=== PATIENT | female | born 1955 | race Caucasian/White ===

== ENCOUNTER 2017-01-04 19:19 | Emergency (ER) | payer OTHER ==
[~2017-01-04] VITALS: Ht 152.4 cm; Wt 67.1 kg
[2017-01-04 19:24] VITALS: TEMP 36.8; Ht 152.4 cm; Wt 67.1 kg
[2017-01-04] MEDS ORDERED: DIAZEPAM 5MG TAB PO ONE (20:00)
[2017-01-04] MEDS ORDERED: IBUP-103 PO (20:31)
--- NOTE | 2017-01-04 21:10 | DIAGNOSTIC IMAGING REPORT ---
CERVICAL SPINE 2 OR 3 VIEWS HISTORY: Pain neck pain COMPARISON: None. FINDINGS: The cervical spine is visualized from C1 through the superior endplate of T1. There is no fracture. Degenerative disc change C5-C7. Anterior and posterior osteophytic change throughout. No evidence for a compression deformity. Prevertebral soft tissues and the atlantodens interval are intact. IMPRESSION: Considerable degenerative change of the mid to lower cervical spine. No acute process. The above report was generated using voice recognition software. It may contain grammatical, syntax or spelling errors. Electronically signed by: Mendoza Jones M.D. 01/04/2017 9:08 PM Dictated Date/Time: 01/04/2017 9:08 PM
--- NOTE | 2017-01-04 21:11 | DIAGNOSTIC IMAGING REPORT ---
THORACIC SPINE 3 VIEWS ROUTINE HISTORY: Pain back pain COMPARISON: None. FINDINGS: There is no fracture. Mild S shaped scoliosis. Moderate degenerative disc change throughout the entire thoracic region. IMPRESSION: Degenerative change. No acute process. The above report was generated using voice recognition software. It may contain grammatical, syntax or spelling errors. Electronically signed by: Mendoza Jones M.D. 01/04/2017 9:09 PM Dictated Date/Time: 01/04/2017 9:09 PM
[2017-01-04] MEDS ORDERED: CYCL5TAB PO (21:25)
--- NOTE | 2017-01-04 21:25 | EMERGENCY ROOM VISIT NOTE ---
ED Visit Note First contact with patient: 19:48 CHIEF COMPLAINT: Low back pain HISTORY OF PRESENT ILLNESS: This 61-year-old female patient presents to the emergency department ambulatory, with her , complaining of pain in the mid back which began in the middle of the night. The patient states yesterday, she had been moving gadgets around in her room, and doing more physical labor than she normally does. She states nothing was overly heavy, however states this was more active than normal. The patient was awoken at approximately 0130 hrs. with significant back stiffness. She states she attempted to take a warm bath, which did not help to settle down her pain. The patient has intermittently been applying cold and heat to the back throughout the day, none of which has been helping. The pain is now constant and worse with movement. The patient is now experiencing back spasms intermittently, but frequently. The patient notes the pain as a constant soreness at rest and a 4/10, but pain worsens with movement and spasms to an 8/10. The patient has taken ibuprofen every 4 hours without relief of the pain. The patient denies any loss of control of their bowel or bladder functions. There has been no leg numbness or weakness, and no change in sensation. No nausea or vomiting or abdominal pain. No chest pain or shortness of breath. The patient has not had prior back injuries. No dysuria or increased urinary frequency. REVIEW OF SYSTEMS: A 10-system review of systems was performed with positives and pertinent negatives listed in the history of present illness. All other systems were reviewed and are negative. ALLERGIES: Gentamicin, aminoglycosides MEDICATIONS: None PMH: Kidney stones SOCIAL HISTORY: The patient lives locally alone. She denies drug, alcohol, tobacco use. PHYSICAL EXAM: VITALS: Vitals are noted on the nurse's note and reviewed by myself. Vital signs stable. GENERAL: 61-year-old female, in no acute distress, nondiaphoretic, well- developed well-nourished. SKIN: The skin was without rashes, erythema, edema, or bruising. Capillary refill less than 2 seconds. NECK: Supple without nuchal rigidity. No cervical spine tenderness. No paraspinous muscle tenderness. HEART: Regular rate and rhythm without murmurs gallops or rubs. LUNGS: Clear to auscultation bilaterally without wheezes, rales or rhonchi. ABDOMEN: Positive bowel sounds x 4. Normal tympanic percussion. Soft, nontender, without masses or organomegaly. Zhang sign negative. MUSCULOSKELETAL: No muscle atrophy, erythema, or edema noted of the back. There is moderate tenderness over the thoracic and cervical spinous processes. There is no tenderness over the lumbar spinous processes. There is moderate tenderness over the paraspinous muscles in the thoracic and cervical region. There are muscle spasms present. The patient is slow to move around with maximum tenderness with position changes. Negative straight leg raise test. NEURO: Patient was alert and oriented to person place and time. Normal sensation to light and sharp touch. Deep tendon reflexes 2+ in the lower extremities. Dorsalis pedis pulse 2+ bilaterally. Strength 5/5 and equal in the bilateral lower extremities. RADIOLOGY: X-Ray Cervical Spine: FINDINGS: The cervical spine is visualized from C1 through the superior endplate of T1. There is no fracture. Degenerative disc change C5-C7. Anterior and posterior osteophytic change throughout. No evidence for a compression deformity. Prevertebral soft tissues and the atlantodens interval are intact. IMPRESSION: Considerable degenerative change of the mid to lower cervical spine. No acute process. X-Ray Thoracic Spine: FINDINGS: There is no fracture. Mild S shaped scoliosis. Moderate degenerative disc change throughout the entire thoracic region. IMPRESSION: Degenerative change. No acute process. EMERGENCY DEPARTMENT COURSE: The patient was seen and evaluated as above. X- rays of the cervical and thoracic spine were obtained and reviewed by myself and radiologist as negative for acute injury. The patient was given Toradol and Valium, which she states did help with her discomfort. I discussed discharge instructions with the patient, and she was discharged home in good condition with a home pack for Flexeril. DIFFERENTIAL DIAGNOSIS: Thoracic strain, cervical strain, cervical fracture, thoracic fracture, degenerative disc disease, malignancy, and others. DIAGNOSIS: Thoracic strain with spasms DISCHARGE INSTRUCTIONS AND TREATMENT: You have been treated in the Emergency Department for Back Pain. You have received pain medicine in the emergency department which impairs your ability to operate a vehicle. It is illegal for you to drive after receiving these medicines. You have been prescribed Flexeril (cyclobenzaprine) 1-2 tabs orally, three times per day. Do NOT exceed 30 mg (6 tabs) per day. Take your first dose at bedtime as it can make you drowsy. Always take all medications as prescribed. For pain control, you can use the following smwo-wpu-kwjgevw medicines (if >12 yo): - Extra strength (500mg/tab) Tylenol (acetaminophen) 2 tabs every 6-8 hours as needed. Do not exceed 6 tablets in a 24 hour period. Avoid taking more than 3 grams (3000 mg) of Tylenol per day. This includes any other sources of acetaminophen you may take on a regular basis. - Regular strength (200 mg/tab) Advil (ibuprofen) 2-3 tabs every 6-8 hours as needed. Do not exceed a dose of 3200 mg per day. A heating pad can be used over the area for continued soothing relief. You should schedule a follow-up appointment in 2-3 days with your Primary Care Provider for further evaluation and treatment of your back pain. You may consider contacting orthopedics for further evaluation and management if no improvement. Consider taking the following for your arthritis: - Fish Oil 2000mg twice daily - Glucosamine as directed - Tumeric 500mg daily Return to the Emergency Department if your current symptoms worsen despite treatment course outlined above, or if you develop any of the following symptoms : intractable pain despite aforementioned treatment course, loss of control of your bowel or bladder, numbness or tingling in your groin, or development of a fever. Current/Historical Medications Scheduled Cyclobenzaprine Hcl (Flexeril), 5 MG PO TID Ibuprofen Tab (Advil), 200-600 MG PO Q4H Allergies Coded Allergies: Aminoglycosides (Verified Allergy, Mild, EYE BECAME RED,SWOLLEN WITH OPTH IDA, 01/04/17) Gentamicin (Verified Allergy, Mild, EYE BECAME RED,SWOLLEN WITH OPTH IDA, 01/04/17) Vital Signs Date Time Temp Pulse Resp B/P (MAP) Pulse Ox O2 Delivery O2 Flow Rate FiO2 01/04/17 21:27 74 16 131/77 99 01/04/17 19:24 36.8 90 18 155/72 98 Room Air Medications Administered Medications (Trade) Dose Ordered Sig/Paulino Route Start Time Stop Time Status Last Admin Dose Admin Diazepam (Valium Tab) 5 mg NOW ONCE PO 01/04/17 20:00 01/04/17 20:02 DC 01/04/17 20:09 5 MG Cyclobenzaprine HCl (FLEXERIL 10MG Home Pack) 1 homepack UD ONCE PO 01/04/17 21:30 01/04/17 21:31 DC 01/04/17 21:30 1 HOMEPACK Departure Information Impression Primary Impression: Back pain Additional Impression: Neck pain Dispostion Home / Self-Care Condition GOOD Prescriptions Cyclobenzaprine Hcl (FLEXERIL) 5 Mg Tab 5 MG PO TID, #15 TAB PRN Prov: Dolores Montoya DAJUAN Mendoza 01/04/17 Referrals No Doctor, Assigned (PCP) Patient Instructions ED Spasm Muscle, [facility] Additional Instructions You have been treated in the Emergency Department for Back Pain. You have received pain medicine in the emergency department which impairs your ability to operate a vehicle. It is illegal for you to drive after receiving these medicines. You have been prescribed Flexeril (cyclobenzaprine) 1-2 tabs orally, three times per day. Do NOT exceed 30 mg (6 tabs) per day. Take your first dose at bedtime as it can make you drowsy. Always take all medications as prescribed. For pain control, you can use the following lyxd-met-towcbiw medicines (if >12 yo): - Extra strength (500mg/tab) Tylenol (acetaminophen) 2 tabs every 6-8 hours as needed. Do not exceed 6 tablets in a 24 hour period. Avoid taking more than 3 grams (3000 mg) of Tylenol per day. This includes any other sources of acetaminophen you may take on a regular basis. - Regular strength (200 mg/tab) Advil (ibuprofen) 2-3 tabs every 6-8 hours as needed. Do not exceed a dose of 3200 mg per day. A heating pad can be used over the area for continued soothing relief. You should schedule a follow-up appointment in 2-3 days with your Primary Care Provider for further evaluation and treatment of your back pain. You may consider contacting orthopedics for further evaluation and management if no improvement. Consider taking the following for your arthritis: - Fish Oil 2000mg twice daily - Glucosamine as directed - Tumeric 500mg daily Return to the Emergency Department if your current symptoms worsen despite treatment course outlined above, or if you develop any of the following symptoms : intractable pain despite aforementioned treatment course, loss of control of your bowel or bladder, numbness or tingling in your groin, or development of a fever. Problem Qualifiers Primary Impression: Back pain Back pain location: thoracic back pain Chronicity: acute Back pain laterality: bilateral Qualified Codes: M54.6 - Pain in thoracic spine
[2017-01-04 21:27] VITALS: BP 131/77; PULSE 74; O2SAT 99
[2017-01-04] MEDS ORDERED: FLEXERIL HOME PACK 10 MG VIAL PO ONE (21:30)
== END 2017-01-04 21:34 | disposition home or self-care (01) ==
LOC: C.EDB 19:20
DX: S39.012A Strain of muscle, fascia and tendon of lower back, initial encounter (principal); M62.830 Muscle spasm of back; M54.2 Cervicalgia; X58.XXXA Exposure to other specified factors, initial encounter; Z87.442 Personal history of urinary calculi

== ENCOUNTER 2018-01-19 20:51 | Emergency (ER) | payer OTHER ==
[~2018-01-19] VITALS: Ht 152.4 cm; Wt 65.9 kg
[~2018-01-19 20:51] MED LIST: IBUP-103 PO
[2018-01-19 20:57] VITALS: TEMP 36.6; Ht 152.4 cm; Wt 65.9 kg
--- NOTE | 2018-01-19 21:27 | DIAGNOSTIC IMAGING REPORT ---
R FOOT MIN 3 VIEWS ROUTINE CLINICAL HISTORY: right foot injury trauma. Pain. COMPARISON: None. DISCUSSION: The bones and joint spaces appear intact. There is no evidence of fracture, dislocation or bony disease. There is no evidence for soft tissue swelling. IMPRESSION: Negative study. The above report was generated using voice recognition software. It may contain grammatical, syntax or spelling errors. Electronically signed by: Mendoza Jones M.D. 01/19/2018 9:26 PM Dictated Date/Time: 01/19/2018 9:25 PM
--- NOTE | 2018-01-19 21:50 | DIAGNOSTIC IMAGING REPORT ---
R ANKLE MIN 3 VIEWS ROUTINE CLINICAL HISTORY: ankle pain, eval fx trauma. Pain. COMPARISON: None. DISCUSSION: Small old avulsion tip medial malleolus. Calcific fragment is well-corticated. No acute bony abnormality. Small heel spur. Mild ossification Achilles tendon insertion. There is no evidence for soft tissue swelling. IMPRESSION: No acute process. Small heel spur. Small old avulsion medial malleolus. The above report was generated using voice recognition software. It may contain grammatical, syntax or spelling errors. Electronically signed by: Mendoza Jones M.D. 01/19/2018 9:49 PM Dictated Date/Time: 01/19/2018 9:48 PM
--- NOTE | 2018-01-19 21:51 | EMERGENCY ROOM VISIT NOTE ---
ED Visit Note First contact with patient: 21:16 CHIEF COMPLAINT: Ankle pain HISTORY OF PRESENT ILLNESS: This 62-year-old female patient presents to the emergency department by private vehicle after sustaining an injury to the right ankle and foot 3 days ago. 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 The patient rates the pain as aching, throbbing and 6/10. The patient is not able to bear weight on the foot. Constant pain, worse with movement, weight bearing, and the dependent position. No knee pain, the patient is able to move their toes. No numbness or weakness of the foot, no laceration. The patient has not had a previous fracture to this ankle. The patient has taken ibuprofen for the pain with improvement in her pain. The patient denies any other injury. REVIEW OF SYSTEMS: A 6 system review of systems was completed with positives and pertinent negatives listed in the HPI. ALLERGIES: Reviewed in chart, see below MEDICATIONS: No current medications. PMH: No significant past medical or surgical history. SOCIAL HISTORY: Lives at home. Denies tobacco use. PHYSICAL EXAM: Vital Signs: Reviewed Nurse's notes, vital signs stable. GENERAL : Pleasant and cooperative, no acute distress, well-developed, well-nourished. MENTAL STATUS: Alert, oriented to person place and time, and cooperative. MUSCULOSKELETAL: The right ankle is mildly swollen and tender over the medial malleolus and midfoot, but the skin is intact and there is no ligamentous instability. There is no fifth metatarsal tenderness. There is no tenderness over the rest of the foot. There is no calf or tibia/fibular tenderness. There is no visual deformity. The foot and toes are warm and well-perfused. Dorsalis pedis pulse 2+. Sensation to pain and light touch is intact. Capillary refill less than 2 seconds. EMERGENCY DEPARTMENT COURSE: I examined the patient. Differential diagnosis includes contusion, sprain/strain, fracture, dislocation, among others. X-rays of the right foot and ankle were reviewed by myself and read by radiology and reveal no fracture. Gel ankle splint was applied to the ankle under my direction and the position was satisfactory. Neurovascular status was rechecked and intact. The patient was instructed on the use of crutches. Patient was educated regarding continued pain management at home, she was encouraged to follow-up with the orthopedic surgeon, was given strict return precautions should her symptoms worsen, she verbalized understanding. The patient was discharged home in good condition. Current/Historical Medications Scheduled Ibuprofen Tab (Advil), 200-600 MG PO Q4H Allergies Coded Allergies: Aminoglycosides (Verified Allergy, Mild, EYE BECAME RED,SWOLLEN WITH OPTH IDA, 01/04/17) Gentamicin (Verified Allergy, Mild, EYE BECAME RED,SWOLLEN WITH OPTH IDA, 01/04/17) Vital Signs Date Time Temp Pulse Resp B/P (MAP) Pulse Ox O2 Delivery O2 Flow Rate FiO2 01/19/18 22:39 81 18 124/79 96 01/19/18 20:57 36.6 90 18 131/83 96 Room Air Departure Information Impression Primary Impression: Contusion of right foot Additional Impression: Sprain of right medial ankle joint Dispostion Home / Self-Care Condition GOOD Referrals No Doctor, Assigned (PCP) Candido Segura D.O. Patient Instructions ED Contusion Foot, ED Crutch Walking, ED Sprain Ankle, [facility] Additional Instructions DISCHARGE INSTRUCTIONS: You have been evaluated and treated in the emergency department today for your right foot and ankle injury. X-rays today[] Ice and elevation for 2 days, use crutches to avoid weight bearing on the right foot, wear the splint on the right ankle for support. Ibuprofen 600 mg and Tylenol 650 mg every 6 hours if needed for pain. For best results, alternate between Tylenol and ibuprofen every 3-4 hours. Follow up with the orthopedic surgeon next week--call for an appointment. Please return to the emergency department for any worsening symptoms, including severe worsening pain, severe worsening swelling, loss of feeling in the foot, discoloration of the foot, or any other concerns. Problem Qualifiers
[2018-01-19 22:39] VITALS: BP 124/79; PULSE 81; O2SAT 96
== END 2018-01-19 22:30 | disposition home or self-care (01) ==
LOC: C.EDB 20:52 → C.EDD 22:30
DX: S90.31XA Contusion of right foot, initial encounter (principal); S93.401A Sprain of unspecified ligament of right ankle, initial encounter; X50.1XXA Overexertion from prolonged static or awkward postures, initial encounter; Y92.010 Kitchen of single-family (private) house as the place of occurrence of the external cause; Z88.1 Allergy status to other antibiotic agents

== ENCOUNTER 2021-04-18 13:42 | Inpatient (IN) ==
[2021-04-18] MEDS ORDERED: NITROGLYCERIN 2% OINTMENT 30GM TUBE EXT STA (14:30)
--- NOTE | 2021-04-18 14:38 | Emergency Department Note ---
History of Present Illness General Chief complaint: Chest Pain Stated complaint: CHEST HEAVINESS,SOB,LIGHTHEADED Time Seen by Provider: 04/18/21 13:55 Source: patient Mode of arrival: ambulatory Limitations: no limitations History of Present Illness Provider complaint: chest pain into back Onset (ago): day(s) 2 Location: chest Radiation: back Pain Consistency: + intermittent Maximum Pain Intensity: 8 Relieved By: + rest Exacerbated By: + movement Associated symptoms: + chest pain and + shortness of breath; no fever/chills, no loss of appetite, no malaise, no nausea/vomiting or no syncope Treatments prior to arrival: none This is a 65-year-old female presents emergency department with concern for chest pain. Patient states a few days ago she began having intermittent chest heaviness/pressure. She states this was mostly with exertion and would go away with rest. She denies accompanying symptoms. She thought initially it might be an exacerbation of her COPD which she has due to a prior smoking history. She states today while seated at [employer] the pain ball returned only this time was more persistent and continued to worsen. She and her went to the grocery store to shop following [employer] and pain continued to worsen with exertion. No other recent illness, fevers, no change in activity. No recent dietary changes or history of significant GERD. Patient denies any worsening cough, nasal congestion, rhinorrhea. Patient denies any black or bloody stools. She denies any lower extremity edema. No prior cardiac evaluation, no history of heart problems. Patient does state her mother had a heart attack at about this age. Pt seen during a time of high acuity and national emergency pandemic while wearing PPE. Home Medications Medication Instructions Recorded Confirmed Type fluticasone 113mcg-salmeterol 1 inh INHALATION BID 07/16/20 04/18/21 History 14mcg/actuation breath act,powder sensor ([employer] Dig[employer]) omeprazole 20 mg capsule,delayed 20 mg PO DAILY 07/16/20 04/18/21 History release mupirocin 2 % topical ointment See Rx Instructions TOPICAL BID 04/19/21 Rx PRN #15 g aspirin 81 mg tablet,delayed 81 mg PO QAM #30 tab 04/20/21 Rx release atorvastatin 40 mg tablet 40 mg PO QAM #30 tab 04/20/21 Rx clopidogrel 75 mg tablet 75 mg PO QAM #30 tab 04/20/21 Rx Allergies Allergy/AdvReac Type Severity Reaction Status Date / Time Aminoglycosides Allergy Mild EYE BECAME Verified 04/18/21 14:25 RED,SWOLLEN WITH OPTH IDA gentamicin Allergy Mild EYE BECAME Verified 04/18/21 14:25 RED,SWOLLEN WITH OPTH IDA Past Med/Surg History Medical History (Updated 04/18/21 @ 20:32 by Jd Tamayo MD) Conductive hearing loss of both ears COPD (chronic obstructive pulmonary disease) H/O gastroesophageal reflux (GERD) Sensorineural hearing loss of both ears Surgical History History of cholecystectomy History of hysterectomy History of lithotripsy History of repair of rotator cuff Family History Father Cancer Hearing loss Hypertension Heart disease Mother Hypertension Heart disease Sister Asthma Other No family history of allergies No family history of bleeding disorder Denies family history of Stroke Social History Smoking Status: Former smoker Tobacco Type: Cigarettes packs per day: 1; Cigarettes Per Day: x 25-30 years, quit in 1981; Hx Alcohol Use: No Hx Substance Use: No Preferred Language: Belarusian Communication Ability: Effective Dental Technician Apprentice Required: No Beliefs That Will Affect Care: None marital status: / Current Living Situation: Family Current Living Situation Comment: Lives in a home with her son and daughter in law current occupational status: retired How many Children do You have: 2 Feels Safe at Home: Yes Assistive Devices: Glasses Review of Systems A total of 10 systems reviewed and were otherwise negative All systems reviewed & are unremarkable except as noted in HPI & below Physical Exam Vital Signs Vital Signs - 24 hr 04/18/21 13:46 04/18/21 14:15 04/18/21 14:30 Temperature 36.4 C L Temperature Source Temporal Artery Scan Pulse Rate 83 67 63 Pulse Rate [Right Finger] Pulse Rate from SpO2 Sensor 65 65 Pulse Rhythm [Right Finger] Pulse Strength [Right Finger] Respiratory Rate 18 16 12 Respiratory Effort / Characteristics Non-Labored Respiratory Depth Normal Respiratory Pattern Regular Blood Pressure 195/94 H 142/81 H Blood Pressure [Left Arm] Blood Pressure Mean 127 101 Blood Pressure Mean [Left Arm] Blood Pressure Position Sitting Blood Pressure Position [Left Arm] Pulse Oximetry 96 97 97 Oxygen Delivery Method Room Air Sepsis Recent Fever Within 48 Hours No Sepsis New/Unexplained Change in Mental Status No Sepsis Action Taken by Nursing No Action Required 04/18/21 15:00 04/18/21 15:30 04/18/21 15:43 Temperature Temperature Source Pulse Rate 63 66 Pulse Rate [Right Finger] 71 Pulse Rate from SpO2 Sensor 62 65 Pulse Rhythm [Right Finger] Regular Pulse Strength [Right Finger] Normal Respiratory Rate 14 18 16 Respiratory Effort / Characteristics Non-Labored Respiratory Depth Normal Respiratory Pattern Regular Blood Pressure 146/79 H Blood Pressure [Left Arm] 154/85 H Blood Pressure Mean 101 Blood Pressure Mean [Left Arm] 108 Blood Pressure Position Blood Pressure Position [Left Arm] Lying Pulse Oximetry 97 96 97 Oxygen Delivery Method Room Air Sepsis Recent Fever Within 48 Hours Sepsis New/Unexplained Change in Mental Status Sepsis Action Taken by Nursing 04/18/21 16:00 04/18/21 16:31 04/18/21 17:00 Temperature Temperature Source Pulse Rate 69 Pulse Rate [Right Finger] 65 Pulse Rate from SpO2 Sensor 71 Pulse Rhythm [Right Finger] Regular Pulse Strength [Right Finger] Normal Respiratory Rate 17 16 Respiratory Effort / Characteristics Non-Labored Respiratory Depth Normal Respiratory Pattern Regular Blood Pressure Blood Pressure [Left Arm] 133/64 Blood Pressure Mean Blood Pressure Mean [Left Arm] 87 Blood Pressure Position Blood Pressure Position [Left Arm] Lying Pulse Oximetry 96 97 Oxygen Delivery Method Room Air Sepsis Recent Fever Within 48 Hours Sepsis New/Unexplained Change in Mental Status Sepsis Action Taken by Nursing GENERAL: alert, well appearing, well nourished, no distress, non-toxic EYE EXAM: normal conjunctiva, PERRL and EOM's grossly intact OROPHARYNX: no exudate, no erythema, lips, buccal mucosa, and tongue normal and mucous membranes are moist NECK: supple, no nuchal rigidity, no adenopathy, non-tender LUNGS: Clear to auscultation. Normal chest wall mechanics, no w/r/r HEART: no murmurs, S1 normal and S2 normal, no reproducible chest wall tenderness with palpation ABDOMEN: abdomen soft, non-tender, normo-active bowel sounds, no masses, no rebound or guarding. BACK: Back is symmetrical on inspection and there is no deformity, no midline tenderness, no CVA tenderness. SKIN: no rashes and no bruising UPPER EXTREMITIES: upper extremities are grossly normal. FROM, nml pulses b/l. LOWER EXTREMITIES: No pitting edema. FROM, nml pulses b/l. NEURO EXAM: Normal sensorium, cranial nerves II-XII grossly intact, normal speech, no gross weakness of arms, no gross weakness of legs. Gross sensation intact. Course Course 1654: Pt states symptoms still worse with exertion, improved with rest. VS stable and BP improved. 1800: Discussed with hospitalist. Administered Medications Discontinued Medications Acetaminophen (Acetaminophen 325 Mg Tab) 650 mg PO Q4H PRN PRN Reason: Pain or Fever Stop: 05/18/21 23:05 Last Admin: 04/20/21 05:51 Dose: 650 mg Documented by: [id number] Aspirin (Aspirin Chew 324 Mg) 324 mg PO NOW STA Stop: 04/18/21 17:43 Last Admin: 04/18/21 18:45 Dose: 324 mg Documented by: [id number] Aspirin (Aspirin 81 Mg Ectab) 81 mg PO [facility] Stop: 05/20/21 08:59 Last Admin: 04/20/21 08:51 Dose: 81 mg Documented by: [id number] Atorvastatin Calcium (Atorvastatin 40 Mg Tab) 40 mg PO [facility] Stop: 05/20/21 08:59 Last Admin: 04/20/21 08:51 Dose: 40 mg Documented by: [id number] Clopidogrel Bisulfate (Clopidogrel Bisulfate 300 Mg Tab) Confirm Administered Dose 600 mg .ROUTE .STK-MED ONE Stop: 04/19/21 16:37 Last Admin: 04/19/21 16:37 Dose: 600 mg Documented by: [id number] Clopidogrel Bisulfate (Clopidogrel Bisulfate 75 Mg Tab) 75 mg PO [facility] Stop: 05/20/21 08:59 Last Admin: 04/20/21 08:51 Dose: 75 mg Documented by: [id number] Clopidogrel Bisulfate (Clopidogrel Bisulfate 300 Mg Tab) 300 mg PO NOW STA Stop: 04/19/21 17:59 Last Admin: 04/19/21 21:01 Dose: 300 mg Documented by: [id number] Clopidogrel Bisulfate (Clopidogrel Bisulfate 300 Mg Tab) Confirm Administered Dose 300 mg .ROUTE .STK-MED ONE Stop: 04/19/21 20:30 Last Admin: 04/19/21 21:01 Dose: Not Given Documented by: [id number] Famotidine (Famotidine 20mg/5ml Iv Push) 20 mg IV ONE STA Stop: 04/18/21 17:43 Last Admin: 04/18/21 18:45 Dose: 20 mg Documented by: [id number] Fentanyl Citrate (Fentanyl Citrate 100 Mcg/2 Ml Vial) 50 mcg IV Q15M PRN PRN Reason: Pain Stop: 05/02/21 16:33 Last Admin: 04/18/21 16:46 Dose: 50 mcg Documented by: [id number] Fentanyl Citrate (Fentanyl Citrate 100 Mcg/2 Ml Vial) Confirm Administered Dose 100 mcg .ROUTE .STK-MED ONE Stop: 04/19/21 14:44 Last Admin: 04/19/21 16:11 Dose: 100 mcg Documented by: [id number] Fentanyl Citrate (Fentanyl Citrate 100 Mcg/2 Ml Vial) Confirm Administered Dose 100 mcg .ROUTE .STK-MED ONE Stop: 04/19/21 16:40 Last Increment: 04/19/21 16:40 Dose: 25 mcg Documented by: [id number] Heparin Sodium (Porcine) (Heparin Sod 5,000 Unit/0.5 Ml Vial) 5,000 units SQ Q12 [facility] Stop: 05/18/21 23:05 Last Admin: 04/20/21 08:52 Dose: 5,000 units Documented by: [id number] Admin: 04/19/21 21:02 Dose: Not Given Documented by: [id number] Admin: 04/19/21 10:03 Dose: 5,000 units Documented by: [id number] Admin: 04/19/21 00:51 Dose: Not Given Documented by: [id number] Heparin Sodium (Porcine) (Heparin (Porcine) 1000 Unit/Ml 10 Ml (Pick Up Driver Use Only)) Confirm Administered Dose 10,000 units .ROUTE .STK-MED ONE Stop: 04/19/21 14:43 Last Admin: 04/19/21 16:24 Dose: 10,000 units Documented by: [id number] Heparin Sodium/Sodium Chloride (Heparin In Nss Infusion 1000 Unit/500 Ml (2 U/Ml) Bag) Confirm Administered Dose 3,000 units IV .STK-MED ONE Stop: 04/19/21 14:44 Last Admin: 04/19/21 17:32 Dose: Not Given Documented by: [id number] Sodium Chloride (Nss 1000ml) 1,000 mls @ 125 mls/hr IV .Q8H [facility] Stop: 05/18/21 14:44 Last Admin: 04/19/21 06:59 Dose: Not Given Documented by: [id number] Infusion: 04/18/21 22:29 Dose: 0 mls/hr Documented by: [id number] Admin: 04/18/21 14:56 Dose: 125 mls/hr Documented by: [id number] Sodium Chloride (Nss 1000ml) 1,000 mls @ 100 mls/hr IV .Q10H [facility] Stop: 04/19/21 22:14 Last Infusion: 04/19/21 22:52 Dose: 0 mls/hr Documented by: [id number] Admin: 04/19/21 18:00 Dose: 100 mls/hr Documented by: [id number] Ioversol (Optiray 320 125ml) 120 ml IV ONCE ONE Stop: 04/18/21 17:16 Last Admin: 04/18/21 17:16 Dose: 1 ml Documented by: [id number] Metoprolol Tartrate (Metoprolol Tartrate 1 Mg/Ml Vial) 5 mg IV NOW [facility] Stop: 04/18/21 16:35 Last Admin: 04/19/21 07:08 Dose: Not Given Documented by: [id number] Midazolam HCl (Midazolam Hcl 1 Mg/Ml 2ml Vial) Confirm Administered Dose 2 mg .ROUTE .STK-MED ONE Stop: 04/19/21 14:44 Last Admin: 04/19/21 16:11 Dose: 2 mg Documented by: [id number] Midazolam HCl (Midazolam Hcl 1 Mg/Ml 2ml Vial) Confirm Administered Dose 2 mg .ROUTE .STK-MED ONE Stop: 04/19/21 15:44 Last Increment: 04/19/21 16:37 Dose: 1 mg Documented by: [id number] Miscellaneous ([employer]: Order Awaiting Action) 1 ea N/A QS [facility] Stop: 05/19/21 07:59 Last Admin: 04/19/21 17:38 Dose: Not Given Documented by: [id number] Admin: 04/19/21 06:58 Dose: Not Given Documented by: [id number] Nicardipine HCl (Nicardipine Hcl Inj 2.5 Mg/Ml 10 Ml Amp) Confirm Administered Dose 25 mg .ROUTE .STK-MED ONE Stop: 04/19/21 14:43 Last Admin: 04/19/21 17:32 Dose: Not Given Documented by: [id number] Nitroglycerin (Nitroglycerin 2% Ointment 30gm Tube) 1 inch EXT NOW STA Stop: 04/18/21 14:31 Last Admin: 04/18/21 14:56 Dose: 1 inch Documented by: [id number] Nitroglycerin (Nitroglycerin 2% Ointment 30gm Tube) 1 inch EXT Q6H PRN PRN Reason: chest pain Stop: 05/19/21 05:44 Last Admin: 04/19/21 05:58 Dose: 1 inch Documented by: [id number] Nitroglycerin/Dextrose (Nitroglycerin/D5w 100mcg/Ml 20ml Syr) Confirm Administered Dose 2,000 mcg .ROUTE .STK-MED ONE Stop: 04/19/21 14:44 Last Admin: 04/19/21 17:32 Dose: Not Given Documented by: [id number] Fluticasone/Salmeterol: Non- Formulary Patient's Own Med 1 ea PO BID [facility] Stop: 05/19/21 20:59 Last Admin: 04/20/21 08:53 Dose: 1 puffs Documented by: [id number] Admin: 04/19/21 21:02 Dose: 1 puffs Documented by: [id number] Ondansetron HCl (Ondansetron Inj 2 Mg/Ml 2 Ml Vial) Confirm Administered Dose 4 mg .ROUTE .STK-MED ONE Stop: 04/19/21 16:49 Last Admin: 04/19/21 16:52 Dose: 4 mg Documented by: [id number] Pantoprazole Sodium (Pantoprazole 40 Mg Tab) 40 mg PO DAILY [facility] Stop: 05/19/21 08:59 Last Admin: 04/20/21 08:51 Dose: 40 mg Documented by: [id number] Admin: 04/19/21 12:34 Dose: Not Given Documented by: [id number] Medical Decision Making Differential Diagnosis Differential diagnoses includes but is not limited to acute coronary syndrome, myocardial infarction, pericarditis, pulmonary embolus, aortic dissection, pneumonia, pneumothorax, musculoskeletal, shingles, esophageal. Medical Records Attestation: I reviewed the patient's medical records. Home Medications Current Medication List: was personally reviewed by me Laboratory Data Attestation: I reviewed the patient's lab results. Result diagrams: 04/19/21 03:09 04/19/21 03:09 Lab Results 04/18/21 04/18/21 04/18/21 Range/Units 14:45 14:45 20:20 WBC 9.23 (4.8-10.8) K/uL RBC 4.13 L (4.2-5.4) M/uL Hgb 13.0 (12.0-16.0) g/dL Hct 38.4 (37-47) % MCV 93.0 (80-100) fL MCH 31.5 (25-34) pg MCHC 33.9 (32-36) g/dL RDW Std Deviation 46.3 (36.4-46.3) fL RDW Coeff of Ashok 13.5 (11.5-14.5) % Plt Count 243 (130-400) K/uL MPV 10.8 H (7.4-10.4) fL Immature Gran % (Auto) 0.3 % Neut % (Auto) 61.7 % Lymph % (Auto) 26.3 % [place] % (Auto) 7.6 % Eos % (Auto) 3.8 % Baso % (Auto) 0.3 % Neut # (Auto) 5.69 (1.4-6.5) K/uL Lymph # (Auto) 2.43 (1.2-3.4) K/uL [place] # (Auto) 0.70 H (0.11-0.59) K/uL Eos # (Auto) 0.35 (0-0.5) K/uL Baso # (Auto) 0.03 (0-0.2) K/uL Immature Gran # (Auto) 0.03 H (0.00-0.02) K/uL Activ Coag Time Kaolin (94-140) SECONDS Sodium 142 (136-145) mmol/L Potassium 3.8 (3.5-5.1) mmol/L Chloride 108 H (98-107) mmol/L Carbon Dioxide 24 (21-32) mmol/L Anion Gap 10.0 (3-11) BUN 15 (7-18) mg/dl Creatinine 0.71 (0.6-1.2) mg/dl Est Cr Clr Drug Dosing 67.6 ml/min Est GFR ( Amer) 102.2 ml/min Est GFR (Non-Af Amer) 88.1 ml/min BUN/Creatinine Ratio 21.1 H (10-20) Glucose 86 (70-99) mg/dl Calcium 8.9 (8.5-10.1) mg/dl Magnesium 1.9 (1.8-2.4) mg/dl Total Bilirubin 0.3 (0.2-1) mg/dl AST 15 (15-37) U/L ALT 35 (12-78) U/L Alkaline Phosphatase 96 (45-117) U/L Troponin I < 0.015 (0-0.045) ng/ml NT-Pro-B Natriuret Pep 36 (0-900) pg/ml Total Protein 6.9 (6.4-8.2) gm/dl Albumin 3.6 (3.4-5.0) gm/dl Globulin 3.3 (2.5-4.0) gm/dl Albumin/Globulin Ratio 1.1 (0.9-2) Lipase 98 (73-393) U/L COVID-19 Eval Order Covid19 at [facility] SARS-CoV-2 (PCR) (Negative) Hepatitis C Ab Screen (Neg) 04/18/21 04/18/21 04/19/21 Range/Units 20:20 23:25 03:09 WBC (4.8-10.8) K/uL RBC (4.2-5.4) M/uL Hgb (12.0-16.0) g/dL Hct (37-47) % MCV (80-100) fL MCH (25-34) pg MCHC (32-36) g/dL RDW Std Deviation (36.4-46.3) fL RDW Coeff of Ashok (11.5-14.5) % Plt Count (130-400) K/uL MPV (7.4-10.4) fL Immature Gran % (Auto) % Neut % (Auto) % Lymph % (Auto) % [place] % (Auto) % Eos % (Auto) % Baso % (Auto) % Neut # (Auto) (1.4-6.5) K/uL Lymph # (Auto) (1.2-3.4) K/uL [place] # (Auto) (0.11-0.59) K/uL Eos # (Auto) (0-0.5) K/uL Baso # (Auto) (0-0.2) K/uL Immature Gran # (Auto) (0.00-0.02) K/uL Activ Coag Time Kaolin (94-140) SECONDS Sodium (136-145) mmol/L Potassium (3.5-5.1) mmol/L Chloride (98-107) mmol/L Carbon Dioxide (21-32) mmol/L Anion Gap (3-11) BUN (7-18) mg/dl Creatinine (0.6-1.2) mg/dl Est Cr Clr Drug Dosing ml/min Est GFR ( Amer) ml/min Est GFR (Non-Af Amer) ml/min BUN/Creatinine Ratio (10-20) Glucose (70-99) mg/dl Calcium (8.5-10.1) mg/dl Magnesium (1.8-2.4) mg/dl Total Bilirubin (0.2-1) mg/dl AST (15-37) U/L ALT (12-78) U/L Alkaline Phosphatase (45-117) U/L Troponin I < 0.015 Cancelled (0-0.045) ng/ml NT-Pro-B Natriuret Pep (0-900) pg/ml Total Protein (6.4-8.2) gm/dl Albumin (3.4-5.0) gm/dl Globulin (2.5-4.0) gm/dl Albumin/Globulin Ratio (0.9-2) Lipase (73-393) U/L COVID-19 Eval Order SARS-CoV-2 (PCR) NEGATIVE (Negative) Hepatitis C Ab Screen (Neg) 04/19/21 04/19/21 04/19/21 Range/Units 03:09 03:09 03:09 WBC 8.55 (4.8-10.8) K/uL RBC 3.75 L (4.2-5.4) M/uL Hgb 11.5 L (12.0-16.0) g/dL Hct 35.0 L (37-47) % MCV 93.3 (80-100) fL MCH 30.7 (25-34) pg MCHC 32.9 (32-36) g/dL RDW Std Deviation 46.9 H (36.4-46.3) fL RDW Coeff of Ashok 13.7 (11.5-14.5) % Plt Count 215 (130-400) K/uL MPV 10.6 H (7.4-10.4) fL Immature Gran % (Auto) 0.1 % Neut % (Auto) 63.3 % Lymph % (Auto) 22.8 % [place] % (Auto) 10.2 % Eos % (Auto) 3.2 % Baso % (Auto) 0.4 % Neut # (Auto) 5.42 (1.4-6.5) K/uL Lymph # (Auto) 1.95 (1.2-3.4) K/uL [place] # (Auto) 0.87 H (0.11-0.59) K/uL Eos # (Auto) 0.27 (0-0.5) K/uL Baso # (Auto) 0.03 (0-0.2) K/uL Immature Gran # (Auto) 0.01 (0.00-0.02) K/uL Activ Coag Time Kaolin (94-140) SECONDS Sodium 142 (136-145) mmol/L Potassium 3.7 (3.5-5.1) mmol/L Chloride 112 H (98-107) mmol/L Carbon Dioxide 26 (21-32) mmol/L Anion Gap 4.0 (3-11) BUN 15 (7-18) mg/dl Creatinine 0.69 (0.6-1.2) mg/dl Est Cr Clr Drug Dosing 69.4 ml/min Est GFR ( Amer) 104.4 ml/min Est GFR (Non-Af Amer) 90.1 ml/min BUN/Creatinine Ratio 21.5 H (10-20) Glucose 99 (70-99) mg/dl Calcium 8.0 L (8.5-10.1) mg/dl Magnesium (1.8-2.4) mg/dl Total Bilirubin (0.2-1) mg/dl AST (15-37) U/L ALT (12-78) U/L Alkaline Phosphatase (45-117) U/L Troponin I < 0.015 (0-0.045) ng/ml NT-Pro-B Natriuret Pep (0-900) pg/ml Total Protein (6.4-8.2) gm/dl Albumin (3.4-5.0) gm/dl Globulin (2.5-4.0) gm/dl Albumin/Globulin Ratio (0.9-2) Lipase (73-393) U/L COVID-19 Eval Order SARS-CoV-2 (PCR) (Negative) Hepatitis C Ab Screen Neg (Neg) 04/19/21 Range/Units 16:37 WBC (4.8-10.8) K/uL RBC (4.2-5.4) M/uL Hgb (12.0-16.0) g/dL Hct (37-47) % MCV (80-100) fL MCH (25-34) pg MCHC (32-36) g/dL RDW Std Deviation (36.4-46.3) fL RDW Coeff of Ashok (11.5-14.5) % Plt Count (130-400) K/uL MPV (7.4-10.4) fL Immature Gran % (Auto) % Neut % (Auto) % Lymph % (Auto) % [place] % (Auto) % Eos % (Auto) % Baso % (Auto) % Neut # (Auto) (1.4-6.5) K/uL Lymph # (Auto) (1.2-3.4) K/uL [place] # (Auto) (0.11-0.59) K/uL Eos # (Auto) (0-0.5) K/uL Baso # (Auto) (0-0.2) K/uL Immature Gran # (Auto) (0.00-0.02) K/uL Activ Coag Time Kaolin 257 H (94-140) SECONDS Sodium (136-145) mmol/L Potassium (3.5-5.1) mmol/L Chloride (98-107) mmol/L Carbon Dioxide (21-32) mmol/L Anion Gap (3-11) BUN (7-18) mg/dl Creatinine (0.6-1.2) mg/dl Est Cr Clr Drug Dosing ml/min Est GFR ( Amer) ml/min Est GFR (Non-Af Amer) ml/min BUN/Creatinine Ratio (10-20) Glucose (70-99) mg/dl Calcium (8.5-10.1) mg/dl Magnesium (1.8-2.4) mg/dl Total Bilirubin (0.2-1) mg/dl AST (15-37) U/L ALT (12-78) U/L Alkaline Phosphatase (45-117) U/L Troponin I (0-0.045) ng/ml NT-Pro-B Natriuret Pep (0-900) pg/ml Total Protein (6.4-8.2) gm/dl Albumin (3.4-5.0) gm/dl Globulin (2.5-4.0) gm/dl Albumin/Globulin Ratio (0.9-2) Lipase (73-393) U/L COVID-19 Eval Order SARS-CoV-2 (PCR) (Negative) Hepatitis C Ab Screen (Neg) Imaging Data Radiologist's Impression: Abdomen/Pelvis CTA 04/18/21 14:30 CT angio abdomen pelvis w con CLINICAL HISTORY: chest pain into back TECHNIQUE: Multidetector row helical CT of the abdomen, pelvis and bilateral lower extremities down through the feet was performed, following intravenous administration of 140 cc of Omnipaque-350. No oral contrast was administered. Coronal and sagittal reformations were obtained. MIP and 3D volume rendered reconstructions were obtained. Comparison: None available at the time of this dictation. FINDINGS: Lower chest: For findings above the diaphragm, please see CT chest performed same day. Liver: Hepatic steatosis is noted. Gallbladder and biliary tree: Patient is status post cholecystectomy. Physiologic prominence of the biliary ducts is noted. Pancreas: Unremarkable, no focal lesions. Spleen: Unremarkable. Adrenals: Unremarkable. Kidneys and ureters: Unremarkable. Bladder: Limited evaluation due to underdistention. Reproductive organs: Unremarkable. Bowel: A hiatal hernia is seen. The appendix is unremarkable. Lymph nodes Retroperitoneal: Unremarkable. Mesenteric: Unremarkable. Pelvic: Unremarkable. Peritoneum: Normal Abdominal wall: Unremarkable. Bones: Degenerative changes in the visualized spine. CT angiogram: The abdominal aortic contours appear intact without evidence of aneurysmal dilatation and/or dissection. There is evidence of scattered atherosclerotic calcifications of the abdominal aorta and its major branches noted. The origins of the celiac axis, superior mesenteric, inferior mesenteric and bilateral renal arteries are patent. IMPRESSION: 1. No evidence of hemodynamically significant stenosis, extravasation or dissection. 2. No acute intra-abdominal abnormality. 3. Hepatic steatosis. ACT 112: Negative or not required by law. Electronically signed by: Russel Antunez M.D. 04/18/2021 5:34 PM Chest CTA 04/18/21 14:30 CT angio chest dissec wo/w con CLINICAL HISTORY: chest pain into back TECHNIQUE: Multidetector row helical CT of the chest was performed before and after injection of IV contrast. Coronal and sagittal reformations were obtained. Automated dose lowering techniques and/or adjustment according to patient size were utilized for this exam. Comparison: None available at the time of this dictation. FINDINGS: Lungs and pleura: Bilateral peripheral scarring is seen. Heart and pericardium: Heart size is normal. No pericardial effusion. Vessels: No aortic dissection is seen. Mediastinum and armando: Unremarkable. Chest wall and lower neck: Unremarkable. Abdomen: For findings below the diaphragm, please refer to CT of the abdomen dated the same. Bones: Degenerative changes in the thoracic spine. IMPRESSION: 1. No evidence of acute aortic injury. No pulmonary embolism or other acute abnormality. 2. Scattered scarring changes in the bilateral lungs. ACT 112: Negative or not required by law. Electronically signed by: Russel Antunez M.D. 04/18/2021 5:29 PM ECG Data Attestation: I personally reviewed and interpreted this ECG as follows: Indication: + chest pain Rate (beats per minute): 69 Rhythm: + normal sinus ECG Intervals/blocks: + Normal QRS and + Normal QT ECG [place]: + Normal ECG ST segments: + Nonspecific ST abnormalities MDM Narrative This is a 65-year-old female presents due to concern for persistent and worsening exertional chest pain. Due to patient's initial description of pain radiating into the back, she was sent for CT angiography to rule out other vascular etiology. Patient is EKG reassuring and first troponin negative. No evidence of other acute GI etiology contributing to discomfort. Patient with recurrent symptoms while ambulatory to the bathroom here. Symptoms did improve with rest and with additional medication. Patient was hemodynamically stable in the emergency department. Discussed all results with the patient and concern for possible occult coronary artery disease contributing to symptoms that are likely anginal. Case discussed with hospitalist for additional evaluation and management. Patient verbalized understanding of all this and was in agreement with plan. An order was placed for continuous cardiac monitoring. The monitor shows a rate of __72_ with _normal sinus__ rhythm. Impression & Plan Chest pain Discharge Plan Visit Data Chief Complaint: Chest Pain Stated Complaint: CHEST HEAVINESS,SOB,LIGHTHEADED ED Provider: Kelsey Kim Discharge Problem: Chest pain Patient Disposition: Admitted As Inpatient Discharge Instructions Interventions: ED Discharge Assessment Last Done: 04/18/21 22:47 Discharge Problem: Chest pain Qualifiers: Chest pain type: unspecified Qualified Code(s): R07.9 - Chest pain, unspecified
[2021-04-18 14:54] LABS: Basophils # (auto) 0.03 K/uL (0-0.2); Basophils % (auto) 0.3 %; Eosinophils # (auto) 0.35 K/uL (0-0.5); Eosinophils % (auto) 3.8 %; Hematocrit (blood only) 38.4 % (37-47); Immature Granulocytes # (auto) 0.03 K/uL (0.00-0.02); Immature Granulocytes % (auto) 0.3 %; Lymphocytes # (auto) 2.43 K/uL (1.2-3.4); Lymphocytes % (auto) 26.3 %; Mean Corpuscular Hemoglobin 31.5 pg (25-34); Mean Corpuscular Hgb Conc 33.9 g/dL (32-36); Mean Platelet Volume 10.8 fL (7.4-10.4); Monocytes % (auto) 7.6 %; Neutrophils # (auto) 5.69 K/uL (1.4-6.5); Neutrophils % (auto) 61.7 %; Platelet Count 243 K/uL (130-400); RDW Coefficient of Variation 13.5 % (11.5-14.5); RDW Standard Deviation 46.3 fL (36.4-46.3); Red Blood Count 4.13 M/uL (4.2-5.4); White Blood Count 9.23 K/uL (4.8-10.8)
[2021-04-18] MEDS: SODIUM CHLORIDE 0.9% 1000ML 1,000 ML IV SCH (14:56)
[2021-04-18 15:13] LABS: Alanine Aminotransferase 35 U/L (12-78); Albumin Level 3.6 gm/dl (3.4-5.0); Aspartate Aminotransferase 15 U/L (15-37); BUN Creatinine Ratio 21.1 (10-20); Blood Urea Nitrogen 15 mg/dl (7-18); Calcium 8.9 mg/dl (8.5-10.1); Carbon Dioxide 24 mmol/L (21-32); Chloride 108 mmol/L (98-107); Creatinine Clr Calc Pharmacy 67.6 ml/min; Est GFR (African American) 102.2 ml/min; Est GFR (Non-African American) 88.1 ml/min; Glucose 86 mg/dl (70-99); Lipase 98 U/L (73-393); Magnesium 1.9 mg/dl (1.8-2.4); Potassium 3.8 mmol/L (3.5-5.1); Sodium 142 mmol/L (136-145)
[2021-04-18 15:18] LABS: Albumin Globulin Ratio 1.1 (0.9-2); Alkaline Phosphatase 96 U/L (45-117); Bilirubin,Total 0.3 mg/dl (0.2-1); Globulin 3.3 gm/dl (2.5-4.0); NT Pro B Type Natriuretic Pept 36 pg/ml (0-900); Total Protein 6.9 gm/dl (6.4-8.2); Troponin I < 0.015 ng/ml (0-0.045)
[2021-04-18] MEDS ORDERED: METOPROLOL TARTRATE 1 MG/ML VIAL IV STA (16:34)
[2021-04-18] MEDS ORDERED: fentaNYL citrate 100 MCG/2 ML VIAL IV PRN (16:34)
[2021-04-18] MEDS ORDERED: OPTIRAY 320 125ml IV ONE (17:15)
--- NOTE | 2021-04-18 17:30 | CT Scan Report ---
CT angio chest dissec wo/w con CLINICAL HISTORY: chest pain into back TECHNIQUE: Multidetector row helical CT of the chest was performed before and after injection of IV c ontrast. Coronal and sagittal reformations were obtained. Automated dose lowering techniques and/or a djustment according to patient size were utilized for this exam. Comparison: None available at the time of this dictation. FINDINGS: Lungs and pleura: Bilateral peripheral scarring is seen. Heart and pericardium: Heart size is normal. No pericardial effusion. Vessels: No aortic dissection is seen. Mediastinum and armando: Unremarkable. Chest wall and lower neck: Unremarkable. Abdomen: For findings below the diaphragm, please refer to CT of the abdomen dated the same. Bones: Degenerative changes in the thoracic spine. IMPRESSION: 1. No evidence of acute aortic injury. No pulmonary embolism or other acute abnormality. 2. Scattered scarring changes in the bilateral lungs. ACT 112: Negative or not required by law. Electronically signed by: Russel Antunez M.D. 04/18/2021 5:29 PM
--- NOTE | 2021-04-18 17:35 | CT Scan Report ---
CT angio abdomen pelvis w con CLINICAL HISTORY: chest pain into back TECHNIQUE: Multidetector row helical CT of the abdomen, pelvis and bilateral lower extremities down t hrough the feet was performed, following intravenous administration of 140 cc of Omnipaque-350. No or al contrast was administered. Coronal and sagittal reformations were obtained. MIP and 3D volume rend ered reconstructions were obtained. Comparison: None available at the time of this dictation. FINDINGS: Lower chest: For findings above the diaphragm, please see CT chest performed same day. Liver: Hepatic steatosis is noted. Gallbladder and biliary tree: Patient is status post cholecystectomy. Physiologic prominence of the b iliary ducts is noted. Pancreas: Unremarkable, no focal lesions. Spleen: Unremarkable. Adrenals: Unremarkable. Kidneys and ureters: Unremarkable. Bladder: Limited evaluation due to underdistention. Reproductive organs: Unremarkable. Bowel: A hiatal hernia is seen. The appendix is unremarkable. Lymph nodes Retroperitoneal: Unremarkable. Mesenteric: Unremarkable. Pelvic: Unremarkable. Peritoneum: Normal Abdominal wall: Unremarkable. Bones: Degenerative changes in the visualized spine. CT angiogram: The abdominal aortic contours appear intact without evidence of aneurysmal dilatation a nd/or dissection. There is evidence of scattered atherosclerotic calcifications of the abdominal aor ta and its major branches noted. The origins of the celiac axis, superior mesenteric, inferior mesenteric and bilateral renal arteries are patent. IMPRESSION: 1. No evidence of hemodynamically significant stenosis, extravasation or dissection. 2. No acute intra-abdominal abnormality. 3. Hepatic steatosis. ACT 112: Negative or not required by law. Electronically signed by: Russel Antunez M.D. 04/18/2021 5:34 PM
[2021-04-18] MEDS ORDERED: ASPIRIN CHEW 324 MG PO STA (17:42)
[2021-04-18] MEDS ORDERED: FAMOTIDINE 20MG/5ML IV PUSH IV STA (17:42)
--- NOTE | 2021-04-18 18:50 | History & Physical Report ---
Date of Service April 18, 2021 Assessment & Plan (1) Chest pain: Plan: Chest pain Patient with chest pain on exertion highly suspicious for exertional angina. -CTA C: No evidence of acute aortic injury. No pulmonary embolism or other acute abnormality. Scattered scarring changes in the bilateral lungs. -CT-Ab: No evidence of hemodynamically significant stenosis, extravasation or dissection. No acute intra-abdominal abnormality. Hepatic steatosis. Covid pending at time of admission Pain improving with nitro paste 1 inch, continue Troponin negative in ER Creatinine less than 1, at baseline Hemoglobin 13 EKG: Normal sinus rhythm, no acute ST segment deviations. QTc 435, MI 192 Trend troponin Admit to medical telemetry for observation (2) H/O gastroesophageal reflux (GERD): Plan: GERD Convert omeprazole to Protonix 20 mg p.o. daily (3) COPD (chronic obstructive pulmonary disease): Plan: Continue fluticasone/centimeter all 1 inhalation twice daily, or formulary equivalent DuoNeb as needed Plan: DVT prophylaxis: Heparin Diet: Heart healthy Disposition: Medical telemetry CODE STATUS: DNR/DNI, discussed with patient History of Present Illness Chief Complaint: Chest pain Primary Care Provider: Juan Trotter MD Dominik is a 65yo F who presents iwth a heaviness in her chest intermittently for the past few days. Hx of COPD and thought it might have been a small flare. Pain goes straight through to her back and is associated with shortness of breath. At buddhism today feeling got very heavy in the chest and by the time she got out and went to [facility] she 'just didn't feel right, and kind of lightheaded and dizzy with really heavy pressure in my ches. Not sharp, just heavy.' Had a cardiac cath many years ago which she believes was normal 'a long time ago, I dont remember how long.' Heaviness starting to return, no shortness of breath troponin negative on arrival FHx: Silent heart attack in her mother who required stents ~65yo. father had stents. Uncle at age 59yo cardiac arrest. Medical History: Reviewed Medications: Reviewed Surgical History: Reviewed Allergies: Reviewed Social History: Former smoker, 1-2ppd x30 years and quit in 15-20 years. No recreational drugs, no med marijuana, no ETOH. Code Status: Sister Surekha. DNR/DNI. Allergies Allergy/AdvReac Type Severity Reaction Status Date / Time Aminoglycosides Allergy Mild EYE BECAME Verified 04/18/21 14:25 RED,SWOLLEN WITH OPTH IDA gentamicin Allergy Mild EYE BECAME Verified 04/18/21 14:25 RED,SWOLLEN WITH OPTH IDA Home Medications Medication Instructions Recorded Confirmed Type fluticasone 113mcg-salmeterol 1 inh INHALATION BID 07/16/20 04/18/21 History 14mcg/actuation breath act,powder sensor (AirDuo Digihaler) omeprazole 20 mg capsule,delayed 20 mg PO DAILY 07/16/20 04/18/21 History release Past Med/Surg History Medical History (Updated 04/18/21 @ 20:32 by Jd Tamayo MD) Conductive hearing loss of both ears COPD (chronic obstructive pulmonary disease) H/O gastroesophageal reflux (GERD) Sensorineural hearing loss of both ears Surgical History History of cholecystectomy History of hysterectomy History of lithotripsy History of repair of rotator cuff Family History Father Cancer Hearing loss Hypertension Heart disease Mother Hypertension Heart disease Sister Asthma Other No family history of allergies No family history of bleeding disorder Denies family history of Stroke Social History Smoking Status: Never smoker Tobacco Type: Cigarettes packs per day: 1; Cigarettes Per Day: x 25-30 years, quit in 1981; Hx Alcohol Use: No Hx Substance Use: No Preferred Language: Albanian Communication Ability: Effective marital status: / Current Living Situation: Spouse current occupational status: retired How many Children do You have: 2 Feels Safe at Home: Yes Review of Systems Review of Systems: All systems reviewed & are unremarkable except as noted in HPI & below Physical Exam Physical Exam: General: A&Ox3. NAD. Cooperative. HEENT: Atraumatic, normocephalic. Visual acuity grossly intact. Hearing grossl y intact. Pupils equal and reactive to light. Pulm: CTAB A&P. -wheezes, -rales, -rhonchi. Symmetrical chest rise. No increase work of breathing. No respiratory distress. Cardiac: RRR, -mrg. Radial pulses intact and symmetrical. Abdominal: Nontender, nondistended, soft. BS present. Extremities: Warm, dry. Moving all extremities equally. PT pulse intact. Sensation to soft touch and temperature intact in hands and feet bilaterally without asymmetry. Physician Practice Consultant strength, ankle dorsiflexion/plantar flexion 5/5 without asymmetry. Results & Data Results [facility] ([facility] Vital Signs (Past 12 Hours) Vital Signs Temp Pulse Pulse Resp BP BP Pulse Ox 04/18/21 17:00 65 16 133/64 97 04/18/21 16:31 96 04/18/21 16:00 69 17 04/18/21 15:43 71 16 154/85 H 97 04/18/21 15:30 66 18 146/79 H 96 04/18/21 15:00 63 14 97 04/18/21 14:30 63 12 142/81 H 97 04/18/21 14:15 67 16 97 04/18/21 13:46 36.4 C L 83 18 195/94 H 96 PG Care Time/CCT Total # of Minutes Spent Total Time Spent with Patient: Total time spent is greater than 50% in coordination of care (as documented) at patient's floor/unit and/or counseling patient: Coding Level of Care Code INT OBSERVATION CARE 50M LVL 2 Diagnoses Chest pain R07.9 Chest pain type: unspecified H/O gastroesophageal reflux (GERD) Z87.19 COPD (chronic obstructive pulmonary disease) J44.9 (1) Chest pain Chest pain type: unspecified Qualified Code(s): R07.9 - Chest pain, unspecified
[2021-04-18] MEDS ORDERED: ACETAMINOPHEN 325 MG TAB PO PRN (23:06)
[2021-04-19] MEDS: HEPARIN SOD 5,000 UNIT/0.5 ML VIAL SQ SCH ×3 (00:51→21:02)
[2021-04-19 03:16] LABS: Basophils # (auto) 0.03 K/uL (0-0.2); Basophils % (auto) 0.4 %; Eosinophils # (auto) 0.27 K/uL (0-0.5); Eosinophils % (auto) 3.2 %; Hemoglobin 11.5 g/dL (12.0-16.0); Immature Granulocytes # (auto) 0.01 K/uL (0.00-0.02); Immature Granulocytes % (auto) 0.1 %; Lymphocytes # (auto) 1.95 K/uL (1.2-3.4); Lymphocytes % (auto) 22.8 %; Mean Corpuscular Hemoglobin 30.7 pg (25-34); Mean Corpuscular Hgb Conc 32.9 g/dL (32-36); Mean Corpuscular Volume 93.3 fL (80-100); Mean Platelet Volume 10.6 fL (7.4-10.4); Monocytes # (auto) 0.87 K/uL (0.11-0.59); Monocytes % (auto) 10.2 %; Neutrophils # (auto) 5.42 K/uL (1.4-6.5); Neutrophils % (auto) 63.3 %; Platelet Count 215 K/uL (130-400); RDW Coefficient of Variation 13.7 % (11.5-14.5); RDW Standard Deviation 46.9 fL (36.4-46.3); Red Blood Count 3.75 M/uL (4.2-5.4); White Blood Count 8.55 K/uL (4.8-10.8)
[2021-04-19 03:34] LABS: BUN Creatinine Ratio 21.5 (10-20); Blood Urea Nitrogen 15 mg/dl (7-18); Carbon Dioxide 26 mmol/L (21-32); Chloride 112 mmol/L (98-107); Creatinine Clr Calc Pharmacy 69.4 ml/min; Est GFR (African American) 104.4 ml/min; Est GFR (Non-African American) 90.1 ml/min; Glucose 99 mg/dl (70-99); Potassium 3.7 mmol/L (3.5-5.1); Sodium 142 mmol/L (136-145)
[2021-04-19 03:39] LABS: Troponin I < 0.015 ng/ml (0-0.045)
[2021-04-19] MEDS ORDERED: NITROGLYCERIN 2% OINTMENT 30GM TUBE EXT PRN (05:31)
[2021-04-19] MEDS: SODIUM CHLORIDE 0.9% 1000ML 1,000 ML IV SCH (06:59)
--- NOTE | 2021-04-19 10:00 | Cardiology Consultation ---
Date of Consultation April 19, 2021 Assessment & Plan (1) Chest pain: 1. Chest pain: I believe she meets criteria for angina. This seems to have been progressive over few weeks. She now symptoms with a very low workload. Her echocardiogram demonstrated normal LV function without notable wall motion abnormalities. She has not had elevation in her biomarkers suggestive of an acute coronary syndrome. However, I think her description of the symptoms is concerning enough that we should proceed with coronary angiography. She did have this procedure done many years ago by report. Perhaps for similar symptoms. I did describe the risks benefits and alternatives to the patient will plan on proceeding this afternoon. History of Present Illness Reason for Consultation: Chest pain Requesting Physician: Ky Attending Physician: Alex Rios MD History of Present Illness The patient is a 65-year-old woman without a known history of cardiac disease who has been experiencing symptoms of exertional chest discomfort for several weeks. The patient describes this as a pressure type sensation. She states that it feels like her heart is too big for her chest at times. There is some radiation to the back, left shoulder and neck. symptoms initially happen with fair amount of exertion, but have become progressively worse. Now even ambulating to the bathroom back will produce the symptoms. This symptom itself generally resolves with rest. She has not had symptoms spontaneously. Again, feels like she needs to take a deep breath during these episodes, but she does not appear to have significant dyspnea. Yesterday she began to have some s ymptoms while walking in the parking lot at a grocery store. Because of the persistent and significant symptom, she presented to the emergency room where she was administered nitroglycerin and narcotics. This produced relief. She states that several months ago she was an active individual. She was able to at ascend and descend a flight of stairs without difficulty. She claims to have COPD, but does not appear to be limited severely by breathing difficulty. She did not describe any sustained palpitations but has occasional flops. These are very fleeting irregularities in her heartbeat. No history of syncope. No orthopnea. Some swelling in the right lower extremity that is been evaluated with ultrasound. No DVT or venous abnormality was reported. Allergies Allergy/AdvReac Type Severity Reaction Status Date / Time Aminoglycosides Allergy Mild EYE BECAME Verified 04/18/21 14:25 RED,SWOLLEN WITH OPTH IDA gentamicin Allergy Mild EYE BECAME Verified 04/18/21 14:25 RED,SWOLLEN WITH OPTH DIA Home Medications Medication Instructions Recorded Confirmed Type fluticasone 113mcg-salmeterol 1 inh INHALATION BID 07/16/20 04/18/21 History 14mcg/actuation breath act,powder sensor (AirDuo Digihaler) omeprazole 20 mg capsule,delayed 20 mg PO DAILY 07/16/20 04/18/21 History release mupirocin 2 % topical ointment See Rx Instructions TOPICAL BID 04/19/21 Rx PRN #15 g Patient History Medical History (Updated 04/18/21 @ 20:32 by Jd Tamayo MD) Conductive hearing loss of both ears COPD (chronic obstructive pulmonary disease) H/O gastroesophageal reflux (GERD) Sensorineural hearing loss of both ears Surgical History History of cholecystectomy History of hysterectomy History of lithotripsy History of repair of rotator cuff Family History Father Cancer Hearing loss Hypertension Heart disease Mother Hypertension Heart disease Sister Asthma Other No family history of allergies No family history of bleeding disorder Denies family history of Stroke Social History Smoking Status: Former smoker Tobacco Type: Cigarettes packs per day: 1; Cigarettes Per Day: x 25-30 years, quit in 1981; Smoking End Date: 1999; Hx Alcohol Use: No Hx Substance Use: No Preferred Language: Danish Communication Ability: Effective Court Security Officer Required: No Beliefs That Will Affect Care: None marital status: / Current Living Situation: Family Current Living Situation Comment: Lives in a home with her son and daughter in law current occupational status: retired How many Children do You have: 2 Other Information That Helps Us Care for You: No Feels Safe at Home: Yes Safety Concerns: Feels Safe At This Time Assistive Devices: None Review of Systems Review of Systems: Per HPI. Physical Exam Physical Exam: She is alert and oriented x3. Mood affect appear normal. She answered all questions appropriately. HEENT: Sclerae are anicteric. Pupils are equal and reactive to light and accommodation. Extraocular movements were intact. Neuro: Cranial nerves intact Neck: Examination of the submandibular region did not reveal any significant lymphadenopathy. Carotids are palpable bilaterally and free of bruits on auscultation. There was no evidence of jugular venous distention. The thyroid was not enlarged. Lungs: Lungs are clear to auscultation bilaterally. There are no rales wheezes or rhonchi. She has normal respiratory effort without use of accessory muscles. There is normal pulmonary excursion. Cardiac: The rhythm was regular. S1 and S2 were normal. There are no murmurs on examination. The PMI was not markedly displaced on palpation. Abdomen: Soft, nontender. Extremities: Patient has bilateral radial pulses that are equal in intensity. There is no evidence cyanosis or clubbing. Mild right lower extremity edema. Skin: There are no rashes noted on examination today. Results & Data ([facility]) Vital Signs (Past 12 Hours) Vital Signs Temp Pulse Pulse Resp BP Pulse Ox 04/19/21 07:44 36.5 C 65 18 146/75 H 97 04/19/21 07:30 62 04/19/21 04:00 36.7 C 62 18 125/68 95 04/18/21 23:23 36.5 C 63 20 135/83 97 04/18/21 22:50 67 Laboratory Results Abnormal Lab Results 04/18/21 04/18/21 04/18/21 14:45 14:45 20:20 WBC 9.23 RBC 4.13 L Hgb 13.0 Hct 38.4 MCV 93.0 MCH 31.5 MCHC 33.9 RDW Std Deviation 46.3 RDW Coeff of Ashok 13.5 Plt Count 243 MPV 10.8 H Immature Gran % (Auto) 0.3 Neut % (Auto) 61.7 Lymph % (Auto) 26.3 Wells % (Auto) 7.6 Eos % (Auto) 3.8 Baso % (Auto) 0.3 Neut # (Auto) 5.69 Lymph # (Auto) 2.43 Wells # (Auto) 0.70 H Eos # (Auto) 0.35 Baso # (Auto) 0.03 Immature Gran # (Auto) 0.03 H Sodium 142 Potassium 3.8 Chloride 108 H Carbon Dioxide 24 Anion Gap 10.0 BUN 15 Creatinine 0.71 Est Cr Clr Drug Dosing 67.6 Est GFR ( Amer) 102.2 Est GFR (Non-Af Amer) 88.1 BUN/Creatinine Ratio 21.1 H Glucose 86 Calcium 8.9 Magnesium 1.9 Total Bilirubin 0.3 AST 15 ALT 35 Alkaline Phosphatase 96 Troponin I < 0.015 NT-Pro-B Natriuret Pep 36 Total Protein 6.9 Albumin 3.6 Globulin 3.3 Albumin/Globulin Ratio 1.1 Lipase 98 COVID-19 Eval Order Covid19 at [facility] SARS-CoV-2 (PCR) 04/18/21 04/18/21 04/19/21 20:20 23:25 03:09 WBC RBC Hgb Hct MCV MCH MCHC RDW Std Deviation RDW Coeff of Ashok Plt Count MPV Immature Gran % (Auto) Neut % (Auto) Lymph % (Auto) Wells % (Auto) Eos % (Auto) Baso % (Auto) Neut # (Auto) Lymph # (Auto) Wells # (Auto) Eos # (Auto) Baso # (Auto) Immature Gran # (Auto) Sodium Potassium Chloride Carbon Dioxide Anion Gap BUN Creatinine Est Cr Clr Drug Dosing Est GFR ( Amer) Est GFR (Non-Af Amer) BUN/Creatinine Ratio Glucose Calcium Magnesium Total Bilirubin AST ALT Alkaline Phosphatase Troponin I < 0.015 Cancelled NT-Pro-B Natriuret Pep Total Protein Albumin Globulin Albumin/Globulin Ratio Lipase COVID-19 Eval Order SARS-CoV-2 (PCR) NEGATIVE 04/19/21 04/19/21 03:09 03:09 WBC 8.55 RBC 3.75 L Hgb 11.5 L Hct 35.0 L MCV 93.3 MCH 30.7 MCHC 32.9 RDW Std Deviation 46.9 H RDW Coeff of Ashok 13.7 Plt Count 215 MPV 10.6 H Immature Gran % (Auto) 0.1 Neut % (Auto) 63.3 Lymph % (Auto) 22.8 Wells % (Auto) 10.2 Eos % (Auto) 3.2 Baso % (Auto) 0.4 Neut # (Auto) 5.42 Lymph # (Auto) 1.95 Wells # (Auto) 0.87 H Eos # (Auto) 0.27 Baso # (Auto) 0.03 Immature Gran # (Auto) 0.01 Sodium 142 Potassium 3.7 Chloride 112 H Carbon Dioxide 26 Anion Gap 4.0 BUN 15 Creatinine 0.69 Est Cr Clr Drug Dosing 69.4 Est GFR ( Amer) 104.4 Est GFR (Non-Af Amer) 90.1 BUN/Creatinine Ratio 21.5 H Glucose 99 Calcium 8.0 L Magnesium Total Bilirubin AST ALT Alkaline Phosphatase Troponin I < 0.015 NT-Pro-B Natriuret Pep Total Protein Albumin Globulin Albumin/Globulin Ratio Lipase COVID-19 Eval Order SARS-CoV-2 (PCR) Diagnostic Findings Chest and abdomen CT demonstrated some hepatic steatosis, but no other acute findings. No pulmonary embolus or aortic pathology. ECG Additional Comments: EKG obtained the time admission was normal sinus rhythm. Essentially normal. PG Care Time/CCT Total # of Minutes Spent Total Time Spent with Patient: Total time spent is greater than 50% in coordination of care (as documented) at patient's floor/unit and/or counseling patient: Coding Level of Care Code 81222 Office/OBS Consult Lvl 4 Diagnoses Chest pain R07.9 Chest pain type: unspecified (1) Chest pain Chest pain type: unspecified Qualified Code(s): R07.9 - Chest pain, unspecified
--- NOTE | 2021-04-19 10:01 | Pre Anesthesia Assessment ---
Date of Service April 19, 2021 Pre Sedation Assessment Vital Signs Temp Pulse Pulse Resp BP BP Pulse Ox 04/19/21 07:44 36.5 C 65 18 146/75 H 97 04/19/21 07:30 62 04/19/21 04:00 36.7 C 62 18 125/68 95 04/18/21 23:23 36.5 C 63 20 135/83 97 04/18/21 22:50 67 04/18/21 20:19 64 16 144/81 H 96 04/18/21 17:00 65 16 133/64 97 04/18/21 16:31 96 04/18/21 16:00 69 17 04/18/21 15:43 71 16 154/85 H 97 04/18/21 15:30 66 18 146/79 H 96 04/18/21 15:00 63 14 97 04/18/21 14:30 63 12 142/81 H 97 04/18/21 14:15 67 16 97 04/18/21 13:46 36.4 C L 83 18 195/94 H 96 Cardiovascular + regular rate and + regular rhythm Respiratory + respiratory effort normal Pre-Sedation Airway Assessment Smoking Status: Former smoker Hx Sleep Apnea: No Hx Difficult Intubation: No Short, Thick Neck: No Thyromental Distance: > or= 3.5 Finger Breadths Oral Cavity: + WNL Mallampati Class: III ASA: ASA3 Procedure Planning Contraindications for Sedation: none Current Medications Reviewed: Yes Notes The planned sedation has been discussed with the patient. Informed Consent was obtained. I have identified the patient, determined the appropriateness of shaw tion and have assessed the patient immediately prior to the procedure. All medicine(s) and interventions are by my order.
--- NOTE | 2021-04-19 10:55 | XCELERA ---
[id number]
--- NOTE | 2021-04-19 11:03 | Electrocardiogram Report ---
Test Reason : Blood Pressure : / mmHG Vent. Rate : 069 BPM Atrial Rate : 069 BPM P-R Int : 192 ms QRS Dur : 072 ms QT Int : 406 ms P-R-T Axes : 037 -23 -04 degrees QTc Int : 435 ms Poor data quality, interpretation may be adversely affected Normal sinus rhythm Possible Left atrial enlargement Left ventricular hypertrophy Abnormal ECG Confirmed by Mich Rodriguez ([id number]) on 04/19/2021 11:02:51 AM Referred By: REFERRED SELF Confirmed By:Brad Rodriguez
--- NOTE | 2021-04-19 11:46 | Electrocardiogram Report ---
Test Reason : Blood Pressure : / mmHG Vent. Rate : 072 BPM Atrial Rate : 072 BPM P-R Int : 196 ms QRS Dur : 082 ms QT Int : 436 ms P-R-T Axes : 054 -10 032 degrees QTc Int : 477 ms Normal sinus rhythm Nonspecific ST abnormality Abnormal ECG When compared with ECG of 18-APR-2021 13:57, (unconfirmed) Nonspecific T wave abnormality has replaced inverted T waves in Inferior leads Confirmed by Mich Rodriguez ([id number]) on 04/19/2021 11:46:12 AM Referred By: REFERRED SELF Confirmed By:Brad Rodriguez
[2021-04-19] MEDS: PANTOprazole 40 MG TAB PO SCH (12:34)
--- NOTE | 2021-04-19 14:25 | Pre Anesthesia Assessment ---
Date of Service April 19, 2021 Pre Sedation Assessment Vital Signs Temp Pulse Pulse Resp BP BP Pulse Ox 04/19/21 11:15 36.6 C 65 16 135/72 96 04/19/21 07:44 36.5 C 65 18 146/75 H 97 04/19/21 07:30 62 04/19/21 04:00 36.7 C 62 18 125/68 95 04/18/21 23:23 36.5 C 63 20 135/83 97 04/18/21 22:50 67 04/18/21 20:19 64 16 144/81 H 96 04/18/21 17:00 65 16 133/64 97 04/18/21 16:31 96 04/18/21 16:00 69 17 04/18/21 15:43 71 16 154/85 H 97 04/18/21 15:30 66 18 146/79 H 96 04/18/21 15:00 63 14 97 04/18/21 14:30 63 12 142/81 H 97 Cardiovascular + regular rate and + regular rhythm Respiratory + respiratory effort normal Pre-Sedation Airway Assessment Smoking Status: Former smoker Hx Sleep Apnea: No Hx Difficult Intubation: No Short, Thick Neck: No Thyromental Distance: > or= 3.5 Finger Breadths Oral Cavity: + WNL Mallampati Class: III ASA: ASA2 NPO Status Date of Last Intake of Fluids: 04/18/21 Time of Last Intake of Fluids: 20:00 Date of Last Intake of Solid Food: 04/18/21 Time of Last Intake of Solid Foods: 20:00 Procedure Planning Contraindications for Sedation: none Current Medications Reviewed: Yes Notes The planned sedation has been discussed with the patient. Informed Consent was obtained. I have identified the patient, determined the appropriateness of sedation and have assessed the patient immediately prior to the procedure. All medicine(s) and interventions are by my order.
[2021-04-19] MEDS ORDERED: niCARdipine HCL INJ 2.5 MG/ML 10 ML AMP ONE (14:42)
[2021-04-19] MEDS ORDERED: HEPARIN (PORCINE) 1000 UNIT/ML 10 ML (CATH LAB USE ONLY) ONE (14:42)
[2021-04-19] MEDS ORDERED: fentaNYL citrate 100 MCG/2 ML VIAL ONE ×2 (14:43→16:39)
[2021-04-19] MEDS ORDERED: MIDAZOLAM HCL 1 MG/ML 2ML VIAL ONE ×2 (14:43→15:43)
[2021-04-19] MEDS ORDERED: NITROGLYCERIN/D5W 100MCG/ML 20ML SYR ONE (14:43)
[2021-04-19] MEDS ORDERED: CLOPIDOGREL BISULFATE 300 MG TAB ONE ×2 (16:36→20:29)
[2021-04-19] MEDS ORDERED: ONDANSETRON INJ 2 MG/ML 2 ML VIAL ONE (16:48)
--- NOTE | 2021-04-19 16:54 | Post Anesthesia Assessment ---
Date of Service April 19, 2021 Post Sedation Assessment Vital Signs Temp Pulse Pulse Resp BP Pulse Ox 04/19/21 11:15 97.9 F 65 16 135/72 96 04/19/21 07:44 97.7 F 65 18 146/75 H 97 04/19/21 07:30 62 04/19/21 04:00 98.1 F 62 18 125/68 95 04/18/21 23:23 97.7 F 63 20 135/83 97 04/18/21 22:50 67 04/18/21 20:19 64 16 144/81 H 96 04/18/21 17:00 65 16 133/64 97 Recovery Score Activity: Moves 4 extremities Respiration: Deep Breath/Cough Circulation: +/-20% PreAnes Value Consciousness: Fully Awake Oxygen Saturation: O2 needed for >90% Discharge Sedation Level of Care: Fast Track Phase II Post Sedation Plan On clinical assessment, the patient appears to have tolerated the sedation without complications. Patient is recovering as anticipated. Patient will continue to be monitored by nursing and may be discharged when sedation discharge criteria are met per below protocol. Upon Completions of procedure up to 15 minutes continue every 5 minute vital signs and the P.A.R. score; then discharge to a Phase I or Fast Track to Phase II per the following guidelines: * Discharge Patient to appropriate Phase II area if PAR is 8 or greater or return to pre- procedure baseline. The post - procedure orders will be as directed. * If PAR score is less than 8 or not return to pre-procedure baseline then patient will follow Phase I monitoring till PAR is reached for Phase II. The Phase I may be done in procedure room or may call to secure a Phase I area. * If naloxone or flumazenil are used for reversal, hold in Phase I for continued monitoring from when last reversal dose was given for a minimum of 60 minutes or longer pending the nurse and/or physician discretion of patient condition before discharge to Phase II. Please call the Sedation Physician to re-evaluate and complete post-note for discharge to Phase II area. Do NOT discharge from procedure sedation or Phase 1 until post- sedation evaluation note is complete by procedure /sedation MD Sedation Discharge Instructions to be given to the patient at discharge to home.
--- NOTE | 2021-04-19 17:03 | Cardiac Catheterization ---
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: Storeroom Clerk Cardiac Status Clinical evaluation leading to the procedure CAD Presenation: Unstable angina Anginal Classification: CCS III Heart Failure: No Cardiogenic Shock within 24 Hours: No Cardiac Arrest within 24 Hours: No Imaging Studies Past 6 Months: Yes Stress Studies Past 6 Months: No Diagnostic Physicians Name: Mich Lopez MD Status: Elective Closure Device Percutaneous Entry Location: Radial Closure Device: Radial Band Recommendations: PCI without planned CABG PCI Indication: Unstable Angina Intraprocedure Events Significant Disection: No Perforation: No Cardiac Cath Procedure Full Procedure Date April 19, 2021 Pre-Procedure Diagnosis Pre-Procedure Diagnosis: Acute Coronary Syndrome AUC Score AUC Score: 7 Post-Procedure Diagnosis Post-Procedure Diagnosis: Severe CAD and Successful PCI Procedure(s) Performed Procedure(s) Performed: Coronary Angiography and Drug Eluting Stent Online Merchandiser Mich Lopez MD Fermentation Engineer(s) Abdoulayeibler Estimated Blood Loss Estimated Blood Loss: 5 Medication(s) Medication(s): Clopidogrel, Fentanyl, Heparin, Lidocaine 1%, Nicardipine, Nitroglycerin and Versed Summary of Findings Indication: Suspected unstable angina Access: 6 Fr left radial artery Catheters: JR4 guide Findings: For full details of patient's coronary angiography please see cath report dictated by Dr. Rodriguez. Briefly, patient found to have severe mid RCA disease. Decision to proceed with PCI. -- PCI -- Antithrombotic therapy: Heparin, clopidogrel Procedure: RCA cannulated with JR4 guide BMW wire passed across lesion into distal vessel Mid RCA lesion predilated with 3.0 compliant balloon Dilated lesion stented with 3.5 x 18 mm Andres drug-eluting stent Stent post-dilated with 3.75 NC balloon IC vasodilators administered for spasm Post procedure FERNANDO 3 flow, stent well expanded with minimal residual stenosis and no apparent cardiac complications. Arterial Closure: TR band Summary: 1. Successful PCI of mid RCA with single drug-eluting stent (3.5 x 18 mm [place]; postdilated with 3.75 NC). Recommendations: To PCU for continued monitoring Loaded with clopidogrel 600 mg in Storeroom Clerk Continue dual-antiplatelet therapy for at least 6 months Continue statin, and ASCVD risk factor modification Consult cardiac Rehab Hemodynamics Rest Ao:: 157/64/103 Final Ao: 180/78/118 LV: -- Recommendations Recommendations: PCI without planned CABG Specimens Specimens: None Radiation Exposure (mGy) 967 Contrast (mls) 60 Fluids (cc crystalloids) Fluids (cc crystalloids): 150 Drains Drains: none Anesthesia moderate 5388-3533 Procedural Complication(s) None Disposition PCU I attest to the content of the Intraoperative Record and any orders documented therein. Any exceptions are noted below. [facility] Card Cath Procedure Codes Moderate Sedation Procedure 1: Sedation/Anesthesia: 28291 Mod Sedation by the same physician; Ea [id number] Minutes Stenting Procedure 1: Cardiovascular Stent Procedures: 77172 Perc transcatheter placement of intracoronary stent(s), with ang PG Care Time/CCT Total # of Minutes Spent Total Time Spent with Patient: Total time spent is greater than 50% in coordination of care (as documented) at patient's floor/unit and/or counseling patient:
[2021-04-19] MEDS ORDERED: CLOPIDOGREL BISULFATE 300 MG TAB PO STA ×2 (17:07→17:58)
--- NOTE | 2021-04-19 17:13 | Cardiac Catheterization ---
[facility] Data: Health Care Marketing Specialist Cardiac Status Clinical evaluation leading to the procedure CAD Presenation: Unstable angina Diagnostic Physicians Name: Mich Rodriguez MD Closure Device Recommendations: PCI without planned CABG Cardiac Cath Procedure Full Procedure Date April 19, 2021 Pre-Procedure Diagnosis Pre-Procedure Diagnosis: Acute Coronary Syndrome AUC Score AUC Score: 7 Post-Procedure Diagnosis Post-Procedure Diagnosis: Severe CAD and Successful PCI Procedure(s) Performed Procedure(s) Performed: Coronary Angiography and Drug Eluting Stent Skeins Yarn Examiner Mich Rodriguez MD Housekeeper Head(s) Deibler Estimated Blood Loss Estimated Blood Loss: 5 Medication(s) Medication(s): Clopidogrel, Fentanyl, Heparin, Lidocaine 1%, Nicardipine, Nitroglycerin and Versed Summary of Findings Procedure performed: Cardiac catheterization, left heart catheterization, selective coronary angiography Staff sales hunter: Mich Rodriguez MD Indication: The patient is a 65-year-old woman with a history of progressive exertional chest discomfort. Procedure in detail: The patient was informed of the risks benefits and alternatives to the intended procedure, he understood such and wished to proceed. He was taken to the cardiac catheterization suite in a fasting state. Conscious sedation was administered per protocol and the patient was monitored electrocardiographically throughout today's procedure. The right wrist area was prepped and draped in usual sterile fashion. This area was anesthetized using subcutaneous administration of a lidocaine solution. The leftradial artery was then accessed using Seldinger technique, and a arterial sheath was placed at this site over a guidewire. The sheath was used to facilitate passage of the cardiac catheter for coronary angiography and left heart catheterization. Coronary angiogram was then obtained in multiple orthogonal views prior to removal of the catheter. At the conclusion of the procedure the sheath was removed and hemostasis was achieved at the access site using manual pressure. The patient tolerated procedure well, there were no immediate complications. Equipment used: 5 Spanish tiger 4, 5 Spanish [facility] Findings: Coronary angiography Left main: Left main coronary artery was relatively short and affectively trifurcate into the left anterior descending a very large ramus intermedius branch in the left circumflex artery. There is no significant disease in the left main Left anterior descending: Left anterior descending was a large transapical vessel. It produced a medium size 1st diagonal branch with approximately 50% ostial stenosis. There was a diminutive 2nd diagonal branch. There is no other significant disease. Ramus intermedius: This was a large branching system without obstructive coronary disease Left circumflex: Left circumflex was a non dominant vessel. It produced a medium size 1st OM branch and a small 2nd OM branch. There were no obstructive lesions in this vessel. Right coronary artery: The right coronary artery was a large dominant vessel. There was an irregular 70% stenosis in the midportion of the right coronary artery. Impression: Right dominant coronary system Obstructive coronary disease involving the right coronary artery Normal left ventricular filling pressures No significant aortic stenosis Hemodynamics Rest Ao:: 122/63 mm of mercury Final Ao: 131/67 mm of mercury LV: 143/1 mm of mercury Left ventricular end-diastolic filling pressure of 10 mm of mercury Recommendations Recommendations: PCI without planned CABG Specimens Specimens: None Radiation Exposure (mGy) Six hundred sixty-three Contrast (mls) Thirty Fluids (cc crystalloids) Fluids (cc crystalloids): 150 Drains Drains: none Anesthesia moderate 9123-3731 Procedural Complication(s) None Disposition PCU I attest to the content of the Intraoperative Record and any orders documented therein. Any exceptions are noted below. [facility] Card Cath Procedure Codes Cardiac Catheterization Procedure 1: Cardiovascular Cath Procedures: 73378 Coronaries and LHC (+/-LV) Moderate Sedation Procedure 1: Sedation/Anesthesia: 26220 Mod Sedation by the same physician;Init15 Min Child Age 5 & Up Procedure 2: Sedation/Anesthesia: 02897 Mod Sedation by the same physician; Ea [id number] Minutes PG Care Time/CCT Total # of Minutes Spent Total Time Spent with Patient: Total time spent is greater than 50% in coordination of care (as documented) at patient's floor/unit and/or counseling patient:
[2021-04-19] MEDS ORDERED: SODIUM CHLORIDE 0.9% 1000ML 1,000 ML IV SCH (17:15)
--- NOTE | 2021-04-19 17:57 | Hospitalist Progress Note ---
Date of Service April 19, 2021 Assessment & Plan (1) Chest pain: Plan: Chest pain Patient with chest pain on exertion highly suspicious for exertional angina. CT angiography of the chest abdomen pelvis shows no evidence of aortic dissection pulmonary embolism or other issues within her abdomen. Serial troponins were unremarkable. Pain she is seen by cardiology underwent left heart catheterization with drug- eluting stent deployed to the right coronary artery. Patient returned to the hospital turner without incident pt did have both wrist accesses and has T band on left wrist (2) H/O gastroesophageal reflux (GERD): Plan: GERD Convert omeprazole to Protonix 20 mg p.o. daily (3) COPD (chronic obstructive pulmonary disease): Plan: Continue fluticasone/centimeter all 1 inhalation twice daily, or formulary equivalent DuoNeb as needed Plan: DVT prophylaxis: Heparin Diet: Heart healthy Disposition: Medical telemetry CODE STATUS: DNR/DNI, discussed with patient Admission and Anticipated Discharge Date Admission Date: April 18, 2021 Subjective pt was seen by [facility] this am and decision to take to cardiac systems testing laboratory technician, eventual RCA JASVIR applied, returned to floor Review of Systems Review of Systems: Mild distress and fatigue no headache, no visual changes no speech or swallowing issues chest pain on exertion no shortness of breath, cough or wheezes no abdominal pain, nausea or vomiting, diarrhea or constipation no dysuria, hematuria or frequency no focal joint pain or swelling no back pain, CVA tenderness or radicular pain no bruising, bleeding or rashes no focal signs of weakness or numbness or altered sensation no complaints of anxiety or depression.. Physical Exam Physical Exam: The patient appeared well nourished and normally developed. Vital signs as documented. Head exam is normocephalic atraumatic Neck is without JVD, thyromegaly, or carotid bruits. Lungs are clear to auscultation, no focal loss of breath sounds Cardiac exam, Rhythm is regular.. No murmurs, rubs or gallops. Abdominal exam reveals normal bowel sounds, soft non tender, no masses Extremities are nonedematous and both pedal pulses are present Neurologic exam is alert and oriented, no focal loss of strength or sensation Skin is without bruises or rashes Psychologically is without concerns for anxiety or depression Results & Data Results & Data ([facility]) Vital Signs (Past 12 Hours) Vital Signs Temp Pulse Pulse Resp BP Pulse Ox 04/19/21 11:15 97.9 F 65 16 135/72 96 04/19/21 07:44 97.7 F 65 18 146/75 H 97 04/19/21 07:30 62 PG Care Time/CCT Total # of Minutes Spent Total Time Spent with Patient: Total time spent is greater than 50% in coordination of care (as documented) at patient's floor/unit and/or counseling patient: Coding Level of Care Code 09825 Subseq Hosp Care Lvl 2 Diagnoses Chest pain R07.9 Chest pain type: unspecified H/O gastroesophageal reflux (GERD) Z87.19 COPD (chronic obstructive pulmonary disease) J44.9 (1) Chest pain Chest pain type: unspecified Qualified Code(s): R07.9 - Chest pain, unspecified
[2021-04-19] MEDS: FLUTICASONE PO SCH (21:02)
[2021-04-19] MEDS: SALMETEROL PO SCH (21:02)
[2021-04-20] MEDS: PANTOprazole 40 MG TAB PO SCH (08:51)
[2021-04-20] MEDS: HEPARIN SOD 5,000 UNIT/0.5 ML VIAL SQ SCH (08:52)
[2021-04-20] MEDS: SALMETEROL PO SCH (08:53)
[2021-04-20] MEDS: FLUTICASONE PO SCH (08:53)
[2021-04-20] MEDS ORDERED: ASPIRIN 81 MG ECTAB PO SCH (09:00)
[2021-04-20] MEDS ORDERED: ATORVASTATIN 40 MG TAB PO SCH (09:00)
[2021-04-20] MEDS ORDERED: CLOPIDOGREL BISULFATE 75 MG TAB PO SCH (09:00)
--- NOTE | 2021-04-20 10:59 | Cardiology Progress Note ---
Date of Service April 20, 2021 Assessment & Plan (1) Chest pain: Plan: 1. Chest pain: He was discovered yesterday to have obstructive disease involving the right coronary artery. She underwent successful percutaneous intervention. The procedure was only complicated by a likely sedation reaction resulting in nausea and vomiting. Otherwise she is doing quite well. He will be interesting to see if her symptoms have resolved entirely she has been more active. At this point she will continue dual anti-platelet therapy and high- dose atorvastatin. No current indication for Joni inhibition or beta blockade. Admission and Anticipated Discharge Date Admission Date: April 19, 2021 Subjective This morning the patient claims to be feeling better. The nausea and vomiting that she suffered after her procedure yesterday. I have resolved. She was able eat breakfast this morning without incident. Minor discomfort at the access sites in the wrists. She has been ambulatory to the bathroom and did not experience her typical chest discomfort or lower extremity weakness. Review of Systems Review of Systems: Per HPI Physical Exam Physical Exam: She is alert and oriented x3. Mood affect appear normal. She answered all questions appropriately. HEENT: Sclerae are anicteric. Pupils are equal and reactive to light and accommodation. Extraocular movements were intact. Neuro: Cranial nerves intact Lungs: Lungs are clear to auscultation bilaterally. There are no rales wheezes or rhonchi. She has normal respiratory effort without use of accessory muscles. There is normal pulmonary excursion. Cardiac: The rhythm was regular. S1 and S2 were normal. There are no murmurs on examination. The PMI was not markedly displaced on palpation. Extremities: Right radial access site with only minor ecchymosis. Good perfusion of the right hand. Left radial access site also with good perfusion. Skin: There are no rashes noted on examination today. Results & Data ([facility]) Vital Signs (Past 12 Hours) Vital Signs Temp Pulse Pulse Resp BP Pulse Ox 04/20/21 07:53 37.0 C 81 18 119/76 95 04/20/21 07:43 71 04/20/21 04:00 37.3 C 83 16 130/75 95 04/20/21 00:00 36.8 C 70 69 16 131/74 95 Laboratory Results Abnormal Lab Results 04/19/21 04/19/21 03:09 16:37 Activ Coag Time Kaolin 257 H Hepatitis C Ab Screen Neg PG Care Time/CCT Total # of Minutes Spent Total Time Spent with Patient: Total time spent is greater than 50% in coordination of care (as documented) at patient's floor/unit and/or counseling patient: Coding Level of Care Code 44991 Subseq Hosp Care Lvl 2 Diagnoses Chest pain R07.9 Chest pain type: unspecified (1) Chest pain Chest pain type: unspecified Qualified Code(s): R07.9 - Chest pain, unspecified
--- NOTE | 2021-04-20 19:30 | Discharge Summary ---
Date of Service April 20, 2021 Admission HPI Per Admitting Provider Dominik is a 65yo F who presents iwth a heaviness in her chest intermittently for the past few days. Hx of COPD and thought it might have been a small flare. Pain goes straight through to her back and is associated with shortness of breath. At [place] today feeling got very heavy in the chest and by the time she got out and went to [facility] she 'just didn't feel right, and kind of lightheaded and dizzy with really heavy pressure in my ches. Not sharp, just heavy.' Had a cardiac cath many years ago which she believes was normal 'a long time ago, I dont remember how long.' Heaviness starting to return, no shortness of breath troponin negative on arrival FHx: Silent heart attack in her mother who required stents ~65yo. father had stents. Uncle at age 59yo cardiac arrest. Medical History: Reviewed Medications: Reviewed Surgical History: Reviewed Allergies: Reviewed Social History: Former smoker, 1-2ppd x30 years and quit in 15-20 years. No recreational drugs, no med marijuana, no ETOH. Code Status: Sister Surekha. DNR/DNI. Principal Diagnosis unstable angina drug eluting stent in RCA Discharge Exam The patient appeared well Vital signs as documented. Lungs are clear to auscultation and appear unlabored Cardiac exam, Rhythm is regular.. No murmurs, rubs or gallops. Abdominal exam reveals normal bowel sounds, soft non tender, no masses Extremities are nonedematous and both pedal pulses are normal. Neurologic exam is alert and oriented, no focal loss of strength or sensation Skin is without bruises or rashes Psychologically is without concerns for anxiety or depression. Discharge Data Allergies Allergy/AdvReac Type Severity Reaction Status Date / Time Aminoglycosides Allergy Mild EYE BECAME Verified 04/18/21 14:25 RED,SWOLLEN WITH OPTH IDA gentamicin Allergy Mild EYE BECAME Verified 04/18/21 14:25 RED,SWOLLEN WITH OPTH IDA Consultations 04/18/21 18:09 ED Decision to Admit Stat 04/19/21 08:57 Consult Cardiology Routine 04/19/21 17:04 Consult Cardiac Rehabilitation Routine Procedures Performed Operation Date: 04/19/21 12:30 Actual Procedures p Cath, Left with Cors and Vent - rAslan Rodriguez MD s Drug Eluting Stent SGl Vessel - Arslan Lopez MD s Ultrasound Vascular Access - Arslan Lopez MD s Cineradiography w/Routine Exam - Arslan Lopez MD Ordered Studies 04/18/21 14:30 CT angio abdomen pelvis w con Stat CT angio chest dissec wo/w con Stat 04/19/21 09:23 CL Cath Imgs for PACS use only Stat Hospital Course (1) Chest pain: Chest pain Patient with chest pain on exertion highly suspicious for exertional angina. CT angiography of the chest abdomen pelvis shows no evidence of aortic dissection pulmonary embolism or other issues within her abdomen. Serial troponins were unremarkable. Pain she is seen by cardiology underwent left heart catheterization with drug- eluting stent deployed to the right coronary artery. Patient monitored overnight without any arrhythmia ambulated in unit without symptoms Patient was seen by cardiology prior to discharge and was deemed okay to go home (2) H/O gastroesophageal reflux (GERD): GERD Convert omeprazole to Protonix 20 mg p.o. daily (3) COPD (chronic obstructive pulmonary disease): Continue fluticasone/centimeter all 1 inhalation twice daily, or formulary equivalent DuoNeb as needed CODE STATUS: DNR/DNI, discussed with patient Total Time Total Time Spent Total Time Spent (In Minutes): It required less than 30 minutes to prepare this patient for discharge Discharge Plan Discharge Items Patient Disposition: Home - Self-Care Reason For Visit: chest pain, cardiac eval Discharge Diagnosis: unstable angina coronary artery stent Activity: Per Instructions section Non-emergency contact: Primary Care Provider and Heel Sprayer First Call non-emergency contact if: you have any medication questions and your symptoms worsen Follow-up/Referrals: Juan Trotter MD [Primary Care Provider] - Mami Monson PA-C [Outside Practitioners] - 04/23/21 1:00 pm (Please follow up with Mami Monson PA-C (Dr. Juan Trotter) on Monday04/23/21 at 1:00 pm. Please arrive to the office at 12:45 pm for your appointment. If you are unable to keep this appointment, please call the office to reschedule at [phone].) Diet: Heart Healthy Addtl Attending Provider Instructions: you did receive a coronary stent to your right coronary artery. It is very important to continue your aspirin and plavix treatment until instucted otherwise by your full decator operator. Continue to take atorvastatin as although you do not have significantly high cholesterol this medication will also help to stabilize any cholesterol issues in your coronary arteries, and continue to discuss this medication with your primary care and full decator operator. ACTIVITY RECOMMENDATIONS: Excess manipulation of the wrist should be avoided for the next 24-48 hours. * No lifting over 2 pounds (approximately a 1/2 gallon of milk) with the utilized arm for 24 hours. * No strenuous activity such as bowling or tennis for 3 days. * Keep the site of the procedure covered with a bandage for 24 hours. *You may shower the day after the procedure. Do not take a tub bath or submerge the puncture site in water for the next 3 days. *Do not operate any motorized equipment for 3 days. SPECIAL CARE INSTRUCTIONS: The site may be slightly bruised and sore following your procedure. Should any of the following occur, contact the Dr. who performed your procedure. 1. Redness/inflammation, swelling, chills, or fever, or colored drainage at procedure site within 3-7 days after your procedure. 2. Coldness, discoloration, ongoing numbness, severe pain, or swelling. Expect mild tingling of hand and tenderness at the puncture site for up to three days. If this persists beyond three days, or other symptoms develop, notify the Dr. who performed your procedure. BLEEDING: If the procedure site on your wrist begins to bleed, do not panic 1. Place 1 or 2 fingers firmly just slightly above the insertion site to stop the bleeding. You may be able to feel your pulse as you hold pressure. 2. Lift your finger after 5 minutes to see if the bleeding has stopped. 3. Once the bleeding has stopped, gently wipe the wrist area clean with a bandage. * If the bleeding from your wrist does not stop after 10 minutes, or if there is a large amount of bleeding or spurting, call 911 (do not drive yourself to the hospital). SKIN IRRITATION: * You may experience some redness and/or swelling in the area where radiation was administered. If any skin irritation occurs, please contact your family physician. FOLLOW UP VISIT: Keep any scheduled doctor appointments. Pending Studies at Discharge: No Stand-Alone Forms: My [employer], Smoking Cessation Medications and DC Order Prescriptions: New clopidogrel 75 mg Tablet 75 mg PO QAM Qty: 30 RF: 5 atorvastatin 40 mg Tablet 40 mg PO QAM Qty: 30 RF: 5 aspirin 81 mg Tablet,Delayed Release (Dr/Ec) 81 mg PO QAM Qty: 30 RF: 5 Continued mupirocin 2 % ointment See Rx Instructions topical BID PRN (Reason: crusting nasal irritation) Qty: 15 RF: 1 omeprazole 20 mg capsule,delayed release(DR/EC) 20 mg PO DAILY RF: 0 AirDuo Digihaler 113 mcg-14 mcg/actuation aero powdr breath act w/sensor 1 inh inhalation BID RF: 0 Discharge Orders: Discharge Order (Routine); Ordered 04/20/21 Ordered By: Alex Tate/Other Patient Handouts: Cholesterol Medicines, Coronary Angiography, Coronary Stents, DASH Plan Eat Heart Healthy Food, PCI Blood Thinners, Eating Heart-Healthy Foods Admission Data Admit Date/Time: 04/19/21 17:57 Attending Provider: Alex Rios Admit Provider: Jd Tamayo Primary Care Provider: Juan Trotter Other Providers: Jd Tamayo ; Arslan Rodriguez Other Interventions: Discharge Summary Assessment (RN) Last Done: 04/20/21 11:18 Coding Level of Care Code D/C DAY MANAGEMENT <30 MINS Diagnoses Chest pain R07.9 Chest pain type: unspecified H/O gastroesophageal reflux (GERD) Z87.19 COPD (chronic obstructive pulmonary disease) J44.9
== END 2021-04-20 12:22 | disposition home or self-care (01) | DRG 247 ==
LOC: ED 13:42 → 2N 13:42 → SUATTDRO 18:56 → 2N 22:47 → 2S 04-19 17:22

== ENCOUNTER 2023-01-10 14:51 | Observation (INO) ==
[2023-01-10] MEDS ORDERED: SODIUM CHLORIDE 0.9% 1000ML 1,000 ML IV ONE (15:12)
--- NOTE | 2023-01-10 15:13 | Emergency Department Note ---
Impression & Plan Exertional chest pain, COPD (chronic obstructive pulmonary disease), CAD (coronary artery disease), Dyspnea on minimal exertion ED Provider Note NAME: SALVADOR VARGAS AGE: 67 SEX: F ARRIVES VIA: Walk-In INFORMANT: Patient ED PROVIDER(S): Tom Rader MD CHIEF COMPLAINT: chest pain, Shortness of breath. PLAN: Disposition: Admit MEDICAL DECISION MAKING: The patient is a pleasant 67-year-old woman with a past medical history of CAD with history of RCA PCI in 2020, COPD, GERD, who presents to the emergency department for evaluation of ongoing chest pains/pressure in her anterior chest with associated shortness of breath which worsens with exertion that is re miniscent of her chest pain that led to her stent placement. She reports the symptoms been ongoing for the past 4 days or so and occurred when she was on vacation in [place] and eventually prompted their return yesterday. She denies any fevers, chills, cough or congestion. She reports she has been taking her inhalers but does not feel this has any improvement. On arrival the patient is in no acute distress, afebrile with blood pressure 170/90 and vital signs otherwise stable. She appears clinically dry. Lungs with scant intermittent wheeze and are otherwise clear. EKG without overt acute ischemia. Chest x-ray negative for acute cardiopulmonary WBC, H/H and platelets within normal limits. Chemistry without metabolic acidosis. Electrolytes and LFTs unremarkable. Lipase is normal. Initial high-sensitivity troponin undetectable with delta 3-hour high- sensitivity troponin 3.1, within normal limits. CT of the chest was performed was negative for PE. Note is made of emphysema with bronchitis and fibrotic changes. However, upon re-evaluation following IV hydration, Solu-Medrol, guaifenesin and DuoNeb the patient denied any significant change in even felt her pain had briefly worsened before calming again. Given the persistence of her symptoms which are reminiscent of her prior RCA stenosis leading to stent placement we did agree to proceed with admission for further evaluation. Full dose aspirin and nitroglycerin was administered. Case was discussed with Dr. Santana, [facility], who will evaluate the patient for admission. Triage Nursing notes reviewed and agree them. Prior/outside medical records reviewed Vital Signs: reviewed Differential diagnosis: Cardiac ischemia, aortic dissection, pulmonary embolism, pneumothorax, pneumonia, pericarditis, myocarditis, esophageal rupture, GERD, cholecystitis, pancreatitis, musculoskeletal, as well as other pathologies. ER treatment provided: See below. Diagnostics interpreted by me: ECG: Normal sinus rhythm, 69 bpm, no ectopy, LVH, no overt ST elevation or depression, QTc 441, QRS 74. Cardiac Monitoring: An order for continuous cardiac monitoring was placed and demonstrated normal sinus rhythm, 69 bpm, no ectopy. Laboratory studies: See below Imaging studies: See below Consultation(s): Case was discussed with Dr. Santana, [facility] hospitalist, who will evaluate the patient for admission. HPI: The patient is a pleasant 67-year-old woman with a past medical history of CAD with history of RCA PCI in 2020, COPD, GERD, who presents to the emergency department for evaluation of ongoing chest pains/pressure in her anterior chest with associated shortness of breath which worsens with exertion that is reminiscent of her chest pain that led to her stent placement. She reports the symptoms been ongoing for the past 4 days or so and occurred when she was on vacation in [place] and eventually prompted their return yesterday. She denies any fevers, chills, cough or congestion. She reports she has been taking her inhalers but does not feel this has any improvement. ROS: See above HPI for pertinent positives & negatives. A total of 10 systems reviewed and were otherwise negative. VITALS:See Below PHYSICAL EXAMINATION: GENERAL: Awake, alert, fatigued but well-appearing, in no distress HENT: Normocephalic, atraumatic. Oropharynx with dry mucous membranes and otherwise unremarkable. EYES: Normal conjunctiva. Sclera non-icteric. NECK: Supple. No nuchal rigidity. FROM. No JVD. RESPIRATORY: Scant intermittent wheeze and otherwise clear to auscultation. CARDIAC: Regular rate, normal rhythm. Extremities warm and well perfused. Pulses equal. ABDOMEN: Soft, non-distended. No tenderness to palpation. No rebound or guarding. No masses. RECTAL: Deferred. MUSCULOSKELETAL: Chest examination reveals no tenderness. The back is symmetri camille on inspection without obvious abnormality. There is no CVA tenderness to palpation. No joint edema. LOWER EXTREMITIES: Calves are equal size bilaterally and non-tender. No edema. No discoloration. NEURO: Normal sensorium. No sensory or motor deficits noted. SKIN: No rash or jaundice noted. Tom Rader MD Past Med/Surg History Medical History CAD (coronary artery disease) Conductive hearing loss of both ears COPD (chronic obstructive pulmonary disease) H/O gastroesophageal reflux (GERD) Sensorineural hearing loss of both ears Surgical History History of cholecystectomy History of hysterectomy History of lithotripsy History of repair of rotator cuff Stented coronary artery Family History Father Cancer Hearing loss Hypertension Heart disease Mother Hypertension Heart disease Sister Asthma Other No family history of allergies No family history of bleeding disorder Denies family history of Stroke Social History Smoking Status: Former smoker Tobacco Type: Cigarettes packs per day: 1; Cigarettes Per Day: x 25-30 years, quit in 1981; Do You Dip or Chew Tobacco: No; Hx Alcohol Use: No Hx Substance Use: No Preferred Language: Swiss Communication Ability: Effective Brick Washer Required: No Beliefs That Will Affect Care: None marital status: / Current Living Situation: Family Current Living Situation Comment: Lives in a home with her son and daughter in law current occupational status: retired How many Children do You have: 2 Feels Safe at Home: Yes Assistive Devices: Glasses Allergies Allergies Allergy/AdvReac Type Severity Reaction Status Date / Time Aminoglycosides Allergy Mild EYE BECAME Verified 03/29/22 13:34 RED,SWOLLEN WITH OPTH IDA gentamicin Allergy Mild EYE BECAME Verified 03/29/22 13:34 RED,SWOLLEN WITH OPTH IDA Home Meds Home Medications Medication Instructions Recorded Confirmed fluticasone 113mcg-salmeterol 1 inh inhalation BID 07/16/20 01/10/23 14mcg/actuation breath act,powder sensor (AirMinefoldo Digihaler) coenzyme Q10 100 mg capsule (Co 100 mg PO DAILY 09/17/21 01/10/23 Q-10) losartan 25 mg tablet 25 mg PO DAILY 09/17/21 01/10/23 pyridoxine (vitamin B6) 500 mg 500 mg PO DAILY 09/17/21 01/10/23 tablet cholecalciferol (vitamin D3) 25 25 mcg PO DAILY 03/29/22 01/10/23 mcg (1,000 unit) capsule (Vitamin D3) omeprazole 20 mg capsule,delayed 20 mg PO DAILY 03/29/22 01/10/23 release aspirin 81 mg tablet,delayed 81 mg PO QPM 01/10/23 01/10/23 release Results & Data (ED) Vital Signs Vital Signs - 24 hr 01/10/23 15:00 01/10/23 15:12 01/10/23 15:24 Temperature 36.8 C Temperature Source Temporal Artery Scan Pulse Rate 82 74 Pulse Rate [Right Brachial] Pulse Rhythm [Right Brachial] Pulse Strength [Right Brachial] Respiratory Rate 20 Respiratory Effort / Characteristics Non-Labored Spontaneous Non-Labored Spontaneous SOB on Exertion Respiratory Depth Normal Respiratory Pattern Blood Pressure 173/94 H Blood Pressure [Right Arm] Blood Pressure Mean 120 Blood Pressure Mean [Right Arm] Pulse Oximetry 96 Oxygen Delivery Method Room Air Room Air Sepsis Recent Fever Within 48 Hours No Sepsis New/Unexplained Change in Mental Status N/A Sepsis Action Taken by Nursing No Action Required 01/10/23 16:43 01/10/23 16:44 01/10/23 18:00 Temperature Temperature Source Pulse Rate Pulse Rate [Right Brachial] 71 68 Pulse Rhythm [Right Brachial] Regular Pulse Strength [Right Brachial] Normal Respiratory Rate 19 18 Respiratory Effort / Characteristics Non-Labored Spontaneous Respiratory Depth Normal Respiratory Pattern Regular Blood Pressure Blood Pressure [Right Arm] 148/106 H 124/79 Blood Pressure Mean Blood Pressure Mean [Right Arm] 120 94 Pulse Oximetry 100 100 98 Oxygen Delivery Method Room Air Room Air Room Air Sepsis Recent Fever Within 48 Hours Sepsis New/Unexplained Change in Mental Status Sepsis Action Taken by Nursing 01/10/23 19:00 01/10/23 20:01 01/10/23 20:55 Temperature Temperature Source Pulse Rate 72 72 Pulse Rate [Right Brachial] Pulse Rhythm [Right Brachial] Pulse Strength [Right Brachial] Respiratory Rate 16 16 Respiratory Effort / Characteristics Respiratory Depth Respiratory Pattern Blood Pressure 143/84 H 150/100 H Blood Pressure [Right Arm] 148/75 H Blood Pressure Mean 103 116 Blood Pressure Mean [Right Arm] 99 Pulse Oximetry 96 96 Oxygen Delivery Method Sepsis Recent Fever Within 48 Hours Sepsis New/Unexplained Change in Mental Status Sepsis Action Taken by Nursing Laboratory Data Attestation: I reviewed the patient's lab results. 01/10/23 15:22 01/10/23 15:22 Lab Results 01/10/23 01/10/23 01/10/23 Range/Units 15:22 15:22 15:22 WBC 8.88 (4.8-10.8) K/ul RBC 4.22 (4.20-5.40) M/uL Hgb 13.1 (12.0-16.0) g/dl Hct 38.8 (37.0-47.0) % MCV 91.9 (80.0-100.0) fL MCH 31.0 (25.0-34.0) pg MCHC 33.8 (32.0-36.0) g/dL RDW Std Deviation 44.6 (36.4-46.3) fL RDW Coeff of Ashok 13.3 (11.5-14.5) % Plt Count 262 (130-400) K/uL MPV 11.3 (9.4-12.4) fL Immature Gran % (Auto) 0.5 % Neut % (Auto) 61.1 % Lymph % (Auto) 26.2 % Grimes % (Auto) 7.9 % Eos % (Auto) 3.6 % Baso % (Auto) 0.7 % Neut # (Auto) 5.43 (1.40-6.50) K/uL Lymph # (Auto) 2.33 (1.2-3.4) K/uL Grimes # (Auto) 0.70 H (0.11-0.59) K/uL Eos # (Auto) 0.32 (0-0.50) K/uL Baso # (Auto) 0.06 (0-0.2) K/uL Immature Gran # (Auto) 0.04 (0.01-0.20) K/uL Sodium 139 (136-145) mmol/L Potassium 4.0 (3.5-5.1) mmol/L Chloride 109 H (98-107) mmol/L Carbon Dioxide 25 (21-32) mmol/L Anion Gap 5 (3-11) BUN 20 (6-23) mg/dl Creatinine 0.84 (0.6-1.2) mg/dl Est Cr Clr Drug Dosing 54.6 ml/min Est GFR ( Amer) 82.2 ml/min Est GFR (Non-Af Amer) 70.9 ml/min BUN/Creatinine Ratio 23.8 H (10-20) Glucose 84 (70-99(Fasting)) mg/dl Calcium 9.0 (8.6-10.3) mg/dl Phosphorus 2.8 (2.5-4.9) mg/dl Magnesium 1.9 (1.7-2.4) mg/dl Total Bilirubin 0.3 (0.2-1.0) mg/dl AST 18 (13-39) U/L ALT 20 (7-52) U/L Alkaline Phosphatase 88 (34-104) U/L Troponin I High Sens < 2.3 (0-14) pg/ml B-Natriuretic Peptide 11 (0-100) pg/ml Total Protein 6.9 (6.0-8.3) gm/dl Albumin 4.3 (3.4-5.0) gm/dl Globulin 2.6 (2.5-4.0) gm/dl Albumin/Globulin Ratio 1.7 (0.9-2) Lipase 14 (11-82) U/L 01/10/23 Range/Units 18:20 WBC (4.8-10.8) K/ul RBC (4.20-5.40) M/uL Hgb (12.0-16.0) g/dl Hct (37.0-47.0) % MCV (80.0-100.0) fL MCH (25.0-34.0) pg MCHC (32.0-36.0) g/dL RDW Std Deviation (36.4-46.3) fL RDW Coeff of Ashok (11.5-14.5) % Plt Count (130-400) K/uL MPV (9.4-12.4) fL Immature Gran % (Auto) % Neut % (Auto) % Lymph % (Auto) % Grimes % (Auto) % Eos % (Auto) % Baso % (Auto) % Neut # (Auto) (1.40-6.50) K/uL Lymph # (Auto) (1.2-3.4) K/uL Grimes # (Auto) (0.11-0.59) K/uL Eos # (Auto) (0-0.50) K/uL Baso # (Auto) (0-0.2) K/uL Immature Gran # (Auto) (0.01-0.20) K/uL Sodium (136-145) mmol/L Potassium (3.5-5.1) mmol/L Chloride (98-107) mmol/L Carbon Dioxide (21-32) mmol/L Anion Gap (3-11) BUN (6-23) mg/dl Creatinine (0.6-1.2) mg/dl Est Cr Clr Drug Dosing ml/min Est GFR ( Amer) ml/min Est GFR (Non-Af Amer) ml/min BUN/Creatinine Ratio (10-20) Glucose (70-99(Fasting)) mg/dl Calcium (8.6-10.3) mg/dl Phosphorus (2.5-4.9) mg/dl Magnesium (1.7-2.4) mg/dl Total Bilirubin (0.2-1.0) mg/dl AST (13-39) U/L ALT (7-52) U/L Alkaline Phosphatase (34-104) U/L Troponin I High Sens 3.1 (0-14) pg/ml B-Natriuretic Peptide (0-100) pg/ml Total Protein (6.0-8.3) gm/dl Albumin (3.4-5.0) gm/dl Globulin (2.5-4.0) gm/dl Albumin/Globulin Ratio (0.9-2) Lipase (11-82) U/L Administered Medications Discontinued Medications Albuterol (Albut/Ipratrop 3mg/0.5mg Neb 3 Ml Vial) 3 ml NEB NOW STA; Protocol Stop: 01/10/23 17:37 Last Admin: 01/10/23 18:22 Dose: 3 ml Documented By: SUZETTE Aspirin (Aspirin Chew 324 Mg) 324 mg PO NOW STA Stop: 01/10/23 20:18 Last Admin: 01/10/23 20:54 Dose: 324 mg Documented By: NELLY Dexamethasone Sodium Phosphate (DexamethasonePf 10 Mg/Ml Vial) 10 mg IV NOW ONE Stop: 01/10/23 17:37 Last Admin: 01/10/23 18:22 Dose: 10 mg Documented By: SUZETTE Guaifenesin (Guaifenesin 600 Mg Tabcr) 1,200 mg PO NOW STA Stop: 01/10/23 17:42 Last Admin: 07/25/23 18:22 Dose: 1,200 mg Documented By: SUZETTE Sodium Chloride (Nss 1000ml) 1,000 mls @ 999 mls/hr IV .Q1H1M ONE Stop: 01/10/23 16:12 Last Infusion: 01/10/23 19:11 Dose: 0 mls/hr Documented By: Admin: 01/10/23 15:15 Dose: 999 mls/hr Documented By: SUZETTE Ioversol (Ioversol 350 Mg 125ml Prefilled Syringe) 116 ml IV ONCE ONE Stop: 01/10/23 16:36 Last Admin: 01/10/23 16:37 Dose: 116 ml Documented By: ERICK Nitroglycerin (Nitroglycerin Sl 0.4 Mg/Tab Tab) 0.4 mg SL NOW STA Stop: 01/10/23 20:18 Last Admin: 01/10/23 20:55 Dose: 0.4 mg Documented By: NELLY Imaging Data Radiologist's Impression: Chest X-Ray 01/10/23 15:12 XR chest 1V portable CLINICAL HISTORY: Chest pain, nonspecific COMPARISON STUDY: Chest CT April 18, 2021. FINDINGS: Lung volumes are normal. No consolidation is identified. Mild reticul onodular interstitial thickening is unchanged. This is chronic. There is no pneumothorax or pleural effusion. Cardiac size is normal. Mediastinal contours are normal. There is no evidence for pulmonary edema. IMPRESSION: No acute cardiopulmonary findings. Chronic interstitial thickening. ACT 112: Negative or not required by law. Electronically signed by: Kiran Beavers M.D. 01/10/2023 3:45 PM Chest CTA 01/10/23 15:36 CT angio chest PE protocol CT DOSE: 677.47 mGy.cm HISTORY: 67 years-old Female with sob, r/o PE. Acute shortness of breath TECHNIQUE: Multiple CTA images of the chest were obtained after the intravenous administration of 116 ml Optiray. Coronal and sagittal MIPS were obtained from the axial data set and were submitted for review. All measurements were obtained according to NASCET criteria. A dose lowering technique was utilized adhering to the principles of ALARA. COMPARISON: 04/18/2021 FINDINGS: CTA: There is adequate opacification of the pulmonary arteries to the level of the subsegmental branches without convincing evidence of acute pulmonary embolism. Heart is normal in size. Moderate coronary artery calcifications. Atherosclerosis of the aorta without aneurysm. CT CHEST: Unremarkable thyroid. No lymphadenopathy. No pneumothorax, pleural effusion or overt pulmonary edema mild emphysema with biapical and dependent bibasilar subpleural blebs and fibrosis, slightly progressed. No suspicious pulmonary nodules or masses. Mild bronchial wall thickening. There are a few scattered low suspicion solid pulmonary nodules measuring up to 3 mm and are stable. No acute process of the imaged upper abdomen. Cholecystectomy. Tiny hiatal randolph ia. Left infraspinatus muscle atrophy suggestive of chronic tendon tear. IMPRESSION: 1. No pulmonary emboli identified. 2. Emphysema with bronchitis and mild fibrotic changes. 3. No lymphadenopathy. ACT 112: Negative or not required by law. The above report was generated using voice recognition software. It may contain grammatical, syntax or spelling errors. Electronically signed by: Prashanth Quinn M.D. 01/10/2023 5:05 PM Discharge Plan Visit Data Chief Complaint: Cardiac Assessment Stated Complaint: HEAVINESS IN CHEST; EDEMA ED Provider: Tom Rader Discharge Problem: Exertional chest pain, COPD (chronic obstructive pulmonary disease), CAD (coronary artery disease), Dyspnea on minimal exertion Forms Stand Alone Forms: [facility] [employer] Prescriptions Prescriptions: No Action omeprazole 20 mg capsule,delayed release(DR/EC) 20 mg PO DAILY cholecalciferol (vitamin D3) [Vitamin D3] 25 mcg (1,000 unit) capsule 25 mcg PO DAILY coenzyme Q10 [Co Q-10] 100 mg capsule 100 mg PO DAILY losartan 25 mg tablet 25 mg PO DAILY pyridoxine (vitamin B6) 500 mg tablet 500 mg PO DAILY AirDuo Digihaler 113 mcg-14 mcg/actuation aero powdr breath act w/sensor 1 inh inhalation BID aspirin 81 mg tablet,delayed release (DR/EC) 81 mg PO QPM Referrals Referrals: Aldo Lam DO [Primary Care Provider] -
--- NOTE | 2023-01-10 15:47 | XRay Report ---
XR chest 1V portable CLINICAL HISTORY: Chest pain, nonspecific COMPARISON STUDY: Chest CT April 18, 2021. FINDINGS: Lung volumes are normal. No consolidation is identified. Mild reticulonodular interstitial thickening is unchanged. This is chronic. There is no pneumothorax or pleural effusion. Cardiac size is normal. Mediastinal contours are normal. There is no evidence for pulmonary edema. IMPRESSION: No acute cardiopulmonary findings. Chronic interstitial thickening. ACT 112: Negative or not required by law. Electronically signed by: Kiran Beavers M.D. 01/10/2023 3:45 PM
[2023-01-10 15:52] LABS: Basophils # (auto) 0.06 K/uL (0-0.2); Basophils % (auto) 0.7 %; Eosinophils # (auto) 0.32 K/uL (0-0.50); Eosinophils % (auto) 3.6 %; Hematocrit (blood only) 38.8 % (37.0-47.0); Hemoglobin 13.1 g/dl (12.0-16.0); Immature Granulocytes # (auto) 0.04 K/uL (0.01-0.20); Immature Granulocytes % (auto) 0.5 %; Lymphocytes # (auto) 2.33 K/uL (1.2-3.4); Lymphocytes % (auto) 26.2 %; Mean Corpuscular Hgb Conc 33.8 g/dL (32.0-36.0); Mean Corpuscular Volume 91.9 fL (80.0-100.0); Mean Platelet Volume 11.3 fL (9.4-12.4); Monocytes % (auto) 7.9 %; Neutrophils # (auto) 5.43 K/uL (1.40-6.50); Neutrophils % (auto) 61.1 %; Platelet Count 262 K/uL (130-400); RDW Coefficient of Variation 13.3 % (11.5-14.5); RDW Standard Deviation 44.6 fL (36.4-46.3); Red Blood Count 4.22 M/uL (4.20-5.40); White Blood Count 8.88 K/ul (4.8-10.8)
[2023-01-10 16:14] LABS: Anion Gap 5 (3-11); Aspartate Aminotransferase 18 U/L (13-39); BUN Creatinine Ratio 23.8 (10-20); Bilirubin,Total 0.3 mg/dl (0.2-1.0); Blood Urea Nitrogen 20 mg/dl (6-23); Carbon Dioxide 25 mmol/L (21-32); Chloride 109 mmol/L (98-107); Creatinine Clr Calc Pharmacy 54.6 ml/min; Est GFR (African American) 82.2 ml/min; Est GFR (Non-African American) 70.9 ml/min; Glucose 84 mg/dl (70-99(Fasting)); Magnesium 1.9 mg/dl (1.7-2.4); Phosphorus 2.8 mg/dl (2.5-4.9); Sodium 139 mmol/L (136-145)
[2023-01-10 16:15] LABS: Alanine Aminotransferase 20 U/L (7-52); Albumin Globulin Ratio 1.7 (0.9-2); Albumin Level 4.3 gm/dl (3.4-5.0); Alkaline Phosphatase 88 U/L (34-104); Globulin 2.6 gm/dl (2.5-4.0); Lipase 14 U/L (11-82); Total Protein 6.9 gm/dl (6.0-8.3)
[2023-01-10 16:20] LABS: Troponin I High Sensitivity < 2.3 pg/ml (0-14)
[2023-01-10] MEDS ORDERED: IOVERSOL 350 MG 125mL Prefilled Syringe IV ONE (16:35)
--- NOTE | 2023-01-10 16:38 | Electrocardiogram Report ---
Test Reason : Blood Pressure : / mmHG Vent. Rate : 069 BPM Atrial Rate : 069 BPM P-R Int : 196 ms QRS Dur : 074 ms QT Int : 412 ms P-R-T Axes : 043 -21 018 degrees QTc Int : 441 ms Normal sinus rhythm Voltage criteria for left ventricular hypertrophy Possible Old Anterior infarct Abnormal ECG When compared with ECG of 19-APR-2021 05:50, Borderline Criteria for Anterior infarct is now Present Confirmed by Edis Roman ([id number]) on 01/10/2023 4:37:54 PM Referred By: Aldo Lam Confirmed By:Edis Roman
--- NOTE | 2023-01-10 17:06 | CT Scan Report ---
CT angio chest PE protocol CT DOSE: 677.47 mGy.cm HISTORY: 67 years-old Female with sob, r/o PE. Acute shortness of breath TECHNIQUE: Multiple CTA images of the chest were obtained after the intravenous administration of 116 ml Optiray. Coronal and sagittal MIPS were obtained from the axial data set and were submitted for review. All measurements were obtained according to NASCET criteria. A dose lowering technique was u tilized adhering to the principles of ALARA. COMPARISON: 04/18/2021 FINDINGS: CTA: There is adequate opacification of the pulmonary arteries to the level of the subsegmental branches w ithout convincing evidence of acute pulmonary embolism. Heart is normal in size. Moderate coronary ar bacilio calcifications. Atherosclerosis of the aorta without aneurysm. CT CHEST: Unremarkable thyroid. No lymphadenopathy. No pneumothorax, pleural effusion or overt pulmonary edema mild emphysema with biapical and dependent bibasilar subpleural blebs and fibrosis, slightly progress ed. No suspicious pulmonary nodules or masses. Mild bronchial wall thickening. There are a few scatte red low suspicion solid pulmonary nodules measuring up to 3 mm and are stable. No acute process of the imaged upper abdomen. Cholecystectomy. Tiny hiatal hernia. Left infraspinatus muscle atrophy suggestive of chronic tendon tear. IMPRESSION: 1. No pulmonary emboli identified. 2. Emphysema with bronchitis and mild fibrotic changes. 3. No lymphadenopathy. ACT 112: Negative or not required by law. The above report was generated using voice recognition software. It may contain grammatical, syntax o r spelling errors. Electronically signed by: Prashanth Quinn M.D. 01/10/2023 5:05 PM
[2023-01-10] MEDS ORDERED: ALBUT/IPRATROP 3MG/0.5MG NEB 3 ML VIAL NEB STA (17:36)
[2023-01-10] MEDS ORDERED: dexAMETHasone**PF** 10 MG/ML VIAL IV ONE (17:36)
[2023-01-10] MEDS ORDERED: guaiFENesin 600 MG TABCR PO STA (17:41)
[2023-01-10] MEDS ORDERED: NITROGLYCERIN SL 0.4 MG/TAB TAB SL STA (20:17)
[2023-01-10] MEDS ORDERED: ASPIRIN CHEW 324 MG PO STA (20:17)
[2023-01-10] MEDS ORDERED: MoRPHine SULFATE 2 MG/ML CARP IV STA (21:50)
--- NOTE | 2023-01-10 23:53 | History & Physical Report ---
Date of Service January 10, 2023 Assessment & Plan (1) Exertional chest pain: Plan: 67-year-old female presents with chest pain more on exertion for last 4 to 5 days. Chest pain Pain more on exertion History of CAD s/p in 2 RCA Initial troponin and if he is okay Nitro and aspirin did not help much Chest heaviness improved with morphine We will observe in med/telemetry N.p.o. Serial cardiac enzymes and echocardiogram and repeat EKG in a.m. Consult cardiology in a.m. History of CAD s/p stent to RCA On aspirin . Satin was stopped end of November because of bad cramps. Says if needed she wants to go on Lipitor as she thinks it was better than crestor. Hypertension On losartan COPD Former smoker Continue home inhalers DVT prophylaxis SCDs Disposition med/telemetry Full code (2) Stented coronary artery: History of Present Illness Chief Complaint: Chest pain Primary Care Provider: Aldo Lam DO 67-year-old female with past medical significant for CAD status post RCA stent in 2020, hyperlipidemia, COPD, hypertension, GERD,, former smoker presents with chest pain. Patient states chest pain going on for last 4 to 5 days. Feeling of heaviness in the chest. The pain is more with exertion and radiating to the back. Pain improves with rest. Denies any shortness of breath or nausea or dizziness. Patient recently was vacationing in [place] but has not cut back vacation because of swelling in the lower extremity and chest tightness. Swelling in the lower extremity resolved. Denies any headache. No runny nose or sore throat or cough. No dysphagia. No abdominal pain. Normal bowel and bladder movements. Nitro and aspirin did not resolve her chest heaviness in the ER. Morphine took most of her heaviness away. Hemodynamics are stable Allergies Allergy/AdvReac Type Severity Reaction Status Date / Time Aminoglycosides Allergy Mild EYE BECAME Verified 03/29/22 13:34 RED,SWOLLEN WITH OPTH IDA gentamicin Allergy Mild EYE BECAME Verified 03/29/22 13:34 RED,SWOLLEN WITH OPTH IDA Home Medications Medication Instructions Recorded Confirmed Type fluticasone 113mcg-salmeterol 1 inh inhalation BID 07/16/20 01/10/23 History 14mcg/actuation breath act,powder sensor ([place] Digihaler) coenzyme Q10 100 mg capsule (Co 100 mg PO DAILY 09/17/21 01/10/23 History Q-10) losartan 25 mg tablet 25 mg PO DAILY 09/17/21 01/10/23 History pyridoxine (vitamin B6) 500 mg 500 mg PO DAILY 09/17/21 01/10/23 History tablet cholecalciferol (vitamin D3) 25 25 mcg PO DAILY 03/29/22 01/10/23 History mcg (1,000 unit) capsule (Vitamin D3) omeprazole 20 mg capsule,delayed 20 mg PO DAILY 03/29/22 01/10/23 History release aspirin 81 mg tablet,delayed 81 mg PO QPM 01/10/23 01/10/23 History release Past Med/Surg History Medical History (Updated 01/11/23 @ 08:21 by Edis Roman MD) CAD (coronary artery disease) No remaining occlusive disease after RCA stent 2020 Conductive hearing loss of both ears COPD (chronic obstructive pulmonary disease) H/O gastroesophageal reflux (GERD) Sensorineural hearing loss of both ears Surgical History (Updated 01/11/23 @ 08:21 by Edis Roman MD) History of cholecystectomy History of hysterectomy History of lithotripsy History of repair of rotator cuff Family History Father Cancer Hearing loss Hypertension Heart disease Mother Hypertension Heart disease Sister Asthma Other No family history of allergies No family history of bleeding disorder Denies family history of Stroke Social History Smoking Status: Former smoker Tobacco Type: Cigarettes packs per day: 1; Cigarettes Per Day: x 25-30 years, quit in 1981; Do You Dip or Chew Tobacco: No; Hx Alcohol Use: No Hx Substance Use: No Preferred Language: Tunisian Communication Ability: Effective Broom Handle Dipper Required: No Beliefs That Will Affect Care: None marital status: / Current Living Situation: Family Current Living Situation Comment: Son and daughter in law current occupational status: retired How many Children do You have: 2 Other Information That Helps Us Care for You: No Feels Safe at Home: Yes Assistive Devices: None Review of Systems Review of Systems: All systems reviewed & are unremarkable except as noted in Subjective Physical Exam Physical Exam: General- Not in distress. Head- atraumatic Eyes- PERRL. ENT- oropharynx clear Neck- supple, no JVD, Lungs- clear to auscultation and percussion Heart- regular rhythm; no murmur, no gallop, Abdomen- normal bowel sounds, soft, nontender, no distension Extremities- no pretibial edema, no erythema. Neuro- alert, oriented x 3; PERRL, EOMI; no facial palsy; no dysarthria; non focal. Skin- warm & dry Results & Data Results & Data Vital Signs (Past 12 Hours) Vital Signs Temp Pulse Pulse Resp BP BP Pulse Ox 01/10/23 23:30 66 14 123/56 L 93 01/10/23 23:00 89 20 146/85 H 97 01/10/23 22:30 73 14 129/63 95 01/10/23 22:00 72 20 113/80 97 01/10/23 21:30 71 12 121/62 95 01/10/23 21:01 81 16 134/69 94 01/10/23 20:55 70 12 148/75 H 96 01/10/23 20:30 71 16 135/74 96 01/10/23 23:26 66 01/10/23 20:55 148/75 H 01/10/23 20:01 72 16 150/100 H 96 01/10/23 19:00 72 16 143/84 H 96 01/10/23 18:00 68 18 124/79 98 01/10/23 16:44 100 01/10/23 16:43 71 19 148/106 H 100 01/10/23 15:24 74 01/10/23 15:12 01/10/23 15:00 36.8 C 82 20 173/94 H 96 O2 Del Method 01/10/23 23:30 01/10/23 23:00 01/10/23 22:30 01/10/23 22:00 01/10/23 21:30 01/10/23 21:01 01/10/23 20:55 01/10/23 20:30 01/10/23 23:26 01/10/23 20:55 01/10/23 20:01 01/10/23 19:00 01/10/23 18:00 Room Air 01/10/23 16:44 Room Air 01/10/23 16:43 Room Air 01/10/23 15:24 01/10/23 15:12 Room Air 01/10/23 15:00 Room Air Diagnostic Findings Laboratory Results WBC 8.88 K/ul (4.8-10.8) 01/10/23 15:22 RBC 4.22 M/uL (4.20-5.40) 01/10/23 15:22 Hgb 13.1 g/dl (12.0-16.0) 01/10/23 15:22 Hct 38.8 % (37.0-47.0) 01/10/23 15:22 MCV 91.9 fL (80.0-100.0) 01/10/23 15:22 MCH 31.0 pg (25.0-34.0) 01/10/23 15: MCHC 33.8 g/dL (32.0-36.0) 01/10/23 15:22 RDW Std Deviation 44.6 fL (36.4-46.3) 01/10/23 15:22 RDW Coeff of Ashok 13.3 % (11.5-14.5) 01/10/23 15:22 Plt Count 262 K/uL (130-400) 01/10/23 15:22 MPV 11.3 fL (9.4-12.4) 01/10/23 15:22 Immature Gran % (Auto) 0.5 % 01/10/23 15:22 Neut % (Auto) 61.1 % 01/10/23 15:22 Lymph % (Auto) 26.2 % 01/10/23 15:22 Twiggs % (Auto) 7.9 % 01/10/23 15:22 Eos % (Auto) 3.6 % 01/10/23 15:22 Baso % (Auto) 0.7 % 01/10/23 15:22 Neut # (Auto) 5.43 K/uL (1.40-6.50) 01/10/23 15:22 Lymph # (Auto) 2.33 K/uL (1.2-3.4) 01/10/23 15:22 Twiggs # (Auto) 0.70 K/uL (0.11-0.59) H 01/10/23 15:22 Eos # (Auto) 0.32 K/uL (0-0.50) 01/10/23 15:22 Baso # (Auto) 0.06 K/uL (0-0.2) 01/10/23 15:22 Immature Gran # (Auto) 0.04 K/uL (0.01-0.20) 01/10/23 15:22 Sodium 139 mmol/L (136-145) 01/10/23 15:22 Potassium 4.0 mmol/L (3.5-5.1) 01/10/23 15:22 Chloride 109 mmol/L (98-107) H 01/10/23 15:22 Carbon Dioxide 25 mmol/L (21-32) 01/10/23 15:22 Anion Gap 5 (3-11) 01/10/23 15:22 BUN 20 mg/dl (6-23) 01/10/23 15:22 Creatinine 0.84 mg/dl (0.6-1.2) 01/10/23 15:22 Est Cr Clr Drug Dosing 54.6 ml/min 01/10/23 15:22 Est GFR ( Amer) 82.2 ml/min 01/10/23 15:22 Est GFR (Non-Af Amer) 70.9 ml/min 01/10/23 15:22 BUN/Creatinine Ratio 23.8 (10-20) H 01/10/23 15:22 Glucose 84 mg/dl (70-99(Fasting)) 01/10/23 15:22 Calcium 9.0 mg/dl (8.6-10.3) 01/10/23 15:22 Phosphorus 2.8 mg/dl (2.5-4.9) 01/10/23 15:22 Magnesium 1.9 mg/dl (1.7-2.4) 01/10/23 15:22 Total Bilirubin 0.3 mg/dl (0.2-1.0) 01/10/23 15:22 AST 18 U/L (13-39) 01/10/23 15:22 ALT 20 U/L (7-52) 01/10/23 15:22 Alkaline Phosphatase 88 U/L (34-104) 01/10/23 15:22 Troponin I High Sens 3.1 pg/ml (0-14) 01/10/23 18:20 B-Natriuretic Peptide 11 pg/ml (0-100) 01/10/23 15:22 Total Protein 6.9 gm/dl (6.0-8.3) 01/10/23 15:22 Albumin 4.3 gm/dl (3.4-5.0) 01/10/23 15:22 Globulin 2.6 gm/dl (2.5-4.0) 01/10/23 15:22 Albumin/Globulin Ratio 1.7 (0.9-2) 01/10/23 15:22 Lipase 14 U/L (11-82) 01/10/23 15:22 Impressions Chest X-Ray 01/10/23 15:12 XR chest 1V portable CLINICAL HISTORY: Chest pain, nonspecific COMPARISON STUDY: Chest CT April 18, 2021. FINDINGS: Lung volumes are normal. No consolidation is identified. Mild reticulonodular interstitial thickening is unchanged. This is chronic. There is no pneumothorax or pleural effusion. Cardiac size is normal. Mediastinal contours are normal. There is no evidence for pulmonary edema. IMPRESSION: No acute cardiopulmonary findings. Chronic interstitial thickening. ACT 112: Negative or not required by law. Electronically signed by: Kiran Beavers M.D. 01/10/2023 3:45 PM Chest CTA 01/10/23 15:36 CT angio chest PE protocol CT DOSE: 677.47 mGy.cm HISTORY: 67 years-old Female with sob, r/o PE. Acute shortness of breath TECHNIQUE: Multiple CTA images of the chest were obtained after the intravenous administration of 116 ml Optiray. Coronal and sagittal MIPS were obtained from the axial data set and were submitted for review. All measurements were obtained according to NASCET criteria. A dose lowering technique was utilized adhering to the principles of ALARA. COMPARISON: 04/18/2021 FINDINGS: CTA: There is adequate opacification of the pulmonary arteries to the level of the subsegmental branches without convincing evidence of acute pulmonary embolism. Heart is normal in size. Moderate coronary artery calcifications. Atherosclerosis of the aorta without aneurysm. CT CHEST: Unremarkable thyroid. No lymphadenopathy. No pneumothorax, pleural effusion or overt pulmonary edema mild emphysema with biapical and dependent bibasilar subpleural blebs and fibrosis, slightly progressed. No suspicious pulmonary nodules or masses. Mild bronchial wall thickening. There are a few scattered low suspicion solid pulmonary nodules measuring up to 3 mm and are stable. No acute process of the imaged upper abdomen. Cholecystectomy. Tiny hiatal hernia. Left infraspinatus muscle atrophy suggestive of chronic tendon tear. IMPRESSION: 1. No pulmonary emboli identified. 2. Emphysema with bronchitis and mild fibrotic changes. 3. No lymphadenopathy. ACT 112: Negative or not required by law. The above report was generated using voice recognition software. It may contain grammatical, syntax or spelling errors. Electronically signed by: Prashanth Quinn M.D. 01/10/2023 5:05 PM ECG Additional Comments: ECG normal sinus rhythm rate of [address] changes seen Code Status & VTE Plan VTE Prophylaxis Plan VTE Prophylaxis will be ordered: Yes
[2023-01-11] MEDS ORDERED: NITROGLYCERIN SL 0.4 MG/TAB TAB SL PRN (01:33)
[2023-01-11] MEDS ORDERED: POLYETHYLENE (MIRALAX) 17 GM PACK PO PRN (01:33)
[2023-01-11] MEDS ORDERED: ALBUT/IPRATROP 3MG/0.5MG NEB 3 ML VIAL NEB PRN (01:33)
[2023-01-11] MEDS ORDERED: MoRPHine SULFATE 2 MG/ML CARP IV PRN (01:33)
[2023-01-11] MEDS ORDERED: ACETAMINOPHEN 325 MG TAB PO PRN (01:33)
[2023-01-11 06:10] LABS: Basophils # (auto) 0.03 K/uL (0-0.2); Basophils % (auto) 0.3 %; Hematocrit (blood only) 35.8 % (37.0-47.0); Hemoglobin 12.1 g/dl (12.0-16.0); Immature Granulocytes # (auto) 0.06 K/uL (0.01-0.20); Immature Granulocytes % (auto) 0.6 %; Lymphocytes # (auto) 1.13 K/uL (1.2-3.4); Lymphocytes % (auto) 12.2 %; Mean Corpuscular Hemoglobin 30.8 pg (25.0-34.0); Mean Corpuscular Hgb Conc 33.8 g/dL (32.0-36.0); Mean Corpuscular Volume 91.1 fL (80.0-100.0); Mean Platelet Volume 11.3 fL (9.4-12.4); Monocytes # (auto) 0.15 K/uL (0.11-0.59); Monocytes % (auto) 1.6 %; Neutrophils # (auto) 7.87 K/uL (1.40-6.50); Neutrophils % (auto) 85.3 %; Platelet Count 237 K/uL (130-400); RDW Coefficient of Variation 13.4 % (11.5-14.5); Red Blood Count 3.93 M/uL (4.20-5.40); White Blood Count 9.24 K/ul (4.8-10.8)
[2023-01-11 06:16] LABS: Anion Gap 6 (3-11); BUN Creatinine Ratio 28.3 (10-20); Blood Urea Nitrogen 17 mg/dl (6-23); Calcium 8.5 mg/dl (8.6-10.3); Carbon Dioxide 21 mmol/L (21-32); Chloride 110 mmol/L (98-107); Creatinine Clr Calc Pharmacy 76.8 ml/min; Est GFR (African American) 107.8 ml/min; Glucose 146 mg/dl (70-99(Fasting)); Magnesium 1.9 mg/dl (1.7-2.4); Potassium 4.1 mmol/L (3.5-5.1); Sodium 137 mmol/L (136-145)
[2023-01-11 06:23] LABS: Troponin I High Sensitivity < 2.3 pg/ml (0-14)
[2023-01-11] MEDS: PANTOprazole 40 MG TAB PO SCH (08:31)
[2023-01-11] MEDS: FLUTICASONE/VILANTEROL 100/25MCG 14 PUFFS/INHALER INH SCH (08:31)
[2023-01-11] MEDS: CHOLECALCIFEROL 1,000 UNITS 25 MCG TAB PO SCH (08:31)
--- NOTE | 2023-01-11 08:43 | XCELERA ---
[id number] \\[email or web address]_[email or web address]\[id number]
[2023-01-11] MEDS ORDERED: LOSARTAN POTASSIUM 25 MG TAB PO SCH (09:00)
[2023-01-11] MEDS ORDERED: PYRIDOXINE PO SCH (09:00)
--- NOTE | 2023-01-11 09:21 | Electrocardiogram Report ---
Test Reason : Blood Pressure : / mmHG Vent. Rate : 064 BPM Atrial Rate : 064 BPM P-R Int : 196 ms QRS Dur : 082 ms QT Int : 454 ms P-R-T Axes : 052 -15 014 degrees QTc Int : 468 ms Normal sinus rhythm Normal ECG When compared with ECG of 10-JAN-2023 21:45, No significant change was found Confirmed by Edis Roman ([id number]) on 01/11/2023 9:21:19 AM Referred By: Aldo Lam Confirmed By:Edis Roman
--- NOTE | 2023-01-11 09:22 | Electrocardiogram Report ---
Test Reason : Blood Pressure : / mmHG Vent. Rate : 071 BPM Atrial Rate : 071 BPM P-R Int : 190 ms QRS Dur : 076 ms QT Int : 420 ms P-R-T Axes : 042 -22 025 degrees QTc Int : 456 ms Normal sinus rhythm Normal ECG When compared with ECG of 10-JAN-2023 15:11, Criteria for Anterior infarct no longer present Confirmed by Edis Roman ([id number]) on 01/11/2023 9:21:51 AM Referred By: Aldo Lam Confirmed By:Edis Roman
[2023-01-11 10:46] LABS: Chol HDL Ratio 3.4 (0-5); Cholesterol 182 mg/dl (0-200); HDL Cholesterol 53 mg/dl; LDL Cholesterol Calculated 121 mg/dl; Triglycerides 41 mg/dl (0-150); VLDL Cholesterol 8 mg/dl (0-30)
--- NOTE | 2023-01-11 12:36 | Hospitalist Progress Note ---
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 Reported no improvement with aspirin and nitroglycerin in the ED but improvement with morphine. She is being managed for the following: Exertional chest pain Patient presents with chest pain [see above], history of CAD status post stent Patient denies any flulike illness or increased cough or febrile illness lately. Troponin x3 negative, EKG with NSR. Echo with EF of 65 to 70%, normal LV structure and function. Chest imaging with no acute findings; emphysema with bronchitis and mild fibrotic changes noted. Patient reports waking up with chest heaviness overnight, relieved with morphine. Continue with telemetry monitoring, cardiology consulted, await recommendation. History of CAD status post stent to RCA: On aspirin, statin stopped end of November because of back cramps. Says if needed she wants to go on Lipitor as she thinks it was better than crestor. Hypertension: Continue home losartan COPD: Former smoker, quit 1974, continue home inhalers, stableno wheezing. DVT prophylaxis: SCDs Dispo: Med telemetry, awaiting cardiac eval Full code Admission and Anticipated Discharge Date Admission Date: January 10, 2023 Subjective Patient seen and examined at bedside as a follow-up of exertional chest pain. Patient was lying in bed, on room air, NAD, reports waking up with chest heaviness overnight which was relieved with morphine, denies headache or dizziness or palpitation or fever or chills or flulike illness. Denies cough. Reports eating okay. Physical Exam Physical Exam: GENERAL: Alert and oriented x3. NAD, on RA. HEENT: No pallor, no icterus. Pupils equal, round and reactive to light. Oral mucosa moist. NECK: No JVD, no neck masses. HEART: S1 and S2 heard. Regular rate and rhythm. No murmur, no gallop. RESPIRATORY SYSTEM: Normal AP diameter. No accessory muscle use. No wheezing, no crackles. ABDOMEN: Soft, bowel sounds present, nontender, no distention. CENTRAL NERVOUS SYSTEM: No facial droop. Speech is clear. Obeys simple commands. Moves extremities. EXTREMITIES: No edema, no erythema seen. Results & Data Results & Data Vital Signs (Past 12 Hours) Vital Signs Temp Pulse Pulse Pulse Resp BP BP 01/11/23 10:55 36.5 C 65 18 129/84 01/11/23 07:58 66 01/11/23 07:43 36.4 C L 95 H 66 18 129/67 01/11/23 06:14 119/72 01/11/23 03:00 36.5 C 64 18 99/63 L 01/11/23 01:16 73 01/11/23 01:05 36.4 C L 69 14 130/74 01/11/23 00:30 75 16 121/58 L Pulse Ox O2 Del Method 01/11/23 10:55 96 Room Air 01/11/23 07:58 01/11/23 07:43 95 Room Air 01/11/23 06:14 01/11/23 03:00 97 Room Air 01/11/23 01:16 01/11/23 01:05 95 Room Air 01/11/23 00:30 93
--- NOTE | 2023-01-11 13:08 | Cardiology Consultation ---
Date of Consultation January 11, 2023 Assessment & Plan (1) Exertional chest pain: Initial concern was for occlusive coronary artery disease, however stress echocardiogram showed no evidence of focal myocardial ischemia which would likely benefit from revascularization. Do suspect that her symptoms may be ang inal, most likely due to supply/demand mismatch from hypertensive response to any activity. Recommend management of her chronic coronary artery disease and hypertension as noted below. (2) CAD (coronary artery disease): No evidence of acute coronary syndrome, continue aspirin 81 mg daily. Lipid profile suboptimal with LDL greater than 70, she did have an LDL of 49 on high-dose atorvastatin but apparently had side effects and stopped taking the medication. Would attempt reintroducing statin, perhaps an alternative agent at a lower dose. If truly intolerant of statin, would be a candidate for PCSK9 inhibitor (however must of tried several statins before this is usually approved). (3) Labile hypertension: Uncontrolled hypertension with modest physical activity which likely creates supply/demand mismatch with resultant anginal symptoms. May be difficult to manage given her labile BP, normotensive at times with marked hypertension at other times. Ideally, would be on a beta-devan to decrease heart rate response to activity as well as an agent to decrease blood pressure response. one option would be labetalol, given normotensive BP at times might start with lower than the usual dose, could use labetalol 50 mg twice daily. Would discontinue losartan, since this appears ineffective at controlling her exertional spikes in BP. Would recommend having clonidine 0.1 mg available for PRN usage up to twice a day for any acute elevations in blood pressure. Patient should be monitoring BP at home. If she does not tolerate labetalol due to orthostasis or relative hypotension on even low doses, could switch to clonidine 0.1 mg twice daily as her maintenance antihypertensive. (4) S/P right coronary artery (RCA) stent placement: As above, continue aspirin and attempt to reintroduce statin. (5) Dyslipidemia: As above (6) COPD (chronic obstructive pulmonary disease): No evidence of ongoing or major bronchospasm on exam, doubt that increased respiratory effort plays a role in her current chest pain syndrome. Recommended obtaining peak flow meter to better document relationship between any symptoms and status of her COPD on a day-to-day basis. History of Present Illness Reason for Consultation: chest pain. hx of cad Requesting Physician: Dylan Santana MD Attending Physician: Paul Billingsley MD History of Present Illness 65-year-old woman with CAD (JASVIR RCA 2020, 50% ostial D1 only remaining stenosis), COPD, hypertension, dyslipidemia who was admitted yesterday with primarily exertional chest discomfort which has been increasing over the past week. She notes that the symptoms are similar to those she had in 2020 prior to her RCA stenting, central chest heaviness radiating to her back and neck with some vague discomfort at rest but marked increase in chest discomfort when walking upstairs. She also notes becoming much more easily winded with any exertion. No orthopnea, PND or leg edema. No recent weight change. No palpitations, presyncope, or syncope. She did note a mild headache today. Initial evaluation was unrevealing with serial ECGs and enzymes normal. She did undergo a stress echocardiogram today and walked for 4 minutes on a Jean Marie protocol achieving 94% maximum predicted heart rate. She had mild chest discomfort at baseline which increased during activity and diminished post exercise. ECG showed sinus rhythm with isoelectric ST segments which did not substantially change during exercise. Resting echocardiogram showed EF 65% with no wall motion abnormalities and with normal RVSP, post exercise all zepeda augmented appropriately with no evidence of myocardial ischemia. Resting BP was 119/73, peak BP 236/88 mmHg. At the conclusion of the study, she noted return of her chest discomfort to minimal level and had no other somatic complaints. Allergies Allergy/AdvReac Type Severity Reaction Status Date / Time Aminoglycosides Allergy Mild EYE BECAME Verified 03/29/22 13:34 RED,SWOLLEN WITH OPTH IDA gentamicin Allergy Mild EYE BECAME Verified 03/29/22 13:34 RED,SWOLLEN WITH OPTH IDA Home Medications Medication Instructions Recorded Confirmed Type fluticasone 113mcg-salmeterol 1 inh inhalation BID 07/16/20 01/10/23 History 14mcg/actuation breath act,powder sensor ([employer] Digihaler) coenzyme Q10 100 mg capsule (Co 100 mg PO DAILY 09/17/21 01/10/23 History Q-10) losartan 25 mg tablet 25 mg PO DAILY 09/17/21 01/10/23 History pyridoxine (vitamin B6) 500 mg 500 mg PO DAILY 09/17/21 01/10/23 History tablet cholecalciferol (vitamin D3) 25 25 mcg PO DAILY 03/29/22 01/10/23 History mcg (1,000 unit) capsule (Vitamin D3) omeprazole 20 mg capsule,delayed 20 mg PO DAILY 03/29/22 01/10/23 History release aspirin 81 mg tablet,delayed 81 mg PO QPM 01/10/23 01/10/23 History release Patient History Medical History CAD (coronary artery disease) No remaining occlusive disease after RCA stent 2020 Conductive hearing loss of both ears COPD (chronic obstructive pulmonary disease) H/O gastroesophageal reflux (GERD) Sensorineural hearing loss of both ears Surgical History History of cholecystectomy History of hysterectomy History of lithotripsy History of repair of rotator cuff Family History Father Cancer Hearing loss Hypertension Heart disease Mother Hypertension Heart disease Sister Asthma Other No family history of allergies No family history of bleeding disorder Denies family history of Stroke Social History Smoking Status: Former smoker Tobacco Type: Cigarettes packs per day: 1; Cigarettes Per Day: x 25-30 years, quit in 1981; Do You Dip or Chew Tobacco: No; Hx Alcohol Use: No Hx Substance Use: No Preferred Language: Mongolian Communication Ability: Effective 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 BP currently normotensive (129/84 mmHg). Pulse 65 bpm and regular. No distress. Skin: no ecchymoses or generalized lesions. HEENT: unremarkable. Neck: JVP at the clavicle at 90 degrees, no carotid bruits. Lungs: clear. Cardiac: regular rhythm, normal S1-2, no murmur. Abdomen: benign. Extremities: no edema, pulses intact. Neurologic: normal affect and conversation, nonfocal. Results & Data Laboratory Results Troponin 3.1 pg/nl or less on 3 draws. Normal CBC. Normal electrolytes, BUN 17, creatinine 0.6. Cholesterol 182, HDL 53, LDL 121. Diagnostic Findings Initial ECG showed sinus rhythm at 71 bpm and was unremarkable. 2 subsequent ECGs were also unremarkable. Chest x-ray showed chronic interstitial thickening with no acute change. Chest CT showed emphysema with mild fibrotic changes, no pulmonary emboli. Resting echocardiogram today showed EF 65 to 70% with normal LV structure and function and no wall motion normalities, normal RV size and function, normal RVSP, no significant valvular disease. Compared to 2020 study, no significant change. Stress echocardiogram results as noted in HPI. PG Care Time/CCT Total # of Minutes Spent Total Time Spent with Patient: Total time spent is greater than 50% in coordination of care (as documented) at patient's floor/unit and/or counseling patient: Coding Level of Care Code 44838 IN/OBS CONSULT LVL 4,60M Diagnoses Exertional chest pain R07.9 CAD (coronary artery disease) I25.10 Labile hypertension R09.89 S/P right coronary artery (RCA) stent placement Z95.5 Dyslipidemia E78.5 COPD (chronic obstructive pulmonary disease) J44.9
--- NOTE | 2023-01-11 13:35 | XCELERA ---
[id number] \\[email or web address]_PDF_[id number]
[2023-01-11] MEDS ORDERED: cloNIDine HCL 0.1 MG TAB PO PRN (14:11)
[2023-01-11] MEDS: LABETALOL HCL 100 MG TAB PO SCH (20:08)
[2023-01-11] MEDS ORDERED: ASPIRIN 81 MG ECTAB PO SCH (21:00)
[2023-01-11] MEDS ORDERED: ATORVASTATIN 20 MG TAB PO SCH (21:00)
[2023-01-12] MEDS: FLUTICASONE/VILANTEROL 100/25MCG 14 PUFFS/INHALER INH SCH (08:53)
[2023-01-12] MEDS: LABETALOL HCL 100 MG TAB PO SCH (08:54)
[2023-01-12] MEDS: CHOLECALCIFEROL 1,000 UNITS 25 MCG TAB PO SCH (08:54)
[2023-01-12] MEDS: PANTOprazole 40 MG TAB PO SCH (08:54)
[2023-01-12 09:21] LABS: Hematocrit (blood only) 38.4 % (37.0-47.0); Mean Corpuscular Hgb Conc 33.9 g/dL (32.0-36.0); Mean Corpuscular Volume 91.4 fL (80.0-100.0); Mean Platelet Volume 11.6 fL (9.4-12.4); Platelet Count 274 K/uL (130-400); RDW Coefficient of Variation 13.9 % (11.5-14.5); RDW Standard Deviation 46.5 fL (36.4-46.3); White Blood Count 11.79 K/ul (4.8-10.8)
[2023-01-12 09:34] LABS: BUN Creatinine Ratio 24.4 (10-20); Calcium 9.2 mg/dl (8.6-10.3); Creatinine Clr Calc Pharmacy 56.2 ml/min; Est GFR (African American) 84.6 ml/min; Potassium 3.6 mmol/L (3.5-5.1)
--- NOTE | 2023-01-12 10:03 | Cardiology Progress Note ---
Date of Service January 12, 2023 Assessment & Plan (1) Exertional chest pain: Plan: [place] to be potentially secondary to hypertensive urgency with resultant demand ischemia. She has known coronary artery disease which was felt to be limited after stenting in 2020, stress echocardiogram yesterday did not show any evidence of focal myocardial ischemia which would benefit from revascularization. Symptoms resolved on low-dose labetalol, blood pressure well controlled. Would have her ambulate hallways, if she remains symptom-free she could be discharged home. (2) CAD (coronary artery disease): Plan: Given known CAD would continue aspirin 81 mg daily and attempt to reintroduce statin. If truly intolerant of statin, would be a candidate for PCSK9 inhibitor (however must of tried several statins before this is usually approved). (3) Labile hypertension: (4) S/P right coronary artery (RCA) stent placement: Plan: As above, continue aspirin and attempt to reintroduce statin. (5) Dyslipidemia: Plan: As above (6) COPD (chronic obstructive pulmonary disease): Plan: Obtain peak flow meter to better document relationship between any symptoms and status of her COPD on a day-to-day basis. Plan When I asked her about cardiology follow-up, the patient expressed a desire to follow-up with Dr. Rodriguez, who performed her 2020 cardiac catheterization and who had been following her since. Admission and Anticipated Discharge Date Admission Date: January 10, 2023 Subjective Feels much better today. Yesterday when she walked to the bathroom she noted some chest heaviness, today she was symptom-free. Normotensive overnight. No orthostasis or lightheadedness. Telemetry showed sinus rhythm in the 60-70 bpm range. Physical Exam Physical Exam: Appears comfortable. Normotensive. Pulse 65 bpm and regular. No distress. Skin: no ecchymoses or generalized lesions. HEENT: unremarkable. Neck: JVP at the clavicle at 90 degrees, no carotid bruits. Lungs: clear. Cardiac: regular rhythm, normal S1-2, no murmur. Abdomen: benign. Extremities: no edema, pulses intact. Neurologic: normal affect and conversation, nonfocal. Results & Data Vital Signs (Past 12 Hours) Vital Signs Temp Pulse Pulse Resp BP Pulse Ox O2 Del Method 01/12/23 08:11 98.2 F 67 18 120/74 96 Room Air 01/12/23 07:20 65 01/12/23 03:00 97.5 F L 66 20 123/72 96 Room Air 01/11/23 23:06 70 01/11/23 22:00 97.7 F 68 18 101/61 95 Room Air Laboratory Results Normal electrolytes, BUN 20, creatinine 0.82. PG Care Time/CCT Total # of Minutes Spent Total Time Spent with Patient: Total time spent is greater than 50% in coordination of care (as documented) at patient's floor/unit and/or counseling patient: Coding Level of Care Code 28910 SUB INP/OBS CARE 3/50MIN Diagnoses Exertional chest pain R07.9 CAD (coronary artery disease) I25.10 Labile hypertension R09.89 S/P right coronary artery (RCA) stent placement Z95.5 Dyslipidemia E78.5 COPD (chronic obstructive pulmonary disease) J44.9
--- NOTE | 2023-01-12 12:43 | Electrocardiogram Report ---
Test Reason : Blood Pressure : / mmHG Vent. Rate : 064 BPM Atrial Rate : 064 BPM P-R Int : 216 ms QRS Dur : 080 ms QT Int : 436 ms P-R-T Axes : 056 -14 022 degrees QTc Int : 449 ms Sinus rhythm with 1st degree A-V block Otherwise normal ECG When compared with ECG of 11-JAN-2023 05:33, No significant change Confirmed by Edis Roman ([id number]) on 01/12/2023 12:43:25 PM Referred By: Aldo Lam Confirmed By:Edis Roman
--- NOTE | 2023-01-12 12:50 | Discharge Summary ---
Date of Service January 12, 2023 Admission HPI Per Admitting Provider 67-year-old female with past medical significant for CAD status post RCA stent in 2020, hyperlipidemia, COPD, hypertension, GERD,, former smoker presents with chest pain. Patient states chest pain going on for last 4 to 5 days. Feeling of heaviness in the chest. The pain is more with exertion and radiating to the back. Pain improves with rest. Denies any shortness of breath or nausea or dizziness. Patient recently was vacationing in [place] but has not cut back vacation because of swelling in the lower extremity and chest tightness. Swelling in the lower extremity resolved. Denies any headache. No runny nose or sore throat or cough. No dysphagia. No abdominal pain. Normal bowel and bladder movements. Nitro and aspirin did not resolve her chest heaviness in the ER. Morphine took most of her heaviness away. Hemodynamics are stable Admission Exam Per Admitting Provider General- Not in distress. Head- atraumatic Eyes- PERRL. ENT- oropharynx clear Neck- supple, no JVD, Lungs- clear to auscultation and percussion Heart- regular rhythm; no murmur, no gallop, Abdomen- normal bowel sounds, soft, nontender, no distension Extremities- no pretibial edema, no erythema. Neuro- alert, oriented x 3; PERRL, EOMI; no facial palsy; no dysarthria; non focal. Skin- warm & dry Principal Diagnosis Exertional chest pain Hypertension Discharge Exam GENERAL: Alert and oriented x3. NAD, on RA. HEENT: No pallor, no icterus. Pupils equal, round and reactive to light. Oral mucosa moist. NECK: No JVD, no neck masses. HEART: S1 and S2 heard. Regular rate and rhythm. No murmur, no gallop. RESPIRATORY SYSTEM: Normal AP diameter. No accessory muscle use. No wheezing, no crackles. ABDOMEN: Soft, bowel sounds present, nontender, no distention. CENTRAL NERVOUS SYSTEM: No facial droop. Speech is clear. Obeys simple commands. Moves extremities. EXTREMITIES: No edema, no erythema seen. Discharge Data Allergies Allergy/AdvReac Type Severity Reaction Status Date / Time Aminoglycosides Allergy Mild EYE BECAME Verified 03/29/22 13:34 RED,SWOLLEN WITH OPTH IDA gentamicin Allergy Mild EYE BECAME Verified 10/11/22 13:34 RED,SWOLLEN WITH OPTH IDA Consultations 01/10/23 20:17 ED Decision to Admit Stat 01/11/23 08:00 Consult Cardiology Routine Ordered Studies 01/10/23 15:36 CT angio chest PE protocol Stat Hospital Course (1) Exertional chest pain: Plan 67-year-old lady with PMH of CAD status post RCA stent in 2020, HLD, COPD, HTN, GERD, former smoker [quit smoking 1974] presented with chest pain 01/10 to the ED, ongoing for last 4 to 5 days [employer] especially with activity and felt as heaviness associated with shortness of breath and warmth, radiating to back. Reported no improvement with aspirin and nitroglycerin in the ED but improvement with morphine. She is being managed for the following: Exertional chest pain Patient presents with chest pain [see above], history of CAD status post stent Patient denies any flulike illness or increased cough or febrile illness lately. Troponin x3 negative, EKG with NSR. Echo with EF of 65 to 70%, normal LV structure and function. Chest imaging with no acute findings; emphysema with bronchitis and mild fibrotic changes noted. Status post stress echo 01/13, no inducible ischemia, symptoms improving on low- dose labetalol 50 mg twice a day, blood pressure well controlled. Patient is also being ordered as needed clonidine 0.1 mg twice a day for SBP greater than 165 and or DBP greater than 95 mmHg. Patient to follow-up with PCP and get labs done in a week time. Patient to follow-up with cardiology in 2 to 4 weeks time. Patient agreeable to reinstitute Lipitor at a smaller dose, continue to uptitrate as tolerated in coordination with PCP or cardiology office. Patient had covered several laps of hallways today with no chest pain today, patient is hemodynamically stable and would like to go home. History of CAD status post stent to RCA: On aspirin, statin stopped end of November because of back cramps. Says if needed she wants to go on Lipitor as she thinks it was better than crestor. --> Hold Lipitor reinstituted at 20 mg daily, plan to uptitrate in coordination with outpatient office. Hypertension: Home losartan discontinued, put on labetalol and clonidine [see above]. COPD: Former smoker, quit 1974, continue home inhalers, stableno wheezing. DVT prophylaxis: SCDs Full code Patient being discharged to home with following instruction at the point of discharge Follow-up with your primary care physician within a week time and likely you will need labs CBC/CMP/magnesium/phosphorus. Follow-up with your cardiology in 2 to 4 weeks upon discharge. Your blood pressure medication losartan has been discontinued, labetalol has been started and also as needed clonidine has been ordered. Lipitor is analy nstituted at a lower dose, continue to uptitrate in coordination with your cardiology or PCP office. Given your COPD, you will benefit from outpatient pulmonary function test. Coordinate with your PCP office to set up the test. Take your medications as prescribed. Please make sure that you are able to get your medications today by calling your pharmacy before you leave the hospital so that your treatment continuity is not broken. Home Health Attestation I certify that this patient is under my care and that I, or a physicians after school program assistant working with me, had a face to-face encounter that meets the home health [id number] encounter requirements with this patient. The encounter with the patient was in whole, or in part, for the following medical condition, which is the primary reason for home health care (list medical condition): I certify that, based on my findings, the following services are medically necessary home health services: My clinical findings support the need for the above services because: Further, I certify that my clinical findings support that this patient is homebound (i.e. absences from home require considerable and taxing effort and are for medical reasons or [employer] services or infrequently or of short duration when for other reasons) because: Certification for Home Health Services: Based on the above findings, I certify that this patient is confined to the home and needs intermittent senior living care, physical therapy and/or speech therapy or continues to need occupational therapy. The patient is under my care, and I have initiated the establishment of the plan of care. This patient will be followed by a physician who will periodically review the plan of care. Total Time Total Time Spent Total Time Spent (In Minutes): 45 Discharge Plan Discharge Items Patient Disposition: Home - Self-Care Reason For Visit: CHEST PAIN Discharge Diagnosis: Exertional chest pain Hypertension Activity: Resume your previous activity Non-emergency contact: Primary Care Provider Call non-emergency contact if: you have any medication questions, your symptoms worsen and your temperature is above 101 Follow-up/Referrals: Aldo Lam, DO [Primary Care Provider] - (Dr Lam's office is aware of your discharge. The office will call you with an available follow up appointment. ) Diet: Heart Healthy and Low Sodium (2gm) Addtl Attending Provider Instructions: Follow-up with your primary care physician within a week time and likely you will need labs CBC/CMP/magnesium/phosphorus. Follow-up with your cardiology in 2 to 4 weeks upon discharge. Your blood pressure medication losartan has been discontinued, labetalol has been started and also as needed clonidine has been ordered. Lipitor is reinstituted at a lower dose, continue to uptitrate in coordination with your cardiology or PCP office. Given your COPD, you will benefit from outpatient pulmonary function test. Coordinate with your PCP office to set up the test. Take your medications as prescribed. Please make sure that you are able to get your medications today by calling your pharmacy before you leave the hospital so that your treatment continuity is not broken. Pending Studies at Discharge: No Stand-Alone Forms: My [facility] [employer], Smoking Cessation Medications and DC Order Prescriptions: New atorvastatin 20 mg Tablet 20 mg PO HS Qty: 30 0RF clonidine HCl 0.1 mg Tablet 0.1 mg PO BID PRN (Reason: for SBP > 165 mmHg or DBP > 95 mmHg) Qty: 60 0RF labetalol 100 mg Tablet 50 mg PO BID Qty: 30 0RF nitroglycerin [Nitrostat] 0.4 mg Tablet, Sublingual 0.4 mg sublingual UD PRN (Reason: chest pain) Qty: 30 0RF Continued omeprazole 20 mg capsule,delayed release(DR/EC) 20 mg PO DAILY cholecalciferol (vitamin D3) [Vitamin D3] 25 mcg (1,000 unit) capsule 25 mcg PO DAILY coenzyme Q10 [Co Q-10] 100 mg capsule 100 mg PO DAILY pyridoxine (vitamin B6) 500 mg tablet 500 mg PO DAILY AirDuo Digihaler 113 mcg-14 mcg/actuation aero powdr breath act w/sensor 1 inh inhalation BID aspirin 81 mg tablet,delayed release (DR/EC) 81 mg PO QPM Discontinued losartan 25 mg tablet 25 mg PO DAILY Discharge Orders: Discharge Order (Routine); Ordered 01/12/23 Ordered By: Paul Billingsley Admission Data Admit Date/Time: 07/25/23 23:42 Attending Provider: Paul Billingsley Admit Provider: Dylan Santana Primary Care Provider: Aldo Lam Other Providers: Dylan Santana ; Edis Roman
== END 2023-01-12 15:23 | disposition home or self-care (01) ==
LOC: ED 14:51 → 2N 14:51

== ENCOUNTER 2023-08-31 14:11 | Observation (INO) ==
--- NOTE | 2023-08-31 14:17 | ED Triage Note ---
Date of Service August 31, 2023 Provider in Triage Author: Olman Bee History of Present Illness This patient was briefly evaluated while in triage. An abbreviated physical exam was performed. This patient is a 67-year-old Female who presents to the ED for evaluation of chest heaviness and shortness of breath. Started last night, went away after laying down. Was feeling symptoms this morning, saw PCP for BP check, referred to ED. Had stent placed about 3 years ago. Feels similar. Physical Exam CONSTITUTIONAL: in no acute pain or distress, resting comfortably SKIN: pink, warm, dry CARDIAC: regular rate and rhythm RESPIRATORY: in no respiratory distress, lungs clear to auscultation ABDOMEN: soft Initial orders for labs and / or imaging were placed and patient was placed in the waiting area until a bed is available. Please see further documentation for the full ED course.
[2023-08-31] MEDS: ASPIRIN CHEW 324 MG PO STA (14:24)
[2023-08-31 15:02] LABS: Basophils # (auto) 0.08 K/uL (0.00-0.20); Basophils % (auto) 0.7 %; Eosinophils # (auto) 0.48 K/uL (0.00-0.50); Eosinophils % (auto) 4.5 %; Hematocrit (blood only) 39.8 % (37.0-47.0); Immature Granulocytes # (auto) 0.05 K/uL (0.01-0.20); Immature Granulocytes % (auto) 0.5 %; Lymphocytes # (auto) 1.95 K/uL (1.20-3.40); Lymphocytes % (auto) 18.2 %; Mean Corpuscular Hemoglobin 30.4 pg (25.0-34.0); Mean Corpuscular Hgb Conc 32.7 g/dL (32.0-36.0); Mean Platelet Volume 11.1 fL (9.4-12.4); Monocytes # (auto) 0.92 K/uL (0.11-0.59); Monocytes % (auto) 8.6 %; Neutrophils # (auto) 7.21 K/uL (1.40-6.50); Neutrophils % (auto) 67.5 %; Platelet Count 256 K/uL (130-400); RDW Coefficient of Variation 14.2 % (11.5-14.5); RDW Standard Deviation 47.7 fL (36.4-46.3); Red Blood Count 4.28 M/uL (4.20-5.40); White Blood Count 10.69 K/ul (4.8-10.8)
[2023-08-31 15:19] LABS: Partial Thromboplastin Time 28 Seconds (21-31); Prothrombin Time 10.5 Seconds (9.0-12.0)
--- NOTE | 2023-08-31 15:21 | XRay Report ---
XR chest 1V portable HISTORY: 67 years-old Female chest heaviness chest pain COMPARISON: CTA chest 01/10/2023 TECHNIQUE: AP view of the chest FINDINGS: Cholecystectomy. Cardiomediastinal and hilar silhouettes are within normal limits. No pneumothorax, p leural effusion or airspace consolidation. Bones appear grossly intact. IMPRESSION: No acute process. ACT 112: Negative or not required by law. The above report was generated using voice recognition software. It may contain grammatical, syntax o r spelling errors. Electronically signed by: Prashanth Quinn M.D. 08/31/2023 3:20 PM
--- NOTE | 2023-08-31 15:24 | Emergency Department Note ---
Impression & Plan Atypical chest pain, History of coronary artery disease ED Provider Note Provider: Olman Bee MD DATE OF SERVICE: 08/31/2023 CHIEF COMPLAINT: Chest pressure, hypertension HISTORY OF PRESENT ILLNESS: Patient is a 67-year-old female history of hypertension, CAD with RCA stent, GERD, and COPD presenting here today referred from outpatient primary doctor's office. Reports she was having a routine follow-up regarding hypertension and recently increasing her blood pressure medication. Patient states however last night began to experience a pressure and full sensation in her chest radiating to her back. Worse with certain movements or if she tries to exert herself. When the pain is somewhat severe with this movement she does become short of breath. Denies abdominal pain. Denies arm or jaw pain. Denies any falls or trauma. Denies recent illness or URI symptoms. States this does feel quite similar to when she needed a cardiac stent several years ago. Does take a baby aspirin. Talked with her doctor today and referred here for evaluation. Symptoms have waxed and waned a bit today but constant almost in some manner since last night. PAST MEDICAL HISTORY: As noted above MEDICATIONS: Reviewed home medications includes aspirin SOCIAL HISTORY: Former smoker PHYSICAL EXAM: GENERAL: alert and oriented in no acute distress on stretcher Head: normocephalic and atraumatic EYES: No injection, discharge or icterus. NECK: Trachea midline. Supple. ENT: Mucous membranes pink and moist. LUNGS: Airway patent. No retractions. Breath sounds clear HEART: Regular rate and rhythm. No chest wall tenderness ABDOMEN: Soft and non-tender, without guarding or rebound. SKIN: Acyanotic, warm, dry, without rashes EXTREMITIES: Without tenderness or deformity in extremities. Trace edema of the feet. Patient does experience some increase in the pressure with certain movements of the arms and her chest. NEUROLOGICAL: No focal deficits. No aphasia. No facial droop or slurred speech. Ambulatory. EK beats per minute. Normal sinus rhythm. No PVC or PAC. No acute ST segment elevation or depression with QTc 436 CONTINUOUS CARDIAC MONITORING: was ordered and showed a heart rate of 50s to 60s bpm in normal sinus rhythm to sinus bradycardia Patient's laboratory studies and imaging reviewed. Differential includes Cardiac ischemia, aortic dissection, pulmonary embolism, pneumothorax, pneumonia, pericarditis, myocarditis, esophageal rupture, GERD, cholecystitis, pancreatitis, musculoskeletal, as well as other pathologies. IMPRESSION/MEDICAL DECISION MAKING: Patient with history of cardiac disease and similar symptoms now representing. Do of some concern regarding her pain complaint with the similarity of prior. EKG here without evidence of acute STEMI. Troponin and blood work were sent. No significant swelling I doubt acute CHF. Doubt this is a primary pulmonary in nature given her lack of hypoxia and only when she is having significant chest pressure/discomfort is when she gets a bit short of breath. No recent travel and no significant swelling of the legs and I doubt PE/DVT. Lower suspicion for dissection given the more exertional component to her symptoms. Blood pressure is not badly controlled at all. Fairly benign abdomen. Did receive full dose aspirin here from triage. Blood work here without significant anemia. Normal platelets and white blood cell count. Chemistries completed here without significant electrolyte abnormality or signs of renal dysfunction. Noted to have additional pancreatitis. Troponin does return normal which is reassuring against acute heart injury but again concerning symptoms could represent anginal pattern. Again doubt this represents dissection at this time. Given her cardiac risk factors does give her an elevated heart score of 4-5. Discussed with patient and family at bedside. Recommended further observation and evaluation given ongoing nonexertional type symptoms. DIAGNOSIS: Atypical chest pain, history of CAD DISPOSITION: Hospitalist will evaluate Patient was agreeable with this plan. Past Med/Surg History Medical History CAD (coronary artery disease) No remaining occlusive disease after RCA stent 2020 Sensorineural hearing loss of both ears Conductive hearing loss of both ears COPD (chronic obstructive pulmonary disease) H/O gastroesophageal reflux (GERD) Surgical History History of cholecystectomy History of repair of rotator cuff History of hysterectomy History of lithotripsy Family History Father Cancer Hearing loss Hypertension Heart disease Mother Hypertension Heart disease Sister Asthma Other No family history of allergies No family history of bleeding disorder Denies family history of Stroke Social History Smoking Status: Former smoker Tobacco Type: Cigarettes packs per day: 1; Cigarettes Per Day: x 25-30 years, quit in 1981; Do You Dip or Chew Tobacco: No; Hx Alcohol Use: No Hx Substance Use: No Preferred Language: Mosotho Communication Ability: Effective Head Setter Required: No Beliefs That Will Affect Care: None marital status: / Current Living Situation: Family Current Living Situation Comment: Son and daughter in law current occupational status: retired How many Children do You have: 2 Feels Safe at Home: Yes Assistive Devices: None Allergies Allergies Allergy/AdvReac Type Severity Reaction Status Date / Time Aminoglycosides Allergy Mild EYE BECAME Verified 07/25/23 15:49 RED,SWOLLEN WITH OPTH IDA gentamicin Allergy Mild EYE BECAME Verified 07/25/23 15:49 RED,SWOLLEN WITH OPTH IDA Home Meds Home Medications Medication Instructions Recorded Confirmed coenzyme Q10 100 mg capsule (Co 100 mg PO DAILY 09/17/21 07/25/23 Q-10) omeprazole 20 mg capsule,delayed 20 mg PO DAILY 03/29/22 07/25/23 release aspirin 81 mg tablet,delayed 81 mg PO QPM 01/10/23 07/25/23 release ezetimibe [Zetia] PO 02/15/23 07/25/23 isosorbide mononitrate [Imdur] PO 02/15/23 07/25/23 mecobalamin (vitamin B12) 2,500 2,500 mcg PO DAILY 02/15/23 07/25/23 mcg chewable tablet fluticasone 232mcg-salmeterol 1 inh inhalation BID 04/07/23 07/25/23 14mcg/actuation breath act,powder sensor (AirDuo Digihaler) Previous Rx's Medication Instructions Recorded clonidine HCl 0.1 mg tablet 0.1 mg PO BID PRN for SBP > 165 01/12/23 mmHg or DBP > 95 mmHg #60 tabs labetalol 100 mg tablet 50 mg (1/2 x 100 mg) PO BID #30 01/12/23 tabs nitroglycerin 0.4 mg sublingual 0.4 mg sublingual UD PRN chest 01/12/23 tablet (Nitrostat) pain #30 tabs Results & Data (ED) Vital Signs Vital Signs - 24 hr 08/31/23 14:15 08/31/23 14:17 08/31/23 14:55 Temperature 36.5 C Temperature Source Temporal Artery Scan Pulse Rate 69 98 H Pulse Rhythm Regular Respiratory Rate 18 Respiratory Effort / Characteristics Non-Labored Spontaneous Respiratory Depth Normal Respiratory Pattern Regular Blood Pressure 160/93 H Blood Pressure Mean 115 Blood Pressure Position Sitting Pulse Oximetry 96 94 94 Oxygen Delivery Method Room Air Room Air Room Air Sepsis Recent Fever Within 48 Hours No Sepsis New/Unexplained Change in Mental Status No Sepsis Action Taken by Nursing No Action Required 08/31/23 16:23 Temperature Temperature Source Pulse Rate 59 L Pulse Rhythm Respiratory Rate Respiratory Effort / Characteristics Respiratory Depth Respiratory Pattern Blood Pressure Blood Pressure Mean Blood Pressure Position Pulse Oximetry Oxygen Delivery Method Sepsis Recent Fever Within 48 Hours Sepsis New/Unexplained Change in Mental Status Sepsis Action Taken by Nursing Laboratory Data 08/31/23 14:22 08/31/23 14:22 Lab Results 08/31/23 Range/Units 14:22 WBC 10.69 (4.8-10.8) K/ul RBC 4.28 (4.20-5.40) M/uL Hgb 13.0 (12.0-16.0) g/dl Hct 39.8 (37.0-47.0) % MCV 93.0 (80.0-100.0) fL MCH 30.4 (25.0-34.0) pg MCHC 32.7 (32.0-36.0) g/dL RDW Std Deviation 47.7 H (36.4-46.3) fL RDW Coeff of Ashok 14.2 (11.5-14.5) % Plt Count 256 (130-400) K/uL MPV 11.1 (9.4-12.4) fL Immature Gran % (Auto) 0.5 % Neut % (Auto) 67.5 % Lymph % (Auto) 18.2 % [place] % (Auto) 8.6 % Eos % (Auto) 4.5 % Baso % (Auto) 0.7 % Neut # (Auto) 7.21 H (1.40-6.50) K/uL Lymph # (Auto) 1.95 (1.20-3.40) K/uL [place] # (Auto) 0.92 H (0.11-0.59) K/uL Eos # (Auto) 0.48 (0.00-0.50) K/uL Baso # (Auto) 0.08 (0.00-0.20) K/uL Immature Gran # (Auto) 0.05 (0.01-0.20) K/uL PT 10.5 (9.0-12.0) Seconds INR 1.0 (0.9-1.1) APTT 28 (21-31) Seconds PTT Ratio 1.0 Sodium 140 (136-145) mmol/L Potassium 4.2 (3.5-5.1) mmol/L Chloride 108 H (98-107) mmol/L Carbon Dioxide 26 (21-32) mmol/L Anion Gap 6 (3-11) BUN 13 (6-23) mg/dl Creatinine 0.73 (0.6-1.2) mg/dl Est Cr Clr Drug Dosing 65.7 ml/min Est GFR ( Amer) 97.4 ml/min Est GFR (Non-Af Amer) 84.0 ml/min BUN/Creatinine Ratio 17.8 (10-20) Glucose 84 (70-99(Fasting)) mg/dl Calcium 9.3 (8.6-10.3) mg/dl Total Bilirubin 0.5 (0.2-1.0) mg/dl AST 15 (13-39) U/L ALT 20 (7-52) U/L Alkaline Phosphatase 76 (34-104) U/L Troponin I High Sens 3.2 (0-14) pg/ml Total Protein 7.1 (6.0-8.3) gm/dl Albumin 4.7 (3.4-5.0) gm/dl Globulin 2.4 L (2.5-4.0) gm/dl Albumin/Globulin Ratio 2.0 (0.9-2) Lipase 13 (11-82) U/L Administered Medications Discontinued Medications Aspirin (Aspirin Chew 324 Mg) 324 mg PO NOW STA Stop: 08/31/23 14:18 Last Admin: 08/31/23 14:24 Dose: 324 mg Documented By: ANGEL Imaging Data Radiologist's Impression: Chest X-Ray 08/31/23 14:17 XR chest 1V portable HISTORY: 67 years-old Female chest heaviness chest pain COMPARISON: CTA chest 01/10/2023 TECHNIQUE: AP view of the chest FINDINGS: Cholecystectomy. Cardiomediastinal and hilar silhouettes are within normal limits. No pneumothorax, pleural effusion or airspace consolidation. Bones appear grossly intact. IMPRESSION: No acute process. ACT 112: Negative or not required by law. The above report was generated using voice recognition software. It may contain grammatical, syntax or spelling errors. Electronically signed by: Prashanth Quinn M.D. 08/31/2023 3:20 PM Discharge Plan Visit Data Chief Complaint: Chest Pain Stated Complaint: CHEST PAIN, REF BY DOC, SOB ED Provider: Olman Bee Discharge Problem: Atypical chest pain, History of coronary artery disease Patient Disposition: Being Evaluated by Hospitalist Forms Stand Alone Forms: Counts Include [facility] Prescriptions Prescriptions: No Action omeprazole 20 mg capsule,delayed release(DR/EC) 20 mg PO DAILY coenzyme Q10 [Co Q-10] 100 mg capsule 100 mg PO DAILY AirDuo Digihaler 232-14 mcg/actuation aero powdr breath act w/sensor 1 inh inhalation BID isosorbide mononitrate [Imdur] PO ezetimibe [Zetia] PO mecobalamin (vitamin B12) 2,500 mcg tablet,chewable 2,500 mcg PO DAILY aspirin 81 mg tablet,delayed release (DR/EC) 81 mg PO QPM clonidine HCl 0.1 mg Tablet 0.1 mg PO BID PRN (Reason: for SBP > 165 mmHg or DBP > 95 mmHg) Qty: 60 0RF labetalol 100 mg Tablet 50 mg PO BID Qty: 30 0RF nitroglycerin [Nitrostat] 0.4 mg Tablet, Sublingual 0.4 mg sublingual UD PRN (Reason: chest pain) Qty: 30 0RF Referrals Referrals: Aldo Lam DO [Primary Care Provider] -
[2023-08-31 15:33] LABS: Albumin Level 4.7 gm/dl (3.4-5.0); Bilirubin,Total 0.5 mg/dl (0.2-1.0); Calcium 9.3 mg/dl (8.6-10.3); Potassium 4.2 mmol/L (3.5-5.1)
[2023-08-31 15:39] LABS: BUN Creatinine Ratio 17.8 (10-20); Creatinine Clr Calc Pharmacy 65.7 ml/min; Est GFR (African American) 97.4 ml/min; Globulin 2.4 gm/dl (2.5-4.0); Total Protein 7.1 gm/dl (6.0-8.3)
[2023-08-31 15:42] LABS: Troponin I High Sensitivity 3.2 pg/ml (0-14)
--- NOTE | 2023-08-31 16:53 | History & Physical Report ---
Date of Service August 31, 2023 Assessment & Plan (1) Atypical chest pain: (2) History of coronary artery disease: (3) S/P right coronary artery (RCA) stent placement: (4) COPD (chronic obstructive pulmonary disease): (5) H/O gastroesophageal reflux (GERD): Plan This is a 67-year-old female who has a significant past medical history of CAD with history of RCA stent placement, HTN, HLD, COPD, history of tobacco abuse, statin intolerance and GERD who presents to ED secondary to chest pain x 1 day. Atypical chest pain CAD with history of RCA stent in 2020 Admit to PCU Chest pressure seemed to improve with nitro, but she states it made, "her heart jump out of her chest." Repeat troponin and cycle Repeat echocardiogram Lipid Panel, A1c in a.m. Chest CTA: Negative for PE she is on PPI, doubt GI related she relates increase stress with younger sisters being Ill Had nuclear stress test in December that was negative She is on ASA, labetalol, she is statin intolerant received full dose ASA in ED NPO after midnight in event of procedure HTN stable in ED continue labetalol and monitor closely Pt reports recent increase in labetalol HLD continue zetia uncontrolled per cards, but statin intolerant COPD no acute exac continue advair GERD chronic, stable continue PPI DVT ppx: SQ lovenox Pt was seen and examined in collaboration with Dr. Moses, please see addendum A total of 76 minutes was spent coordinating, documenting, and providing care for this patient excluding time spent in the performance of separately billed services. This included personally viewing all current laboratories and imaging studies, medication reconciliation, outpatient chart review, and discussion with specialists. History of Present Illness Chief Complaint: Chest pain x 1 day Primary Care Provider: Aldo Lam, This is a 67-year-old female who has a significant past medical history of CAD with history of RCA stent placement, HTN, HLD, COPD, history of tobacco abuse, statin intolerance and GERD who presents to ED secondary to chest pain x 1 day. Of significance she follows with [facility] cardiology. She last underwent a stress echocardiogram in December 2022 which was not suggestive of ischemia. Resting echo revealed an EF of 65 to 70%, otherwise no acute abnormality. Her outpatient cardiology records were reviewed. Her is at bedside who also helps elicit history. She states last evening she started noticing left-sided chest pressure that would come and go. It would be made worse with exertion. She would also experience shortness of breath with this as well. She denies any change with position. When taking a deep breath she feels her chest is tight. She is not able to reproduce her symptoms. She states, "it is not a pain, but feels like somebody is pushing on my chest and on my back and she also feels that the pressure goes straight through her back." She does have off-and-on lower extremity swelling but feels this is not unusual for her. She denies any recent significant travel or history of blood clots. She denies any lightheadedness, dizziness, diaphoresis, nausea, vomiting or hemoptysis with these events. She states the symptoms mimic whenever she required a stent to her coronary artery. Up until last night she had been doing very well. She denies any recent illness. She does have a significant amount of stress in her life with her 2 younger sisters suffering from medical illnesses, but she does not feel her stress is more so than usual. She denies any fever, chills, sweats, lightheadedness, dizziness, nausea, vomit, abdominal pain, change in bowel or urinary habits. She states her outpatient PCP has been working with her blood pressure medication and she recently had it increased and she is taking 50 mg in the morning and 100 mg in the evening of labetalol. Allergies Allergy/AdvReac Type Severity Reaction Status Date / Time Aminoglycosides Allergy Mild EYE BECAME Verified 08/31/23 16:59 RED,SWOLLEN WITH OPTH IDA gentamicin Allergy Mild EYE BECAME Verified 08/31/23 16:59 RED,SWOLLEN WITH OPTH IDA atorvastatin AdvReac Muscle Pain Verified 08/31/23 17:00 Home Medications Medication Instructions Recorded Confirmed Type omeprazole 20 mg capsule,delayed 20 mg PO DAILY 03/29/22 08/31/23 History release aspirin 81 mg tablet,delayed 81 mg PO QPM 01/10/23 08/31/23 History release nitroglycerin 0.4 mg sublingual 0.4 mg sublingual UD PRN chest 01/12/23 08/31/23 Rx tablet (Nitrostat) pain #30 tabs mecobalamin (vitamin B12) 2,500 2,500 mcg PO DAILY 02/15/23 08/31/23 History mcg chewable tablet fluticasone 232mcg-salmeterol 1 inh inhalation BID 04/07/23 08/31/23 History 14mcg/actuation breath act,powder sensor (AirDuo Digihaler) ezetimibe 10 mg tablet 10 mg PO DAILY 08/31/23 08/31/23 History garlic 500 mg capsule 500 mg PO BID 08/31/23 08/31/23 History labetalol 100 mg tablet 50 mg PO QAM 08/31/23 08/31/23 History labetalol 100 mg tablet 100 mg PO HS 08/31/23 08/31/23 History Past Med/Surg History Medical History CAD (coronary artery disease) No remaining occlusive disease after RCA stent 2020 Sensorineural hearing loss of both ears Conductive hearing loss of both ears COPD (chronic obstructive pulmonary disease) H/O gastroesophageal reflux (GERD) Surgical History History of cholecystectomy History of repair of rotator cuff History of hysterectomy History of lithotripsy Family History Father Cancer Hearing loss Hypertension Heart disease Mother Hypertension Heart disease Sister Asthma Other No family history of allergies No family history of bleeding disorder Denies family history of Stroke Social History Smoking Status: Former smoker Tobacco Type: Cigarettes packs per day: 1; Cigarettes Per Day: x 25-30 years, quit in 1981; Second Hand Exposure: No; Do You Dip or Chew Tobacco: No; Tobacco Cessation Education Requested by Patient: No Hx Alcohol Use: No Hx Substance Use: No Preferred Language: Cantonese English Communication Ability: Effective Draw Off Worker Required: No Beliefs That Will Affect Care: None marital status: / Current Living Situation: Alone Current Living Situation Comment: Son and daughter in law current occupational status: retired How many Children do You have: 2 Other Information That Helps Us Care for You: No Feels Safe at Home: Yes Safety Concerns: Feels Safe At This Time Assistive Devices: None Review of Systems Review of Systems: All systems reviewed & are unremarkable except as noted in HPI & below Physical Exam Physical Exam: Constitutional: WD/WN, vitals as above, NAD, sitting up in bed, pleasant, conversing easily Head: Normocephalic, Atraumatic Eyes: PERRL, conjunctivae normal, anicteric sclerae ENMT: external ear and nose normal, oropharynx normal Neck: trachea midline, no thyromegaly normal visual inspection Respiratory: normal respiratory effort, lungs clear to auscultation, no wheeze, rales, rhonchi. Normal insp/exp effort, no accessory muscle use Cardiovascular: RRR, no murmur, Trace lower ext edema Vessels: no JVD or carotid bruit Chest: normal inspection of chest Abdomen: normal bowel sounds, soft, nontender, no hepatosplenomegaly Musculoskeletal: no cyanosis or clubbing, extremities motor strength 5/5 Skin: no rashes, warm and dry normal turgor Neurologic: PERRL, EOMI, accommodation nl, no face palsy, no dysarthria CN's II-XI intact bilaterally and moves all extremities Psychiatric: A+Ox3, euthymic affect Lymphatic: no cervical or axillary lymphadenopathy : deferred Results & Data Results & Data Vital Signs (Past 12 Hours) Vital Signs Temp Pulse Resp BP Pulse Ox O2 Del Method 08/31/23 16:23 59 L 08/31/23 14:55 94 Room Air 08/31/23 14:17 98 H 94 Room Air 08/31/23 14:15 36.5 C 69 18 160/93 H 96 Room Air Diagnostic Findings Chest X-Ray 08/31/23 14:17 XR chest 1V portable HISTORY: 67 years-old Female chest heaviness chest pain COMPARISON: CTA chest 01/10/2023 TECHNIQUE: AP view of the chest FINDINGS: Cholecystectomy. Cardiomediastinal and hilar silhouettes are within normal limits. No pneumothorax, pleural effusion or airspace consolidation. Bones appear grossly intact. IMPRESSION: No acute process. ACT 112: Negative or not required by law. The above report was generated using voice recognition software. It may contain grammatical, syntax or spelling errors. Electronically signed by: Prashanth Quinn M.D. 08/31/2023 3:20 PM Medications Administered Medication List Discontinued Medications Aspirin (Aspirin Chew 324 Mg) 324 mg PO NOW STA Stop: 08/31/23 14:18 Last Admin: 08/31/23 14:24 Dose: 324 mg Documented By: ANGEL ECG Additional Comments: I have independently reviewed and interpreted patient's admitting EKG which revealed: NSR, 65 bpm, QTC 436ms, no st or t wave change COVID-19 Results Results COVID-19 Adm Lab Results: RBC 3.94 M/uL (4.20-5.40) L 09/01/23 WBC 8.61 K/ul (4.8-10.8) 09/01/23 Hgb 12.1 g/dl (12.0-16.0) 09/01/23 Hct 35.8 % (37.0-47.0) L 09/01/23 Plt Count 235 K/uL (130-400) 09/01/23 Neutrophils (%) (Auto) 62.3 % 09/01/23 Lymphocytes (%) (Auto) 20.6 % 09/01/23 Monocytes # (Auto) 0.88 K/uL (0.11-0.59) H 09/01/23 Eosinophils # (Auto) 0.52 K/uL (0.00-0.50) H 09/01/23 Immature Granulocyte % (Auto) 0.2 % 09/01/23 Neutrophils # (Auto) 5.36 K/uL (1.40-6.50) 09/01/23 Lymphocytes # (Auto) 1.77 K/uL (1.20-3.40) 09/01/23 Monocytes # (Auto) 0.88 K/uL (0.11-0.59) H 09/01/23 Eosinophils # (Auto) 0.52 K/uL (0.00-0.50) H 09/01/23 Basophils # (Auto) 0.06 K/uL (0.00-0.20) 09/01/23 Immature Granulocyte # (Auto) 0.02 K/uL (0.01-0.20) 4 Na 140 mmol/L (136-145) 09/01/23 K 4.2 mmol/L (3.5-5.1) 09/01/23 Cl 109 mmol/L (98-107) H 09/01/23 CO2 25 mmol/L (21-32) 09/01/23 Anion Gap 6 (3-11) 09/01/23 BUN 14 mg/dl (6-23) 09/01/23 Creatinine 0.69 mg/dl (0.6-1.2) 09/01/23 BUN/Creatinine Ratio 20.3 (10-20) H 09/01/23 Glucose Level 115 mg/dl (70-99(Fasting)) H 09/01/23 Ca 8.7 mg/dl (8.6-10.3) 09/01/23 Total Bilirubin 0.3 mg/dl (0.2-1.0) 09/01/23 AST/SGOT 13 U/L (13-39) 09/01/23 ALT/SGPT 15 U/L (7-52) 09/01/23 Alkaline Phosphatase 72 U/L (34-104) 09/01/23 Total Protein 6.0 gm/dl (6.0-8.3) 09/01/23 Albumin 4.0 gm/dl (3.4-5.0) 09/01/23 Globulin 2.0 gm/dl (2.5-4.0) L 09/01/23 Albumin/Globulin Ratio 2.0 (0.9-2) 09/01/23 PTT 28 Seconds (21-31) 08/31/23 INR 1.0 (0.9-1.1) 08/31/23 Triglycerides Level 99 mg/dl (0-150) 09/01/23 Chest X-Ray 08/31/23 Code Status & VTE Plan Code Status FULL CODE VTE Prophylaxis Plan VTE Prophylaxis will be ordered: Yes Supervising Physician Co-Signing Physician Notes Pt was seen and examined. Agreed with An GRAFF, exam, assessment and plan. 67-year-old female with past medical history of CAD with history of RCA stent placement, HTN, HLD, COPD, history of tobacco abuse, statin intolerance and GERD who presents to ED secondary to chest pain. Pt said that chest pain started last night where she felt a pressure in her hear that come and go. Chest pain non radiating, worsening with exertion and associated with SOB. denies any fever, chills, sweats, lightheadedness, dizziness, nausea, vomit, abdominal pain, change in bowel or urinary habits. She had stress test last December that was negative for ischemia. Troponin on admission negative, EKG showed no acute ischemic changes. CTA chest negative for PE. Nitro given in the ER that helped with the chest pain. Will repeat troponin. Will get a resting Echo. Continue aspirin and bblocker. will repeat EKG in am. Cardiology consult. NPO after midnight in the event of any cardiac intervention. MD Aurelia
[2023-08-31] MEDS: NITROGLYCERIN SL 0.4 MG/TAB TAB SL STA (17:16)
[2023-08-31] MEDS: OPTIRAY 320 125ml IV ONE (18:06)
[2023-08-31] MEDS ORDERED: POLYETHYLENE (MIRALAX) 17 GM PACK PO PRN (18:40)
[2023-08-31] MEDS ORDERED: ALUMINUM/MAGNESIUM SUSP 30 ML UDC PO PRN (18:40)
[2023-08-31] MEDS ORDERED: MAGNESIUM HYDROXIDE SUSP 30 ML UDC PO PRN (18:40)
--- NOTE | 2023-08-31 18:53 | CT Scan Report ---
CT ANGIOGRAPHY OF THE CHEST, PULMONARY EMBOLUS PROTOCOL CLINICAL HISTORY: Chest pain and shortness of breath. Evaluate for pulmonary embolus or dissection. COMPARISON STUDY: Chest CT January 10, 2023. Chest radiograph performed earlier today. TECHNIQUE: Following IV administration of 115 mL of Optiray, helical axial images of the chest were o btained utilizing the pulmonary embolus protocol. Maximal intensity projections and sagittal and cor onal reformats were viewed on an independent 3D workstation. IV contrast was administered without co mplication. Automated exposure control was utilized for the study. A dose lowering technique was ut ilized adhering to the principles of ALARA. CT DOSE: 634.82 mGy.cm FINDINGS: There is no thoracic aortic dissection. Mild atherosclerotic plaque of the thoracic aorta is present. The heart is mildly enlarged. There is no pericardial effusion. No pulmonary emboli are i dentified. There is no thoracic lymphadenopathy. No pneumothorax or pleural effusion is present. Ther e is no consolidation to suggest pneumonia. Multifocal subpleural reticulation with cystic foci is si milar to prior CT. This may reflect emphysema with mild fibrotic change. Upper abdomen is unremarkabl e. No acute fractures within the bony thorax IMPRESSION: 1. No pulmonary emboli identified. 2. No acute intrathoracic findings. 3. No significant change in appearance of the chest since prior chest CT. ACT 112: Negative or not required by law. Electronically signed by: Kiran Beavers M.D. 08/31/2023 6:51 PM
[2023-08-31] MEDS: LABETALOL HCL 100 MG TAB PO SCH (20:03)
[2023-08-31] MEDS: ENOXAPARIN INJ 40 MG/0.4 ML SYR SQ SCH (20:03)
[2023-09-01 07:00] LABS: Basophils # (auto) 0.06 K/uL (0.00-0.20); Basophils % (auto) 0.7 %; Eosinophils # (auto) 0.52 K/uL (0.00-0.50); Hematocrit (blood only) 35.8 % (37.0-47.0); Hemoglobin 12.1 g/dl (12.0-16.0); Immature Granulocytes # (auto) 0.02 K/uL (0.01-0.20); Immature Granulocytes % (auto) 0.2 %; Lymphocytes # (auto) 1.77 K/uL (1.20-3.40); Lymphocytes % (auto) 20.6 %; Mean Corpuscular Hemoglobin 30.7 pg (25.0-34.0); Mean Corpuscular Hgb Conc 33.8 g/dL (32.0-36.0); Mean Corpuscular Volume 90.9 fL (80.0-100.0); Mean Platelet Volume 11.2 fL (9.4-12.4); Monocytes # (auto) 0.88 K/uL (0.11-0.59); Monocytes % (auto) 10.2 %; Neutrophils # (auto) 5.36 K/uL (1.40-6.50); Neutrophils % (auto) 62.3 %; Platelet Count 235 K/uL (130-400); RDW Standard Deviation 47.1 fL (36.4-46.3); Red Blood Count 3.94 M/uL (4.20-5.40); White Blood Count 8.61 K/ul (4.8-10.8)
[2023-09-01 07:18] LABS: BUN Creatinine Ratio 20.3 (10-20); Bilirubin,Total 0.3 mg/dl (0.2-1.0); Calcium 8.7 mg/dl (8.6-10.3); Chol HDL Ratio 3.1 (0-5); Creatinine Clr Calc Pharmacy 66.4 ml/min; Est GFR (African American) 102.9 ml/min; Est GFR (Non-African American) 88.8 ml/min; Magnesium 1.9 mg/dl (1.7-2.4); Potassium 4.2 mmol/L (3.5-5.1)
[2023-09-01 07:22] LABS: Troponin I High Sensitivity 3.4 pg/ml (0-14)
[2023-09-01 07:42] LABS: Estimated Average Glucose 114 mg/dl; Hemoglobin A1C 5.6 % (4.5-5.6)
[2023-09-01] MEDS: FLUTICASONE/VILANTEROL 100/25MCG 14 PUFFS/INHALER INH SCH (08:41)
[2023-09-01] MEDS: EZETIMIBE 10 MG TAB PO SCH (08:41)
[2023-09-01] MEDS: LABETALOL HCL 100 MG TAB PO SCH (08:42)
[2023-09-01] MEDS: PANTOprazole 40 MG TAB PO SCH (08:42)
--- NOTE | 2023-09-01 10:31 | Pre Anesthesia Assessment ---
Date of Service September 01, 2023 Pre Sedation Assessment Vital Signs Temp Pulse Pulse Resp BP BP Pulse Ox 09/01/23 07:42 36.6 C 60 17 122/69 96 09/01/23 03:15 36.5 C 66 20 103/66 95 08/31/23 23:47 36.6 C 75 20 110/58 L 96 08/31/23 23:01 70 08/31/23 19:44 36.3 C L 70 16 119/75 97 08/31/23 18:43 36.4 C L 66 16 151/74 H 96 08/31/23 17:30 66 12 95 08/31/23 17:30 103/65 08/31/23 17:14 164/85 H 08/31/23 17:14 59 L 22 97 08/31/23 17:00 137/97 08/31/23 17:00 59 L 13 97 08/31/23 16:30 135/79 08/31/23 16:30 56 L 14 97 08/31/23 16:23 59 L 08/31/23 16:00 56 L 10 L 97 08/31/23 16:00 143/68 H 08/31/23 15:31 152/75 H 08/31/23 15:31 60 18 97 08/31/23 14:55 94 08/31/23 14:17 98 H 94 08/31/23 14:15 36.5 C 69 18 160/93 H 96 O2 Del Method 09/01/23 07:42 Room Air 09/01/23 03:15 Room Air 08/31/23 23:47 Room Air 08/31/23 23:01 08/31/23 19:44 Room Air 08/31/23 18:43 Room Air 08/31/23 17:30 08/31/23 17:30 08/31/23 17:14 08/31/23 17:14 08/31/23 17:00 08/31/23 17:00 08/31/23 16:30 08/31/23 16:30 08/31/23 16:23 08/31/23 16:00 08/31/23 16:00 08/31/23 15:31 08/31/23 15:31 08/31/23 14:55 Room Air 08/31/23 14:17 Room Air 08/31/23 14:15 Room Air Cardiovascular RRR, no murmur, no edema Respiratory normal respiratory effort, lungs clear to auscultation Pre-Sedation Airway Assessment Smoking Status: Former smoker Hx Sleep Apnea: No Hx Difficult Intubation: No Mallampati Class: III ASA: ASA3 NPO Status Date of Last Intake of Fluids: 09/01/23 Time of Last Intake of Fluids: 08:45 Last Oral Intake of Fluids Comment: sips with meds Date of Last Intake of Solid Food: 09/01/23 Time of Last Intake of Solid Foods: 18:00 Procedure Planning Contraindications for Sedation: none Current Medications Reviewed: Yes Notes The planned sedation has been discussed with the patient. Informed Consent was obtained. I have identified the patient, determined the appropriateness of sedation and have assessed the patient immediately prior to the procedure. All medicine(s) and interventions are by my order.
--- NOTE | 2023-09-01 10:34 | Cardiology Consultation ---
Date of Consultation September 01, 2023 Assessment & Plan (1) Exertional angina: (2) CAD (coronary artery disease): (3) S/P right coronary artery (RCA) stent placement: (4) Dyslipidemia: (5) Hypertension: Plan ASSESSMENT/PLAN: 1. Angina: Her description is suggestive of worsening angina over the past few weeks. However, her high-sensitivity troponin is negative. Symptoms are reportedly the same as when she had PCI in the past. Therefore, recommend coronary angiography for definitive evaluation of her coronary arteries. Risk and benefits of the procedure were discussed with her in detail. She was made aware that CT surgery is not available at this facility. If she has recurrent pain, would start heparin drip. Continue aspirin. 2. CAD s/p RCA PCI: Current symptoms reminiscent of prior angina that resolved after PCI in 2020. Continue aspirin 81 mg daily. Continue lipid management. Recommend PCSK9 inhibitor as LDL was not optimized. This has been discussed with her in the past with other providers as well. Continue beta-devan. 3. Hypertension: Blood pressure well-controlled today. Continue home regimen. Consider DAVON inhibitor or ARB if further adjustment needed. 4. Dyslipidemia: Recommend PCSK9 inhibitor. She is intolerant to several st atin therapies in the past due to myalgias. PCSK9 inhibitor had been discussed in the past by other providers as well. Currently on Zetia. LDL not at goal. 5. Disposition: Cardiology will continue to follow. Plan of care communicated with primary hospitalist, Dr. Aldana. Upon discharge, follow-up with Dr. Rodriguez, her primary pricing intern. Highly complex medical issues. Thank you for allowing me to participate in the care of your patient. Please call for any other questions or concerns. Sincerely, Hilario Clifford M.D. History of Present Illness Reason for Consultation: chest pain Requesting Physician: An Alejo PA-C Attending Physician: Perico Aldana MD History of Present Illness Ms. Paez is a very pleasant 67-year-old female with a history significant for CAD s/p RCA PCI, hypertension, dyslipidemia, COPD, and GERD. Her primary pricing intern is Dr. Rodriguez. For the past 3 weeks or so, she has had increased dyspnea on exertion with her usual activities such as shopping. She especially has noted it with stairs. She also experiences intermittent heaviness in her left chest while climbing stairs. Because of the symptoms, she has had to slow down with exertion. She was admitted on 08/31/2023 with left-sided chest pressure. It began to worsen and occur at rest on 08/30/2023. She noticed that intermittently throughout the night. It would wake her up from sleep a few times and typically last for 15 to 20 minutes before spontaneously resolving. There was intermittent associated diaphoresis and typically she would feel short of breath with the discomfort. There was no radiation of the pain. She describes a discomfort as a pressure. On 08/31/2019 4 in the morning, it lasted for several hours but was much more mild and not nearly as severe. She went to her PCP for a scheduled blood pressure check and was sent to the emergency department. In the ER she had intermittent discomfort. Overnight she had intermittent discomfort. She recalls having a mild tightness this morning when she was washing up at the sink. Symptoms have been short-lived today. Otherwise, she denies orthopnea, other shortness of breath episodes, syncope, near syncope, palpitations, melena, hematochezia, hematuria, fevers, nausea, vomiting. She has had chronic and stable edema on occasion but none today. Her symptoms are the same that she experienced at the time of her PCI in 2020. She had felt well after the PCI until just the past few weeks with her progressively worsening symptoms. She had a stress test on 01/11/2023 while hospitalized with chest pain. She had a hypertensive response to exercise. It was interpreted as negative. She then went home and started to exercise on a treadmill but had to stop due to chest discomfort. She has been intolerant to several statin therapies due to myalgias. Review of systems: As above. Review of systems otherwise negative/unremarkable. Family history: No known premature CAD. Social history: She quit smoking over 20 years ago. Denies alcohol or drug abuse. Lives alone. x 1. x 1. 2 sons. 4 grandsons. 2 great-grandchildren (great grandson and great granddaughter). She was unaccompanied in her hospital room. Allergies Allergy/AdvReac Type Severity Reaction Status Date / Time Aminoglycosides Allergy Mild EYE BECAME Verified 08/31/23 16:59 RED,SWOLLEN WITH OPTH IDA gentamicin Allergy Mild EYE BECAME Verified 08/31/23 16:59 RED,SWOLLEN WITH OPTH IDA atorvastatin AdvReac Muscle Pain Verified 08/31/23 17:00 Home Medications Medication Instructions Recorded Confirmed Type omeprazole 20 mg capsule,delayed 20 mg PO DAILY 03/29/22 08/31/23 History release aspirin 81 mg tablet,delayed 81 mg PO QPM 01/10/23 08/31/23 History release nitroglycerin 0.4 mg sublingual 0.4 mg sublingual UD PRN chest 01/12/23 08/31/23 Rx tablet (Nitrostat) pain #30 tabs mecobalamin (vitamin B12) 2,500 2,500 mcg PO DAILY 02/15/23 08/31/23 History mcg chewable tablet fluticasone 232mcg-salmeterol 1 inh inhalation BID 04/07/23 08/31/23 History 14mcg/actuation breath act,powder sensor (AirDuo Digihaler) ezetimibe 10 mg tablet 10 mg PO DAILY 08/31/23 08/31/23 History garlic 500 mg capsule 500 mg PO BID 08/31/23 08/31/23 History labetalol 100 mg tablet 50 mg PO QAM 08/31/23 08/31/23 History labetalol 100 mg tablet 100 mg PO HS 08/31/23 08/31/23 History Patient History Medical History Labile hypertension Dyslipidemia CAD (coronary artery disease) No remaining occlusive disease after RCA stent 2020 Sensorineural hearing loss of both ears Conductive hearing loss of both ears COPD (chronic obstructive pulmonary disease) H/O gastroesophageal reflux (GERD) Surgical History (Updated 09/01/23 @ 10:53 by Nimesh Clifford MD) S/P right coronary artery (RCA) stent placement (2020) History of cholecystectomy History of repair of rotator cuff History of hysterectomy History of lithotripsy Family History Father Cancer Hearing loss Hypertension Heart disease Mother Hypertension Heart disease Sister Asthma Other No family history of allergies No family history of bleeding disorder Denies family history of Stroke Social History Smoking Status: Former smoker Tobacco Type: Cigarettes packs per day: 1; Cigarettes Per Day: x 25-30 years, quit in 1981; Second Hand Exposure: No; Do You Dip or Chew Tobacco: No; Tobacco Cessation Education Requested by Patient: No Hx Alcohol Use: No Hx Substance Use: No Preferred Language: Cantonese Lao Communication Ability: Effective Metal Riveter Required: No Beliefs That Will Affect Care: None marital status: / Current Living Situation: Alone Current Living Situation Comment: Son and daughter in law current occupational status: retired How many Children do You have: 2 Other Information That Helps Us Care for You: No Feels Safe at Home: Yes Safety Concerns: Feels Safe At This Time Assistive Devices: None Physical Exam Physical Exam: Gen.: No acute distress. Alert and oriented. HEENT: Anicteric sclera. Neck: No JVD. No bruits. Normal carotid upstrokes bilaterally. Cardiac: No ventricular heave. Regular. Normal S1-S2. No murmurs, rubs, or gallops. Pulmonary: Clear to auscultation bilaterally without wheezes, rales, or rhonchi. Abdomen: Soft, nontender, nondistended, with normoactive bowel sounds. No bruits noted. Extremities: 2+ radial pulses bilaterally. 2+ posterior tibialis pulses bilaterally. No edema or cyanosis. Psychiatric: Affect appears appropriate. Chest: Nontender. Results & Data Vital Signs (Past 12 Hours) Vital Signs Temp Pulse Pulse Resp BP Pulse Ox O2 Del Method 09/01/23 07:42 36.6 C 60 17 122/69 96 Room Air 09/01/23 03:15 36.5 C 66 20 103/66 95 Room Air 08/31/23 23:47 36.6 C 75 20 110/58 L 96 Room Air 08/31/23 23:01 70 Laboratory Results Laboratory Results - last 24 hr 08/31/23 08/31/23 08/31/23 14:22 17:14 23:00 WBC 10.69 RBC 4.28 Hgb 13.0 Hct 39.8 MCV 93.0 MCH 30.4 MCHC 32.7 RDW Std Deviation 47.7 H RDW Coeff of Ashok 14.2 Plt Count 256 MPV 11.1 Immature Gran % (Auto) 0.5 Neut % (Auto) 67.5 Lymph % (Auto) 18.2 [place] % (Auto) 8.6 Eos % (Auto) 4.5 Baso % (Auto) 0.7 Neut # (Auto) 7.21 H Lymph # (Auto) 1.95 [place] # (Auto) 0.92 H Eos # (Auto) 0.48 Baso # (Auto) 0.08 Immature Gran # (Auto) 0.05 PT 10.5 INR 1.0 APTT 28 PTT Ratio 1.0 Sodium 140 Potassium 4.2 Chloride 108 H Carbon Dioxide 26 Anion Gap 6 BUN 13 Creatinine 0.73 Est Cr Clr Drug Dosing 65.7 Est GFR ( Amer) 97.4 Est GFR (Non-Af Amer) 84.0 BUN/Creatinine Ratio 17.8 Glucose 84 Estimat Average Glucose Hemoglobin A1c Calcium 9.3 Magnesium Total Bilirubin 0.5 AST 15 ALT 20 Alkaline Phosphatase 76 Troponin I High Sens 3.2 3.6 3.5 Total Protein 7.1 Albumin 4.7 Globulin 2.4 L Albumin/Globulin Ratio 2.0 Triglycerides Cholesterol LDL Cholesterol, Calc VLDL Cholesterol, Calc HDL Cholesterol Cholesterol/HDL Ratio Lipase 13 09/01/23 06:11 WBC 8.61 RBC 3.94 L Hgb 12.1 Hct 35.8 L MCV 90.9 MCH 30.7 MCHC 33.8 RDW Std Deviation 47.1 H RDW Coeff of Ashok 14.0 Plt Count 235 MPV 11.2 Immature Gran % (Auto) 0.2 Neut % (Auto) 62.3 Lymph % (Auto) 20.6 [place] % (Auto) 10.2 Eos % (Auto) 6.0 Baso % (Auto) 0.7 Neut # (Auto) 5.36 Lymph # (Auto) 1.77 [place] # (Auto) 0.88 H Eos # (Auto) 0.52 H Baso # (Auto) 0.06 Immature Gran # (Auto) 0.02 PT INR APTT PTT Ratio Sodium 140 Potassium 4.2 Chloride 109 H Carbon Dioxide 25 Anion Gap 6 BUN 14 Creatinine 0.69 Est Cr Clr Drug Dosing 66.4 Est GFR ( Amer) 102.9 Est GFR (Non-Af Amer) 88.8 BUN/Creatinine Ratio 20.3 H Glucose 115 H Estimat Average Glucose 114 Hemoglobin A1c 5.6 Calcium 8.7 Magnesium 1.9 Total Bilirubin 0.3 AST 13 ALT 15 Alkaline Phosphatase 72 Troponin I High Sens 3.4 Total Protein 6.0 Albumin 4.0 Globulin 2.0 L Albumin/Globulin Ratio 2.0 Triglycerides 99 Cholesterol 156 LDL Cholesterol, Calc 85 VLDL Cholesterol, Calc 20 HDL Cholesterol 51 Cholesterol/HDL Ratio 3.1 Lipase Diagnostic Findings Cardiac Cath 04/19/21: D1 Ostial 50%. Mid RCA 70%. PCI of mid RCA with single drug-eluting stent (3.5 x 18 mm Hardy; postdilated with 3.75 NC). ECG personally reviewed: ECG 08/31/2023 1422: Sinus 65 bpm. ECG 09/01/2023 at 5:16 AM: Sinus 68 bpm. Telemetry personally reviewed: Sinus rhythm. Echo 09/01/2023: Normal LV size, wall motion, systolic function. EF 60 to 65%. No significant valvular abnormalities. Normal RVSP. Labs reviewed and notable for normal troponin, normal renal function, normal potassium, normal hemoglobin, slightly elevated LDL in the setting of known CAD, normal transaminase levels. CTA chest 08/31/2023: No PE. No acute intrathoracic findings per radiology. History and physical report reviewed. Medications Administered Current Inpatient Medications Acetaminophen (Acetaminophen 325 Mg Tab) 650 mg PO Q4H PRN PRN Reason: Pain or Fever Stop: 09/30/23 18:39 Al Hydrox/Mg Hydrox/Simethicone (Aluminum/Magnesium Susp 30 Ml Udc) 15 ml PO Q4H PRN PRN Reason: Dyspepsia Stop: 09/30/23 18:39 Aspirin (Aspirin 81 Mg Ectab) 81 mg PO QPM WES Stop: 10/01/23 20:59 Ezetimibe (Ezetimibe 10 Mg Tab) 10 mg PO DAILY WSE Stop: 10/01/23 08:59 Last Admin: 09/01/23 08:41 Dose: 10 mg Enoxaparin Sodium (Enoxaparin Inj 40 Mg/0.4 Ml Syr) 40 mg SQ HS WES Stop: 09/30/23 20:59 Last Admin: 08/31/23 20:03 Dose: 40 mg Fluticasone/Vilanterol (Fluticasone/Vilanterol 100/25mcg 14 Puffs/Inhaler) 1 puffs INH DAILY WES Stop: 10/01/23 08:59 Last Admin: 09/01/23 08:41 Dose: 1 puffs Labetalol HCl (Labetalol Hcl 100 Mg Tab) 50 mg PO QAM WES Stop: 10/01/23 08:59 Last Admin: 09/01/23 08:42 Dose: 50 mg Labetalol HCl (Labetalol Hcl 100 Mg Tab) 100 mg PO HS WES Stop: 09/30/23 20:59 Last Admin: 08/31/23 20:03 Dose: 100 mg Magnesium Hydroxide (Magnesium Hydroxide Susp 30 Ml Udc) 30 ml PO Q12H PRN PRN Reason: Constipation Stop: 09/30/23 18:39 Ondansetron HCl (Ondansetron Inj 2 Mg/Ml 2 Ml Vial) 4 mg IV Q6H PRN PRN Reason: Nausea Stop: 09/30/23 18:39 Pantoprazole Sodium (Pantoprazole 40 Mg Tab) 40 mg PO DAILY WES Stop: 10/01/23 08:59 Last Admin: 09/01/23 08:42 Dose: 40 mg Polyethylene Glycol (Polyethylene (Miralax) 17 Gm Pack) 17 gm PO DAILY PRN PRN Reason: Constipation Stop: 09/30/23 18:39 PG Care Time/CCT Total # of Minutes Spent Total Time Spent with Patient: Total time spent is greater than 50% in coordination of care (as documented) at patient's floor/unit and/or counseling patient: Coding Level of Care Code 25729 INT INP/OBS CARE 3/75MIN Diagnoses Exertional angina I20.89 CAD (coronary artery disease) I25.10 S/P right coronary artery (RCA) stent placement Z95.5 Dyslipidemia E78.5 Hypertension I10
--- NOTE | 2023-09-01 14:08 | XCELERA ---
[id number]
--- NOTE | 2023-09-01 14:25 | Hospitalist Progress Note ---
Date of Service September 01, 2023 Assessment & Plan (1) Atypical chest pain: (2) History of coronary artery disease: (3) S/P right coronary artery (RCA) stent placement: (4) COPD (chronic obstructive pulmonary disease): (5) H/O gastroesophageal reflux (GERD): Plan This is a 67-year-old female who has a significant past medical history of CAD with history of RCA stent placement, HTN, HLD, COPD, history of tobacco abuse, statin intolerance and GERD who presents to ED secondary to chest pain x 1 day. Angina CAD with history of RCA stent in 2020 Patient is a 67-year-old female with possible history of RCA stent 2020 who presents with chest pain on exertion High sensitive troponin negative Chest CTA on admission do not reveal any PE Echocardiogram shows EF of 60 to 65%; no significant valve abnormalities Currently on aspirin; continue Patient to undergo left cardiac cath today by cardiology. History of hyperlipidemia; not under statin. She will need started on PCSK9 inhibitor as outpatient. Will follow-up on recommendation by cardiology after cardiac cath HTN continue labetalol and monitor closely Pt reports recent increase in labetalol HLD continue zetia uncontrolled per cards, but statin intolerant Will need to be on PCSK9 inhibitor as outpatient. COPD no acute exac continue advair GERD chronic, stable continue PPI DVT ppx: SQ lovenox Please note the above document was generated using voice recognition software. It may contain grammatical, syntax or spelling errors. Any formal questions or concerns about the content, text or information contained within the body of this dictation should be directly addressed to the provider for clarification. Admission and Anticipated Discharge Date Admission Date: August 31, 2023 Subjective Patient seen and examined at bedside. Comfortable; not in distress. Denies fever, chills, chest pain, shortness of breath, abdominal pain or urinary symptoms. No significant overnight events She reports that the chest pain is not present at the moment. It occurs when she is doing ecd. Review of Systems Review of Systems: All systems reviewed & are unremarkable except as noted in Subjective Physical Exam Physical Exam: Constitutional: WD/WN, vitals as above, NAD, sitting up in bed, pleasant, conversing easily Respiratory: normal respiratory effort, lungs clear to auscultation, no wheeze, rales, rhonchi. Normal insp/exp effort, no accessory muscle use Cardiovascular: RRR, no murmur, Trace lower ext edema Vessels: no JVD or carotid bruit Chest: normal inspection of chest Abdomen: normal bowel sounds, soft, nontender, no hepatosplenomegaly Musculoskeletal: no cyanosis or clubbing, extremities motor strength 5/5 Skin: no rashes, warm and dry normal turgor Neurologic: PERRL, EOMI, accommodation nl, no face palsy, no dysarthria CN's II-XI intact bilaterally and moves all extremities Psychiatric: A+Ox3, euthymic affect Lymphatic: no cervical or axillary lymphadenopathy : deferred Results & Data Results & Data Vital Signs (Past 12 Hours) Vital Signs Temp Pulse Resp BP Pulse Ox O2 Del Method 09/01/23 13:58 61 14 152/65 H 96 Room Air 09/01/23 12:03 36.6 C 59 L 17 132/78 95 Room Air 09/01/23 07:42 36.6 C 60 17 122/69 96 Room Air 09/01/23 03:15 36.5 C 66 20 103/66 95 Room Air
[2023-09-01] MEDS: HEPARIN (PORCINE) 1000 UNIT/ML 10 ML (CATH LAB USE ONLY) ONE (15:00)
[2023-09-01] MEDS: OPTIRAY 350 ONE (15:00)
[2023-09-01] MEDS: fentaNYL citrate PF 100 MCG/2 ML VIAL ONE (15:00)
[2023-09-01] MEDS: MIDAZOLAM HCL 1 MG/ML 2ML VIAL ONE (15:01)
[2023-09-01] MEDS: niCARdipine HCL INJ 2.5 MG/ML 10 ML AMP ONE (15:01)
[2023-09-01] MEDS: NITROGLYCERIN/D5W 100MCG/ML 20ML SYR ONE (15:01)
--- NOTE | 2023-09-01 15:10 | Cardiac Catheterization ---
[facility] Data: Credit Risk Management Director Cardiac Status Clinical evaluation leading to the procedure CAD Presenation: Unstable angina Anginal Classification: CCS IV Heart Failure: No Cardiogenic Shock within 24 Hours: No Cardiac Arrest within 24 Hours: No Imaging Studies Past 6 Months: Yes Stress Studies Past 6 Months: No Coronary Anatomy Dominant: Co-Dominant Diagnostic Physicians Name: Nimesh Clifford MD Closure Device Percutaneous Entry Location: Radial Closure Device: Radial Band Recommendations: Management Recommendatons Cardiac Cath Procedure Full Procedure Date September 01, 2023 Pre-Procedure Diagnosis Pre-Procedure Diagnosis: Angina and CAD AUC Score AUC Score: 7 Post-Procedure Diagnosis Post-Procedure Diagnosis: Mild CAD and Normal Intracardiac Pressures Procedure(s) Performed Procedure(s) Performed: Coronary Angiography and Left Heart Cath Display Designer Nimesh Clifford MD Apple Thinner(s) Cesar Estimated Blood Loss Estimated Blood Loss: < 20 Medication(s) Medication(s): Fentanyl, Heparin, Lidocaine 1%, Nicardipine and Versed Summary of Findings Procedures: 1. Coronary angiography 2. Left heart catheterization 3. Moderate sedation Indication: 67-year-old female with previous RCA PCI who has been experiencing symptoms concerning for angina reminiscent of her prior angina. Coronary angiography: 1. Left main: No significant CAD. 2. Left anterior descending: Ostial LAD 30%. D1 ostial 30%. Very small D2. 3. Circumflex: Appears to be codominant. No significant CAD within the circumflex, OM1, and very small caliber PDA. 4. Right coronary artery: Early mid RCA stent patent. Luminal irregularities within the mid RCA. Acute marginal originates from proximal RCA. PL and small PDA without significant CAD. Left heart catheterization: 1. No significant aortic stenosis. 2. LVEDP 17 mmHg. 3. Left ventriculography was not performed. Moderate sedation: 1. Sedation start time: 2:38 PM 2. Sedation end time: 2:55 PM Access: 1. Given previously documented difficulty with right radial arterial access, procedure was performed via the left radial artery without known complication. Impression: 1. Mild nonobstructive CAD. 2. Patent mid RCA stent. 3. Mildly elevated left-sided filling pressure. 4. No significant aortic stenosis. Plan: 1. Continue risk factor modification. 2. Defer to primary service to investigate for noncardiac chest pain. Hemodynamics Rest Ao:: 159/66 Final Ao: 154/64 LV: 163/4/17 Recommendations Recommendations: Management Recommendatons Specimens Specimens: None Radiation Exposure (mGy) 547 mGy. Fluoro time 2.8 min. Contrast (mls) 25 ml Procedural Complication(s) None Disposition PCU I attest to the content of the Intraoperative Record and any orders documented therein. Any exceptions are noted below. [facility] Card Cath Procedure Codes Cardiac Catheterization Procedure 1: Cardiovascular Cath Procedures: 57569 Coronaries and LHC (+/-LV) Moderate Sedation Procedure 1: Sedation/Anesthesia: 62298 Mod Sedation by the same physician;Init15 Min Child Age 5 & Up Procedure 2: Sedation/Anesthesia: 20318 Mod Sedation by the same physician; Ea [id number] Minutes PG Care Time/CCT Total # of Minutes Spent Total Time Spent with Patient: Total time spent is greater than 50% in coordination of care (as documented) at patient's floor/unit and/or counseling patient:
--- NOTE | 2023-09-01 15:19 | Post Anesthesia Assessment ---
Date of Service September 01, 2023 Post Sedation Assessment Vital Signs Temp Pulse Pulse Resp BP BP Pulse Ox 09/01/23 15:05 73 16 126/71 99 09/01/23 13:58 61 14 152/65 H 96 09/01/23 12:03 36.6 C 59 L 17 132/78 95 09/01/23 07:42 36.6 C 60 17 122/69 96 09/01/23 03:15 36.5 C 66 20 103/66 95 08/31/23 23:47 36.6 C 75 20 110/58 L 96 08/31/23 23:01 70 08/31/23 19:44 36.3 C L 70 16 119/75 97 08/31/23 18:43 36.4 C L 66 16 151/74 H 96 08/31/23 17:30 66 12 95 08/31/23 17:30 103/65 08/31/23 17:14 164/85 H 08/31/23 17:14 59 L 22 97 08/31/23 17:00 137/97 08/31/23 17:00 59 L 13 97 08/31/23 16:30 135/79 08/31/23 16:30 56 L 14 97 08/31/23 16:23 59 L 08/31/23 16:00 56 L 10 L 97 08/31/23 16:00 143/68 H 08/31/23 15:31 152/75 H 08/31/23 15:31 60 18 97 O2 Del Method 09/01/23 15:05 Room Air 09/01/23 13:58 Room Air 09/01/23 12:03 Room Air 09/01/23 07:42 Room Air 09/01/23 03:15 Room Air 08/31/23 23:47 Room Air 08/31/23 23:01 08/31/23 19:44 Room Air 08/31/23 18:43 Room Air 08/31/23 17:30 08/31/23 17:30 08/31/23 17:14 08/31/23 17:14 08/31/23 17:00 08/31/23 17:00 08/31/23 16:30 08/31/23 16:30 08/31/23 16:23 08/31/23 16:00 08/31/23 16:00 08/31/23 15:31 08/31/23 15:31 Recovery Score Activity: Moves 4 extremities Respiration: Deep Breath/Cough Circulation: +/-20% PreAnes Value Consciousness: Fully Awake Oxygen Saturation: > 92% On Room Air Post Anesthesia Score: 10 Discharge Sedation Level of Care: Fast Track Phase II Post Sedation Plan On clinical assessment, the patient appears to have tolerated the sedation without complications. Patient is recovering as anticipated. Patient will continue to be monitored by nursing and may be discharged when sedation discharge criteria are met per below protocol. Upon Completions of procedure up to 15 minutes continue every 5 minute vital signs and the P.A.R. score; then discharge to a Phase I or Fast Track to Phase II per the following guidelines: * Discharge Patient to appropriate Phase II area if PAR is 8 or greater or return to pre- procedure baseline. The post - procedure orders will be as directed. * If PAR score is less than 8 or not return to pre-procedure baseline then patient will follow Phase I monitoring till PAR is reached for Phase II. The Phase I may be done in procedure room or may call to secure a Phase I area. * If naloxone or flumazenil are used for reversal, hold in Phase I for continued monitoring from when last reversal dose was given for a minimum of 60 minutes or longer pending the nurse and/or physician discretion of patient condition before discharge to Phase II. Please call the Sedation Physician to re-evaluate and complete post-note for discharge to Phase II area. Do NOT discharge from procedure sedation or Phase 1 until post- sedation evaluation note is complete by procedure /sedation MD Sedation Discharge Instructions to be given to the patient at discharge to home.
--- NOTE | 2023-09-01 15:31 | Discharge Summary ---
Date of Service September 01, 2023 Admission HPI Per Admitting Provider This is a 67-year-old female who has a significant past medical history of CAD with history of RCA stent placement, HTN, HLD, COPD, history of tobacco abuse, statin intolerance and GERD who presents to ED secondary to chest pain x 1 day. Of significance she follows with [facility] cardiology. She last underwent a stress echocardiogram in December 2022 which was not suggestive of ischemia. Resting echo revealed an EF of 65 to 70%, otherwise no acute abnormality. Her outpatient cardiology records were reviewed. Her is at bedside who also helps elicit history. She states last evening she started noticing left-sided chest pressure that would come and go. It would be made worse with exertion. She would also experience shortness of breath with this as well. She denies any change with position. When taking a deep breath she feels her chest is tight. She is not able to reproduce her symptoms. She states, "it is not a pain, but feels like somebody is pushing on my chest and on my back and she also feels that the pressure goes straight through her back." She does have off-and-on lower extremity swelling but feels this is not unusual for her. She denies any recent significant travel or history of blood clots. She denies any lightheadedness, dizziness, diaphoresis, nausea, vomiting or hemoptysis with these events. She states the symptoms mimic whenever she required a stent to her coronary artery. Up until last night she had been doing very well. She denies any recent illness. She does have a significant amount of stress in her life with her 2 younger sisters suffering from medical illnesses, but she does not feel her stress is more so than usual. She denies any fever, chills, sweats, lightheadedness, dizziness, nausea, vomit, abdominal pain, change in bowel or urinary habits. She states her outpatient PCP has been working with her blood pressure medication and she recently had it increased and she is taking 50 mg in the morning and 100 mg in the evening of labetalol. Admission Exam Per Admitting Provider Constitutional: WD/WN, vitals as above, NAD, sitting up in bed, pleasant, conversing easily Head: Normocephalic, Atraumatic Eyes: PERRL, conjunctivae normal, anicteric sclerae ENMT: external ear and nose normal, oropharynx normal Neck: trachea midline, no thyromegaly normal visual inspection Respiratory: normal respiratory effort, lungs clear to auscultation, no wheeze, rales, rhonchi. Normal insp/exp effort, no accessory muscle use Cardiovascular: RRR, no murmur, Trace lower ext edema Vessels: no JVD or carotid bruit Chest: normal inspection of chest Abdomen: normal bowel sounds, soft, nontender, no hepatosplenomegaly Musculoskeletal: no cyanosis or clubbing, extremities motor strength 5/5 Skin: no rashes, warm and dry normal turgor Neurologic: PERRL, EOMI, accommodation nl, no face palsy, no dysarthria CN's II-XI intact bilaterally and moves all extremities Psychiatric: A+Ox3, euthymic affect Lymphatic: no cervical or axillary lymphadenopathy : deferred Principal Diagnosis Chest pain, ACS rule out Discharge Exam Constitutional: WD/WN, vitals as above, NAD, sitting up in bed, pleasant, conversing easily Respiratory: normal respiratory effort, lungs clear to auscultation, no wheeze, rales, rhonchi. Normal insp/exp effort, no accessory muscle use Cardiovascular: RRR, no murmur, Trace lower ext edema Vessels: no JVD or carotid bruit Chest: normal inspection of chest Abdomen: normal bowel sounds, soft, nontender, no hepatosplenomegaly Musculoskeletal: no cyanosis or clubbing, extremities motor strength 5/5 Skin: no rashes, warm and dry normal turgor Neurologic: PERRL, EOMI, accommodation nl, no face palsy, no dysarthria CN's II-XI intact bilaterally and moves all extremities Psychiatric: A+Ox3, euthymic affect Lymphatic: no cervical or axillary lymphadenopathy : deferred Discharge Data Allergies Allergy/AdvReac Type Severity Reaction Status Date / Time Aminoglycosides Allergy Mild EYE BECAME Verified 08/31/23 16:59 RED,SWOLLEN WITH OPTH IDA gentamicin Allergy Mild EYE BECAME Verified 08/31/23 16:59 RED,SWOLLEN WITH OPTH IDA atorvastatin AdvReac Muscle Pain Verified 08/31/23 17:00 Consultations 08/31/23 16:20 ED Decision to Admit Stat 08/31/23 18:40 Consult Cardiology Routine Procedures Performed Operation Date: 09/01/23 12:30 Actual Procedures p Cineradiography w/Routine Exam - Nimesh Clifford MD p Cath, Left with Cors and Vent - Nimesh Clifford MD Ordered Studies 08/31/23 17:11 CT angio chest PE protocol Stat 09/01/23 09:45 CL Cath Imgs for PACS use only Routine Hospital Course (1) Atypical chest pain: (2) History of coronary artery disease: (3) S/P right coronary artery (RCA) stent placement: (4) COPD (chronic obstructive pulmonary disease): (5) H/O gastroesophageal reflux (GERD): Plan This is a 67-year-old female who has a significant past medical history of CAD with history of RCA stent placement, HTN, HLD, COPD, history of tobacco abuse, statin intolerance and GERD who presents to ED secondary to chest pain x 1 day. Chest pain CAD with history of RCA stent in 2020 Patient is a 67-year-old female with possible history of RCA stent 2020 who presents with chest pain on exertion High sensitive troponin negative Chest CTA on admission do not reveal any PE Echocardiogram shows EF of 60 to 65%; no significant valve abnormalities During the hospitalization, cardiology was consulted. Patient underwent left heart cath on September 01, 2023; nonobstructive CAD with no stent placement. See cardiac cath for further details Patient was started on Imdur 30 mg once a day as per recommendation by cardiology. Patient's omeprazole was changed to Protonix. Patient has a history of hyperlipidemia; not under statin. She will need to be started on PCSK9 inhibitor as outpatient. Patient to follow-up with PCP and cardiology as outpatient Please note the above document was generated using voice recognition software. It may contain grammatical, syntax or spelling errors. Any formal questions or concerns about the content, text or information contained within the body of this dictation should be directly addressed to the provider for clarification. Total Time Total Time Spent Total Time Spent (In Minutes): 45 Total Time Includes: Examination of the Patient, Discharge Planning, Medication Reconciliation, Communication With Other Providers and Other Discharge Plan Discharge Items Patient Disposition: Home - Self-Care Reason For Visit: CHEST PAIN, HX OF CORONARY STENT Discharge Diagnosis: Anginal chest pain, ACS ruled out Activity: Resume your previous activity Non-emergency contact: Primary Care Provider Call non-emergency contact if: you have any medication questions and your symptoms worsen Follow-up/Referrals: Aldo Lam, [Primary Care Provider] - Diet: Regular Addtl Attending Provider Instructions: You were admitted to the hospital with chest pain. You underwent evaluation by cardiology with left heart catheterization. There is no significant blockage seen in the heart vessels. The recommended that you need to be started on Imdur 30 mg once a day. You were also prescribed pantoprazole instead of omeprazole. Stop taking omeprazole; continue on pantoprazole. An appointment with your primary care doctor will be set up in next few weeks. ACTIVITY RECOMMENDATIONS: Excess manipulation of the wrist should be avoided for the next 24-48 hours. * No lifting over 2 pounds (approximately a 1/2 gallon of milk) with the utilized arm for 24 hours. * No strenuous activity such as bowling or tennis for 3 days. * Keep the site of the procedure covered with a bandage for 24 hours. *You may shower the day after the procedure. Do not take a tub bath or submerge the puncture site in water for the next 3 days. *Do not operate any motorized equipment for 3 days. SPECIAL CARE INSTRUCTIONS: The site may be slightly bruised and sore following your procedure. Should any of the following occur, contact the Dr. who performed your procedure. 1. Redness/inflammation, swelling, chills, or fever, or colored drainage at procedure site within 3-7 days after your procedure. 2. Coldness, discoloration, ongoing numbness, severe pain, or swelling. Expect mild tingling of hand and tenderness at the puncture site for up to three days. If this persists beyond three days, or other symptoms develop, notify the Dr. who performed your procedure. BLEEDING: If the procedure site on your wrist begins to bleed, do not panic 1. Place 1 or 2 fingers firmly just slightly above the insertion site to stop the bleeding. You may be able to feel your pulse as you hold pressure. 2. Lift your finger after 5 minutes to see if the bleeding has stopped. 3. Once the bleeding has stopped, gently wipe the wrist area clean with a bandage. * If the bleeding from your wrist does not stop after 10 minutes, or if there is a large amount of bleeding or spurting, call 911 (do not drive yourself to the hospital). SKIN IRRITATION: * You may experience some redness and/or swelling in the area where radiation was administered. If any skin irritation occurs, please contact your family physician. FOLLOW UP VISIT: Keep any scheduled doctor appointments. Pending Studies at Discharge: No Stand-Alone Forms: My [facility] ChatID, Smoking Cessation Medications and DC Order Prescriptions: New pantoprazole 40 mg Tablet,Delayed Release (Dr/Ec) 40 mg PO DAILY Qty: 30 0RF isosorbide mononitrate 30 mg tablet extended release 24 hr 30 mg PO DAILY Qty: 30 0RF Continued AirDuo Digihaler 232-14 mcg/actuation aero powdr breath act w/sensor 1 inh inhalation BID mecobalamin (vitamin B12) 2,500 mcg tablet,chewable 2,500 mcg PO DAILY aspirin 81 mg tablet,delayed release (DR/EC) 81 mg PO QPM nitroglycerin [Nitrostat] 0.4 mg Tablet, Sublingual 0.4 mg sublingual UD PRN (Reason: chest pain) Qty: 30 0RF garlic 500 mg Capsule 500 mg PO BID labetalol 100 mg tablet 100 mg PO HS ezetimibe 10 mg tablet 10 mg PO DAILY labetalol 100 mg tablet 50 mg PO QAM Discontinued omeprazole 20 mg capsule,delayed release(DR/EC) 20 mg PO DAILY Discharge Orders: Discharge Order (Routine); Ordered 09/01/23 Ordered By: Perico Aldana Admission Data Admit Date/Time: 08/31/23 16:45 Attending Provider: Perico Aldana Admit Provider: Ava Moses Primary Care Provider: Aldo Lam Other Providers: Ava Moses; Nimesh Clifford Other Interventions: Discharge Summary Assessment (RN) Last Done: 09/01/23 17:19
[2023-09-01] MEDS: ACETAMINOPHEN 325 MG TAB PO PRN (15:41)
[2023-09-01] MEDS: ONDANSETRON INJ 2 MG/ML 2 ML VIAL IV PRN (15:53)
[2023-09-01] MEDS: SODIUM CHLORIDE 0.9% 1,000 ML IV SCH (16:22)
--- OUTSIDE RECORDS SUMMARY | 2023-09-01 20:21 | External Medical Summary | Summary of Care ---
Author Name Unknown Organization [facility] Address [address] [place] [address] Phone [phone] Care Team Providers Care Carbon Printer Name Role Phone Aldo Lam DO Primary Care Provider [phone] Reason for Visit * Reason Onset Date Comments Advice 08/21/202308/20 Encounter Details Date Type Department Care Team (Late st Contact Info) Description 08/21/2023 Telephone Family Practice [address] [place] [address] [place] [id number] Aldo Lam DO [address] [place] [address] Advice (08/20) Allergies Active Allergy Reactions Criticality Noted Date Comments Gentamicin Sulfate 09/03/2001 Opthalmic ointment- facial swelling documented as of this encounter (statuses as of 08/22/2023) Medications Medication Sig Dispensed Refills Start Date End Date Status Aspirin Low Dose 81 MG Oral Tablet Delayed Release 0 04/20/2021 Active Cyanocobalamin 1000 MCG Oral Tablet (Cyanocobalamin) Take 1 Tablet by mouth in the morning. 0 Active Omeprazole 20 MG Oral Capsule Delayed Release (PriLOSEC)Indicati ons:Gastroesophage al reflux disease without esophagitis TAKE ONE CAPSULE BY MOUTH IN THE MORNING 1 HOUR BEFORE THE FIRST MEAL OF THE DAY 100 Capsule 3 12/27/2022 Active Nitroglycerin 0.4 MG Sublingual Tablet Sublingual (Nitrostat) 1 Tablet. 0 01/12/2023 Active Fluticasone-Salmet alice 250-50 MCG/ACT Inhalation Aerosol Powder Breath Activated (Advair Diskus) Inhale 1 Puff by mouth in the morning and 1 Puff before bedtime. 180 Each 3 03/03/2023 Active Betamethasone Dipropionate 0.05 % External Cream (Diprosone) Apply to outer ears up to three times weekly as needed for itching. 45 g 2 05/25/2023 Active Garlic 500 MG Oral Capsule Take 1 Tablet by mouth in the morning. 0 Active Labetalol HCl 100 MG Oral Tablet (Normodyne)Indicat ions:Coronary artery disease involving picayune coronary artery of picayune heart without angina pectoris,HTN, goal below 140/90 TAKE HALF TABLET in the morning and one tablet at night. 150 Tablet 3 08/22/2023 Active Ezetimibe 10 MG Oral Tablet (Zetia)Indications :Dyslipidemia, goal to be determined Take 1 Tablet by mouth in the morning. 100 Tablet 3 08/22/2023 Active Labetalol HCl 100 MG Oral Tablet (Normodyne)Indicat ions:Coronary artery disease involving picayune coronary artery of picayune heart without angina pectoris,HTN, goal below 140/90 TAKE HALF TABLET BY MOUTH TWICE DAILY 100 Tablet 3 02/06/2023 4 Discontinued Ezetimibe 10 MG Oral Tablet (Zetia)Indications :Dyslipidemia, goal to be determined Take 1 Tablet by mouth in the morning. 100 Tablet 3 02/06/2023 4 Discontinued documented as of this encounter (statuses as of 08/22/2023) Active Problems Problem Noted Date Diagnosed Date Statin intolerance 02/06/2023 HTN, goal below 140/90 07/09/2021 Coronary artery disease invo lving picayune coronary artery of picayune heart without angina pectoris 05/20/2021 S/P right coronary artery (RCA) stent placement 05/20/2021 Gastroesophageal reflux disease without esophagi tis 05/20/2021 Former smoker 05/20/2021 COPD, group A, by GOLD 2017 classification 05/20 Pure hypercholesterolemia 07/04/2003 ROTATOR CUFF SYND, left shoulder 07/04/2003 documented as of this encounter (statuses as of 08/22/2023) Resolved Problems Problem Noted Date Diagnosed Date Resolved Date Screening for diabetes mellitus 05/20/2021 06/03/2021 Adjustment disorder with depressed mood 07/04/2003 05/04/2022 Tobacco use disorder 07/04/2003 021 Varicella without complication 05/20/2021 documented as of this encounter (statuses as of 08/22/2023) Immunizations Name Administration Dates Next Due COVID-19 mRNA, LNP-s, No Pre serve, 2-Dose Series (Pfizer) 07/20/2021,10/21/2020,09/30/2020 PPD 07/27/2006 Pneumococcal Conjugate Vacci ne, 20-valent ([id number]) 08/19/2022 Pneumococcal Polysaccharide PPV23 (Pneumovax) 07/09/2021 TDAP (age 10 and older)(Boostrix) 07/09/2021 Zoster Vaccine Recombinant (Shingrix) 11/29/2021 ,07/09/2021 documented as of this encounter Social History Tobacco Use Types Packs/Day Years Used Date Smoking Tobacco: Former Cigarettes 1 1974 Passive Smoke Exposure: Past Smokeless Tobacco: Never Alcohol Use Standard Drinks/Week Comments No 0 (1 standard drink = 0.6 oz pur e alcohol) PHQ-2 Answer Date Recorded PHQ Adult Total Score 0 02/21/2023 Hunger Vital Sign Answer Date Recorded Within the past 12 months, y ou worried that your food would run out before you got the money to buy more. Never true 02/22/20 23 Within the past 12 months, t he food you bought just didn't last and you didn't have money to get more. Never true 02/21/2023 Sex and Gender Information Value Date Recorded Sex Assigned at Female 05/20/2021 8:05 AM EST Gender Identity Female 05/20/2021 8:05 AM EST Sexual Orientation Straight 05/20/2021 8: 05 AM EST Job Start Date Occupation Industry Not on file Not on file Not on file documented as of this encounter Miscellaneous Notes * Telephone Encounter - Laya Chandler LPN - 08/22/2023 11:55 AM EST Patient is aware and will comply. Thank you Please schedule nurse visit for bp on 08/30 at 1:30 pm Thank you * Telephone Encounter - Aldo Lam DO - 08/22/2023 11:49 AM EST Increase Labetalol to 100 mg one tablet in evening and 1/2 tablet in the morning Repeat BP in 1 week after medication change * Telephone Encounter - Laya Chandler LPN - 08/22/2023 11:19 AM EST Not able to take statins. Is willing to take bp med or increase what she is taking Pharmacy confirmed. Thank you * Telephone Encounter - Mary Rondon OSA - 08/22/2023 10:31 AM EST Returning you call * Telephone Encounter - Mary Rondon OSA - 08/22/2023 9:00 AM EST Returning call * Telephone Encounter - Mary Jane Gutierrez LPN - 08/21/2023 5:02 PM EST Call placed to patient - no answer. Message left to return call to [phone]. 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 He wanted her to do injections and she declines. She did start garlic supplement. Tried niacin but stopped d/t it causing constipation. Pt was agreeable to meeting with Melany in nutrition. Message forwarded to Dr Lam about increasing her Zetia. See other encounter Pt states taking an allergy medication helps with her ears-asking if it is ok to take. Told could try plain zyrtec/claritin/margot-to avoid anything with DM d/t h/o HTN. Pt wanted to make sure this was ok to take. Pt states her blood pressure has been inching up. When takes at home runs between 138-148/72-84. BPtoday was 142/76 and then rechecked at end of appt and was 132/78-pt states her BP seems to elevated with activity. Asking if she should be doing anything different. Message forwarded to Dr Lam for his advice. desktop technician please call pt to schedule appt with nutrition/Melany-thank you! documented in this encounter Plan of Treatment Upcoming Encounters Date Type Department Care Team (Late st Contact Info) Description 08/31/2023 1:30 PM EDT Nurse Only Family Practice [address] [facility] [address] [facility] [place] [phone] College, Nurse Fam Prac [address] [place] [address] 10/26/2023 8:00 AM EDT Office Visit Family Practice [address] [facility] [address] [facility] [place] [phone] Aldo Lam, DO [address] [facility] [place] [address] 11/29/2023 8:40 AM EDT Office Visit Otolaryngology [facility] [address] [facility] [place] [address] Leigha Gregg PA-C [address] [place] [address] 08/26/2024 10:00 AM EDT Nurse Only Ancillary [address] [place] [address] [facility] [place], [place] [address] College, Nurse Annual Wellness Visit [address] [facility] [address] [facility] [place] [address] Health Maintenance Due Date Last Done Comments Alpha-1 Antitrypsin 12/18/1971 Colonoscopy 1998 Sigmoidoscopy 1998 Hepatitis B (3 of 3 - 19+ 3-dose series) 03/06/2002 10/11/2001, 09/03/2001 Cologuard 03/27/2022 03/27/2019 COVID-19 Vaccine ( season) 2023 07/20/2021, 10/21/2020, 09/30/2020 Postponed from 02/17/2023 (Patient Declined After Education) O2 ASSESSMENT COMPLETED IN PAST YEAR FOR COPD 11/11/2023 11/10/2022 GFR 02/07/2024 02/06/2023, 09/18, 05/04/2022, Additional history exists Mammogram 03/07/2024 03/07/2023, 02/17, 01/17/2022, Additional history exists Colorectal Cancer Screening 03/16/2024 Fecal Occult Blood Test 03/16/2024 03/16/20 23, 03/16/2023, 02/18/2022, Additional history exists Depression Screening 08/20/2024 08/21/2023 Albumin/Creatinine Ratio 05/04/2025 05/04/2022 DXA Scan 07/26/2025 07/26/2021, 0212/2021, 03/13/2019 Diabetes Screening 02/06/2026 02/06/2023, 0 10/06/2022, 05/04/2022, Additional history exists DTaP,Tdap,and Td Vaccines (2 - Td or Tdap) 07/09/2031 07/09/2021 Zoster Vaccines Completed 11/29/2021, 07/09/2021 Pneumococcal Vaccine: 65+ Years Completed 08/19/2022, 07/09/2021 GARDASIL-HPV IMMUNIZATION SERIES Aged Out No longer eligible based on patient's age to complete this topic MENINGOCOCCAL (MENACTRA/MENVEO) Aged Out No longer eligible based on patient's age to complete this topic documented as of this encounter Medical Devices Implanted Type Area Manager English Device Identifier Shelf Expiration Date Model / Serial / Lot Tube Ventilation 4.8mmx1.32mm - [id number] Implanted:Qty: 1 on 11/10/2022 by Pankaj Arango DO at OR [facility] Right: [employer] 09/29/2030 [id number] / / [id number] documented as of this encounter Visit Diagnoses Diagnosis Coronary artery disease involving picayune coronary artery of picayune heart without angina pectoris HTN, goal below 140/90 Unspecified essential hypertension Dyslipidemia, goal to be determined Other and unspecified hyperlipidemia documented in this encounter Care Teams Carbon Printer Relationship Specialty Start Date End Date Aldo Lam DO [address] [facility] [place] [address] PCP - General Internal Medicine 05/20/21 documented as of this encounter
--- OUTSIDE RECORDS SUMMARY | 2023-09-01 20:21 | External Medical Summary | Summary of Care ---
Author Name Unknown Organization [facility] Address [address] [place] [address] Phone [phone] Care Team Providers Care Xerox Machine Operator Name Role Phone Aldo Lam DO Primary Care Provider [phone] Reason for Visit * Reason Onset Date Comments Adult Annual Wellness Visit, Subsequent Visit Adult Annual Wellness Visit, Subsequent Visit Encounter Details Date Type Department Care Team (Late st Contact Info) Description 08/21/2023 11:00 AM EST Nurse Only Ancillary [address] [address] College, Nurse Annual Wellness Visit [address] [address] Adult Annual Wellness Visit, Subsequent Vi... Allergies Active Allergy Reactions Criticality Noted Date Comments Gentamicin Sulfate 09/03/2001 Opthalmic ointment- facial swelling documented as of this encounter (statuses as of 08/21/2023) Medications Medication Sig Dispensed Refills Start Date [...] OF THE DAY 100 Capsule 3 12/27/2022 12/27/2023 Active Nitroglycerin 0.4 MG Sublingual Tablet Sublingual (Nitrostat) 1 Tablet. 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 100 Tablet 3 02/06/2023 Active Fluticasone-Salmet alice 250-50 MCG/ACT Inhalation Aerosol [...] by mouth in the morning. 0 Active CoQ10 100 MG Oral Capsule Take by mouth. 0 08/21/2023 Discontinue d(Medicatio n List Clean Up) predniSONE 10 MG Oral Tablet (Deltasone)Indicat ions:Acute non-recurrent frontal sinusitis Take 5 tabs for 2 days, 4 tabs for 2 days, 3 tabs for 2 days, 2 tabs for 2 days 1 tab for 2 days 30 Tablet 0 06/26/2023 08/21/2023 Discontinue d(Medicatio n List Clean Up) documented as of this encounter (statuses as of 08/21/2023) Active Problems Problem Noted Date Diagnosed Date Statin intolerance 02/06/2023 HTN, goal below 140/90 07/09/2021 Coronary artery disease invo lving white earth coronary artery of white earth heart without angina pectoris 05/20/2021 S/P right coronary artery (RCA) stent placement 05/20/2021 Gastroesophageal reflux disease without esophagi tis 05/20/2021 Former smoker 05/20/2021 COPD, group A, by GOLD 2017 classification 05/20 Pure hypercholesterolemia 07/04/2003 ROTATOR CUFF SYND, left shoulder 07/04/2003 documented as of this encounter (statuses as of 08/21/2023) Resolved Problems Problem Noted Date Diagnosed Date Resolved Date Screening for diabetes mellitus 05/20/2021 06/03/2021 Adjustment disorder with depressed mood 07/04/2003 05/04/2022 Tobacco use disorder 07/04/2003 021 Varicella without complication 05/20/2021 documented as of this encounter (statuses as of 08/21/2023) Immunizations Name Administration Dates Next Due COVID-19 mRNA, LNP-s, No Pre serve, 2-Dose Series (Pfizer) 07/20/2021,10/21/2020,09/30/2020 PPD 07/27/2006 Pneumococcal Conjugate Vacci ne, 20-valent ([id number]) 08/19/2022 Pneumococcal Polysaccharide PPV23 (Pneumovax) 07/09/2021 TDAP (age 10 and older)(Boostrix) 07/09/2021 Zoster Vaccine Recombinant (Shingrix) 11/29/2021 ,07/09/2021 documented as of this encounter Social History Tobacco Use Types Packs/Day Years Used Date Smoking Tobacco: Former Cigarettes 1 1 1974 Passive Smoke Exposure: Past Smokeless [...] on file documented as of this encounter Last Filed Vital Signs Vital Sign Reading Time Taken Comments Blood Pressure 132/78 08/21/2023 11:53 AM EST Pulse 75 08/21/2023 11:26 AM EST Temperature 36.7 C (98.1 F) 08/21/2023 11:[address] Respiratory Rate - - Oxygen Saturation 95% 08/21/2023 11:26 AM EST Inhaled Oxygen Concentration - - Weight 75.1 kg (165 lb 9.6 oz) 08/21/2023 11:26 AM EST Height 151.8 cm (4' 11.75") 08/21/2023 11:26 AM EST Body Mass Index 32.61 08/21/2023 11:26 AM EST documented in this encounter Patient Instructions * Patient Instructions* Laya Ahn RN - 08/21/2023 11:51 AM EST Hi Ms. Paez, As your primary care physician, I know that regular visits with my patients who have several chronic conditions can go a long way in helping you stay healthy. Many times, the clinic team and I are in touch with you and/or other care team members between office visits to adjust medications, discuss any changes in your health, and review our care plan to make sure it is still meeting your needs. I am dedicated to helping you take a more active role in your overall care. It is important that there are resources available to you, so I created a personalized plan of care with a Health Calendar for you, which is included on the next page of this letter. Below is a list that summarizes your electronic health record: Health Maintenance Due: Health Maintenance Due Topic Date Due Alpha-1 Antitrypsin Never done Hepatitis B (3 of 3 - 19+ 3-dose series) 03/06/2002 COVID-19 Vaccine (2022-24 season) 2023 Current Medication List: (as of Visit date not found (in office), Visit date not found (telemedicine) ) Current Outpatient Medications Medication Sig Dispense Refill Aspirin Low Dose 81 MG Oral Tablet Delayed Release Cyanocobalamin 1000 MCG Oral Tablet (Cyanocobalamin) Take 1 Tablet by mouth in the morning. Omeprazole 20 MG Oral Capsule Delayed Release (PriLOSEC) TAKE ONE CAPSULE BY MOUTH IN THE MORNING 1 HOUR BEFORE THE FIRST MEAL OF THE DAY 100 Capsule 3 Nitroglycerin 0.4 MG Sublingual Tablet Sublingual (Nitrostat) 1 Tablet. Labetalol HCl 100 MG Oral Tablet (Normodyne) TAKE HALF TABLET BY MOUTH TWICE DAILY 100 Tablet 3 Ezetimibe 10 MG Oral Tablet (Zetia) Take 1 Tablet by mouth in the morning. 100 Tablet 3 Fluticasone-Salmeterol 250-50 MCG/ACT Inhalation Aerosol Powder Breath Activated (Advair Diskus) Inhale 1 Puff by mouth in the morning and 1 Puff before bedtime. 180 Each 3 Betamethasone Dipropionate 0.05 % External Cream (Diprosone) Apply to outer ears up to three times weekly as needed for itching. 45 g 2 Garlic 500 MG Oral Capsule Take 1 Tablet by mouth in the morning. No current facility-administered medications for this visit. Current List of Allergies: (as of Visit date not found (in office), Visit date not found (telemedicine) ) Review of patient's allergies indicates: Allergen Reactions Gentamicin Sulfate Opthalmic ointment- facial swelling Most Recent Lab Results: Results for orders placed or performed in visit on 06/26/23 LIPID PANEL WITH DIRECT LDL IF TG IS HIGH Result Value Ref Range Triglycerides 61 <=174 mg/dL Cholesterol 190 <200 mg/dL HDL Cholesterol 61 >49 mg/dL Non-HDL Cholesterol 129 <=159 mg/dL LDL Cholesterol 117 <=129 mg/dL ALT Result Value Ref Range ALT 20 10 - 35 U/L Sincerely, Aldo Lam, DO 08/21/2023 [email or web address] Calendar (as of Visit date not found (in office), Visit date not found (telemedicine) ) Care needs Care needs Last completed Due next Alpha-1 Antitrypsin --- Never done Hepatitis B vaccine (3 of 3 - 19+ 3-dose series) 10/11/2001 03/06/2002 COVID-19 Vaccine ( season) 2021 02/17/2023 Yearly COPD oxygen test 11/10/2022 11/11/2023 Kidney Function Test 02/06/2023 02/07/2024 Mammogram 03/07/2023 03/07/2024 Colorectal cancer screening (colonoscopy 10 years, sigmoidoscopy 5 years, Cologuard 3 years, stool sample 1 year) 03/16/2023 03/16/2024 Urine albumin/creatinine test 05/04/2022 05/04/2025 Bone Density 07/26/2021 07/26/2025 Diabetes Screening 02/06/2023 02/06/2026 Diphtheria, tetanus & pertussis vaccines (2 - Td or Tdap) 07/09/2021 07/09/2031 As you look over the recommended services, be sure to check with your insurance company to determine what's covered. [employer] is a great tool that helps you review your medical record online, including test results, doctor notes and your health summary. You can also schedule appointments with me and other members of your care team, request prescription refills and ask for advice related to your medical conditions at [email or web address]. documented in this encounter Progress Notes * Laya Ahn RN - 08/21/2023 11:29 AM EST AD8 Dementia Screening Interview Person answering questions: patient Remember, "Yes, a change" indicates that there has been a change in the last several years caused by cognitive (thinking and memory) problems 1. Problems with judgement (eg: problems making decisions, bad financial decisions, problems with thinking). No (0) 2. Less interest in hobbies/activities. No (0) 3. Repeats the same things over and over (questions, stories, or statements). No (0) 4. Trouble learning how to use a tool, appliance, or gadget (eg: VCR, computer, microwave, remote control). No (0) 5. Forgets correct month or year. No (0) 6. Trouble handling complicated financial affairs (eg: balancing checkbook, income taxes, paying bills). No (0) 7. Trouble remembering appointments. No (0) 8. Daily problems with thinking and/or memory. No (0) TOTAL AD8: 0 - AD8 Dementia Screening Score The final score is a sum of the number items marked "Yes, A Change". 0 - 1: Normal cognition; 2 or greater: Cognitive impairments is likely to be present - further testing required Adult Annual Wellness Visit: Ashlyn Paez is a 67 year old female who presents for an Adult Annual Wellness Visit. Depression Screening: Did the patient complete the screening questionnaire for Depression? Yes Is the patient's total score for Depression 15 or greater? No, no further intervention needed, unless requested by patient. Did the patient answer positively to the suicide question? No, no further intervention needed, unless requested by patient. In general, compared to other people your age, what would you say that your health is? Good Ht Readings from Last 1 Encounters: 08/21/23 1.518 m (4' 11.75") Wt Readings from Last 1 Encounters: 08/21/23 75.1 kg (165 lb 9.6 oz) Body Mass Index: BMI Greater than 30 Body mass index is 32.61 kg/m. 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 KNEE ARTHROSCOPY/MENISCECTOMY Left 03/18/2022 ARTHROSCOPY KNEE MEDIAL OR LATERAL MENISCECTOMY performed by Bimal Worrell, at OR [facility] REMOVAL OF KIDNEY STONE REMOVE GALLBLADDER REMOVE VENTILATING TUBE, OTHER PHYS Right 11/10/2022 VENTILATING TUBE REMOVAL MIDDLE EAR GENERAL ANESTHESIA performed by Pankaj Arango DO at OR [facility] TOTAL HYSTERECTOMY retained ovaries, for fibroids Family History Problem Relation Age of Onset Diabetes Mother Heart Disorder Mother Cervical Cancer Mother Hypertension Father COPD Sister Heart Disorder Sister COPD Sister Diabetes Grandmother (Maternal) Lung cancer Grandmother (Maternal) Diabetes Grandfather (Maternal) Other (renal disease) Grandmother (Paternal) Heart disease Grandfather (Paternal) Breast Cancer No significant family history Has patient ever had cancer? No Social History Tobacco Use Smoking status: Former Current packs/day: 0.00 Average packs/day: 1 pack/day for 20.0 years (20.0 ttl pk-yrs) Types: Cigarettes Start date: 1956 Quit date: 1974 Years since quittin.2 Passive exposure: Past Smokeless tobacco: Never Substance Use Topics Alcohol use: No Vaping/E-Cigarette Use Vaping/E-Cigarette Use Never User Vaping/E-Cigarette Substances Vaping/E-Cigarette Devices Tobacco/Alcohol screening completed today? Yes Hospital Care: Admissions (within the last year): Hospital, Location: [facility] Date of Admission: 01/10/2023 ER within 30 days: No Does the patient have an Advance Directives/Living Will? No. Does the patient want information? Yes. Information given to patient Last Physical Exam: Last physical exam: 06/26/23 Does patient see primary provider regularly? Yes Does patient see other providers? Yes, Specialist Patient Care Team updated? Yes Review of patient's allergies indicates: Allergen Reactions Gentamicin Sulfate Opthalmic ointment- facial swelling Immunization History Administered Date(s) Administered COVID-19 mRNA, LNP-s, No Preserve, 2-Dose Series (Boastify) 09/30/2020, 10/21/2020, 07/20/2021 Hepatitis B, 20+ yrs 09/03/2001, 10/11/2001 MMR - Measles/Mumps/Rubella Vaccine 09/03/2001 PPD 09/03/2001, 07/27/2006 Pneumococcal Conjugate Vaccine, 20-valent ([id number]) 08/19/2022 Pneumococcal Polysaccharide PPV23 (Pneumovax) 07/09/2021 TDAP (age 10 and older)(Boostrix) 07/09/2021 Zoster Vaccine Recombinant (Shingrix) 07/09/2021, 11/29/2021 Current Outpatient Medications Medication Sig Dispense Refill Aspirin Low Dose 81 MG Oral Tablet Delayed Release Cyanocobalamin 1000 MCG Oral Tablet (Cyanocobalamin) Take 1 Tablet by mouth in the morning. Omeprazole 20 MG Oral Capsule Delayed Release (PriLOSEC) TAKE ONE CAPSULE BY MOUTH IN THE MORNING 1HOUR BEFORE THE FIRST MEAL OF THE DAY 100 Capsule 3 Nitroglycerin 0.4 MG Sublingual Tablet Sublingual (Nitrostat) 1 Tablet. Labetalol HCl 100 MG Oral Tablet (Normodyne) TAKE HALF TABLET BY MOUTH TWICE DAILY 100 Tablet 3 Ezetimibe 10 MG Oral Tablet (Zetia) Take 1 Tablet by mouth in the morning. 100 Tablet 3 Fluticasone-Salmeterol 250-50 MCG/ACT Inhalation Aerosol Powder Breath Activated (Advair Diskus) Inhale 1 Puff by mouth in the morning and 1 Puff before bedtime. 180 Each 3 Betamethasone Dipropionate 0.05 % External Cream (Diprosone) Apply to outer ears up to three times weekly as needed for itching. 45 g 2 Garlic 500 MG Oral Capsule Take 1 Tablet by mouth in the morning. No current facility-administered medications for this visit. 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 Yes Patient takes medications as prescribed? Yes Patient manages own medications: Yes Patient uses a pill box? Yes, refill(s) completed by self Dental Exam: Yes: Every 6 Months Eye Screening: hs been a few years Are you having trouble with hearing? No Do you use an assistive device to help your hearing? No Exercise Screening: only the exercise associated with activities at work Nutrition Assessment: Eats a balanced diet and Eats three meals a day Pain Screening: Are you having any pain? No Sleep Screening Tool 'STOP': Do you snore? No Do you feel fatigued during the day? No Do you wake up feeling like you haven't slept? No Have you been told you stop breathing at night? No Do you gasp for air or choke while sleeping? No Have you been told you have Sleep Apnea? No Do you have high blood pressure or are on medication(s) to control high blood pressure? Yes SCORE: If you check YES to two or more questions, make a referral for Obstructive Sleep Apnea Patient and Caregiver Support System: Patient lives alone Means of Transportation: Drives. Not a concern. Patient lives in [place] Community Resources: Not Applicable Functional Status and ADL Skills: Has patient ever had an amputation? No Functional Assessment: 100- Normal, no complaints, no evidence of disease Ambulation: Patient ambulates without assistive device. Independent Dressing: Gets clothes and dresses without any assistance: Independent Able to move freely in chair or bed including turning over: Independent Repositioning (bed or chair): Not applicable Transfers: Independent Toileting: Goes to bathroom, uses toilet, arranges clothes and returns without any assistance: Independent Toileting: continent of bladder and continent of bowel Feeding: Self Bathing: Self; bath and shower-shower inside tub, grab bars, textured floor in tub, steps out onto a mat-no skid Requires none assistance with ADLs. Instrumental ADL's: Shopping: Independent Housekeeping: Independent Handling Finances: Independent DME Vendor Name: Not Applicable Fall Risk Assessment: Can the patient demonstrate that she can stand from a sitting position? Yes Has the patient had a fall within the last 6 months? No Does the patient have a problem with her gait or balance? No Does the patient take 4 or more prescription medicines? Yes Does the patient use sedatives or narcotics? No Fall Risk Factors Present: Uses more than 4 medications Vpt-Gi-cwi-Go Test: Time began at 11:00. Patient stood from sitting position and walked approximately 10 feet, returnedand sat down. Total time for qvy-zw-uss-go test was 7.50 seconds. Ont-Wg-hnc-Go Test completed? Yes Gender Specific Preventative Plan: Health Maintenance Topic Date Due Alpha-1 Antitrypsin Never done Hepatitis B (3 of 3 - 19+ 3-dose series) 03/06/2002 COVID-19 Vaccine ( season) 2023 O2 ASSESSMENT COMPLETED IN PAST YEAR FOR COPD 11/11/2023 GFR 02/07/2024 Mammogram 03/07/2024 Colorectal Cancer Screening 03/16/2024 Depression Screening 08/20/2024 Albumin/Creatinine Ratio 05/04/2025 DXA Scan 07/26/2025 Diabetes Screening 02/06/2026 DTaP,Tdap,and Td Vaccines (2 - Td or Tdap) 07/09/2031 Zoster Vaccines Completed Pneumococcal Vaccine: 65+ Years Completed MENINGOCOCCAL (MENACTRA/MENVEO) Aged Out GARDASIL-HPV IMMUNIZATION SERIES Aged Out Follow Up/ Referrals/Handouts: No further action needed Routine general medical examination at a health care facility (Primary) Pure hypercholesterolemia Lab Results Component Value Date/Time LDL (CALCULATED)-OUTSIDE LAB 108 09/30/2020 12:00 AM LDL CHOLESTEROL (CALCULATED) - [facility] 117 06/26/2023 08:34 AM LDL CHOLESTEROL (CALCULATED) - [facility] 132 (H) 06/18/2002 09:24 AM Continue to monitor diet/exercise and with current medication. 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 He wanted her to do injections and she declines. She did start garlic supplement. Tried niacin but stopped d/t it causing constipation. Pt was agreeable to meeting with Melany in nutrition. Message forwarded to Dr Lam about increasing her Zetia. See other encounter. 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 Continue to follow with cardiology COPD, group A, by GOLD 2017 classification ([facility]) Continue to monitor and with current medication Pt states taking an allergy medication helps [...] if she should be doing anything different. Discussed importance of following with any eye provider. Discussed doing a living will-paperwork given-to bring in a copy once completed to have scanned into her chart. Pt declines flu and covid vaccines Follow Up: Return in 1 year (on 08/20/2024) for 12 month Subsequent Adult Wellness Visit. | For: 12 month Subsequent Adult Wellness Visit | Check-out note: 12 month Subsequent Adult Wellness Visit Would patient like to schedule next AWV visit? Yes Laya Ahn RN documented in this encounter Miscellaneous Notes * Pt Handout (on AVS) - Laya Ahn RN - 08/21/2023 11:50 AM EST Images from the original note were not included. [id number] Preventing Falls: Making Changes in Your Living Space Is your living space filled with hazards that could cause you to fall? Changes can make you safer. They could even save your life. Take a careful look around your home. Change what you can on your own. Hire someone or ask friends or family to help with harder tasks. Be sure to add a nonslip mat to the inside of your shower or bathtub. Always keep a nightlight on. Keep a clear path from your bed to the bathroom. Move items from higher shelves to lower ones. Remove hazards Remove things that can trip you, like throw rugs, boxes, piles of paper, or cords. Nail down rugs or carpeting if you don't want to remove them. Use slip- resistant backing. Don't store items on stairs. Keep walkways clear. Clean up spills right away. Replace glass tables with wooden ones. They're safer if you fall. Add safety devices Add handrails to both sides of stairs. Buy a raised toilet seat. Add grab bars near the toilet and in the shower. Get grabbers to help you reach things and avoid climbing. Improve lighting Add nightlights to halls, bedrooms, and bathrooms. Put light switches at the top and bottom of stairs. Be sure each room and flight of stairs has proper lighting. Use shades or curtains to cut glare from windows. Put flashlights in each room. Replace burned-out bulbs. Get glowing light switches for room entrances. Take other precautions Use nonskid floor wax. Buy a nonslip mat and a liquid soap dispenser for the shower. Put most-used items within easy reach. Add bright paint or tape on the top front edge of steps. Save big jobs, such as moving furniture or other heavy objects, for family or friends. Get professional help installing grab bars. They can be unsafe if not installed the right way. Fix riskier rooms first Don't tackle everything at once. Focus on one room at a time. The bathroom is a common spot for falls, so you may want to start there. Or start with a room you spend lots of time in, such as your bedroom. Make only a few changes at once. This will give you time to adjust to them. Outside safety You might arrange for these changes yourself, or you might need to talk to your tube building machine operator or[employer]' association about them. Have loose boards on porches or damaged stairs repaired. Have rough edges, holes, or large cracks in sidewalks or driveways repaired. Remove hazards that could trip you, such as hoses or valentin. Use high-wattage light bulbs (100 garcia or greater) near outside doors and stairs. Add handrails to outside stairs. Have them extend beyond the bottom step. Get help in winter weather with ice or snow removal. Last Reviewed Date: 05/19/202219993862-6148 [employer]. All rights reserved. This information is not intended as a substitute for professional medical care. Always follow your healthcare professional's instructions. * Pt Handout (on AVS) - Laya Ahn RN - 08/21/2023 11:49 AM EST [id number] Fall Prevention Falls often take place due to slipping, tripping, or losing your balance. Millions of people fall every year and injure themselves. Among older adults in the [place] falls are the most common cause of traumatic brain injuries. Every 20 minutes, an older adult dies from a fall. Here are ways to reduceyour risk of falling again: Think about your fall. Was there anything that caused your fall that can be fixed, removed, or replaced? Make your home safe by keeping walkways clear of objects you may trip over, such as electrical cords. Use nonslip pads under rugs. Don't use area rugs or small throw rugs. Use nonslip mats in bathtubs and showers. Hang grab rails by the toilet and inside and outside the shower. Install handrails and lights on staircases. The handrails should be on both sides of the stairs. Use night lights. Don't walk in poorly lit areas. Don't stand on chairs or wobbly ladders. Use care when reaching overhead or looking up. This position can cause a loss of balance. Be sure your shoes fit well, are in good condition, and have nonslip bottoms. Wear shoes both inside and outside of your home. Don't go barefoot or wear slippers. Be cautious when going up and down stairs, curbs, and when walking on uneven sidewalks. If your balance is poor, consider using a cane or walker. Talk with your healthcare provider about having a balance assessment. If your fall was related to alcohol use, stop or limit alcohol intake. Ask your provider for help if you think you may overuse alcohol and can't stop. If your fall was related to use of sleeping medicines, talk with your provider about this. You may need to reduce your dosage at bedtime if you wake up during the night to go to the bathroom. To reduce the need for nighttime bathroom trips: o Don't drink fluids for several hours before going to bed o Empty your bladder before going to bed o Men can keep a urinal at the bedside Stay as active as you can. Balance, flexibility, strength, and endurance all come from exercise.They all play a role in preventing falls. Ask your provider which types of activity are right for you. Try to do some type of exercise every day. Get your eyes checked once a year or more often if your vision changes If you have pets, know where they are before you stand up or walk so you don't trip over them. Go over all your medicines with a pharmacist or other provider. This is to see if any of them could make you more likely to fall. Have this type of medicine review at least once every year. If your provider advises a new medicine, ask if the side effects will affect your balance. Don't move quickly from one position to another. For instance, don't stand up fast from sitting.This can cause dizziness and may lead to a fall. Sit down when putting on pants, socks, and shoes. This will make you less likely to lose your balance and fall. Always let your provider know if you have fallen since your last visit. Contact your provider right away if you're having balance problems or falling more often. Last Reviewed Date: 06/19/202119993934-8518 The [employer]. All rights reserved. This information is not intended as a substitute for professional medical care. Always follow your healthcare professional's instructions. documented in this encounter Plan of Treatment Upcoming Encounters Date Type Department Care Team (Late st Contact Info) Description 10/26/2023 8:00 AM EDT Office Visit Family Practice 65 [facility] [address] [place] [address] Aldo Lam DO [address] [place] [address] 11/29/2023 8:40 AM EDT Office Visit Otolaryngology [facility] 132 [facility] [place] [address] Leigha Gregg PA-C [address] [place] [address] 08/26/2024 10:00 AM EDT Nurse Only Ancillary [address] [place] [address] College, Nurse Annual Wellness Visit [address] [address] Health Maintenance Due Date Last Done Comments [...] Ratio 05/04/2025 05/04/2022 DXA Scan 07/26/2025 07/26/2021, 12/2021, 03/13/2019 Diabetes Screening 02/06/2026 02/06/2023, 0 10/06/2022, [...] this encounter Medical Devices Implanted Type Area Cabin Crew Device Identifier Shelf Expiration Date Model / Serial / Lot Tube Ventilation 4.8mmx1.32mm - [id number] Implanted:Qty: 1 on 11/10/2022 by Pankaj Arango DO at OR [facility] Right: Ear [employer] 09/29/2030 [id number] / / [id number] documented as of this encounter Visit Diagnoses Diagnosis Routine general medical examination at a health care facility- Primary Pure hypercholesterolemia HTN, goal below 140/90 Unspecified essential hypertension Gastroesophageal reflux disease without esophagitis Esophageal reflux Former smoker Personal history of tobacco use, presenting hazards to health 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
[2023-09-01] MEDS ORDERED: ASPIRIN 81 MG ECTAB PO SCH (21:00)
--- NOTE | 2023-09-02 06:57 | Electrocardiogram Report ---
Test Reason : Blood Pressure : / mmHG Vent. Rate : 065 BPM Atrial Rate : 065 BPM P-R Int : 192 ms QRS Dur : 074 ms QT Int : 420 ms P-R-T Axes : 053 -22 026 degrees QTc Int : 436 ms Normal sinus rhythm Possible Left atrial enlargement Borderline ECG When compared with ECG of 12-JAN-2023 05:57, No significant change was found Confirmed by Nimesh Clifford ([id number]) on 09/02/2023 6:57:30 AM Referred By: Confirmed By:Nimesh Clifford
--- NOTE | 2023-09-02 07:35 | Electrocardiogram Report ---
Test Reason : Blood Pressure : / mmHG Vent. Rate : 068 BPM Atrial Rate : 068 BPM P-R Int : 202 ms QRS Dur : 086 ms QT Int : 432 ms P-R-T Axes : 062 -12 022 degrees QTc Int : 459 ms Normal sinus rhythm Inferior infarct , age undetermined Cannot rule out Anterior infarct , age undetermined Abnormal ECG When compared with ECG of 31-AUG-2023 14:22, No significant change was found Confirmed by Nimesh Clifford ([id number]) on 09/02/2023 7:35:51 AM Referred By: REFERRED SELF Confirmed By:Nimesh Clifford
--- OUTSIDE RECORDS SUMMARY | 2023-09-02 14:58 | External Medical Summary | Summary of Care ---
Author Name Unknown Organization [facility] Address [address] [facility] [address] Phone [phone] Care Team Providers Care Turner Off Name Role Phone Aldo Lam DO Primary Care Provider [phone] Reason for Visit * Reason Comments Follow Up Encounter Details Date Type Department Care Team (Late st Contact Info) Description 08/31/2023 1:30 PM EDT Nurse Only Family Practice 65 [facility] [address] [place] [id number] College, Nurse [facility] [address] [address] Follow Up Allergies Active Allergy Reactions Criticality Noted Date Comments Gentamicin Sulfate 09/03/2001 Opthalmic ointment- facial swelling documented as of this encounter (statuses as of 08/31/2023) Medications Medication Sig Dispensed Refills Start Date End Date Status Aspirin Low Dose 81 MG Oral Tablet Delayed Release 0 04/20/2021 Active Cyanocobalamin 1000 MCG Oral Tablet (Cyanocobalamin) Take 1 Tablet by mouth in the morning. 0 Active Omeprazole 20 MG Oral Capsule Delayed Release (PriLOSEC)Indication s:Gastroesophageal reflux disease without esophagitis TAKE ONE CAPSULE BY MOUTH IN THE MORNING 1 HOUR BEFORE THE FIRST MEAL OF THE DAY 100 Capsule 3 12/27/2022 12/27/2023 Active Nitroglycerin 0.4 MG Sublingual Tablet Sublingual (Nitrostat) 1 Tablet. 0 01/12/2023 Active Fluticasone-Salmeter ol 250-50 MCG/ACT Inhalation Aerosol Powder Breath Activated [...] Active Labetalol HCl 100 MG Oral Tablet (Normodyne)Indicatio ns:Coronary artery disease involving shawnee coronary artery of shawnee heart without angina pectoris,HTN, goal below 140/90 TAKE HALF TABLET in the morning and one tablet at night. 150 Tablet 3 08/22/2023 Active Ezetimibe 10 MG Oral Tablet (Zetia)Indications:D yslipidemia, goal to be determined Take 1 Tablet by mouth in the morning. 100 Tablet 3 08/22/2023 Active documented as of this encounter (statuses as of 08/31/2023) Active Problems Problem Noted Date Diagnosed Date Statin intolerance 02/06/2023 HTN, goal below 140/90 07/09/2021 Coronary artery disease invo lving shawnee coronary artery of shawnee heart without angina pectoris 05/20/2021 S/P right coronary artery (RCA) stent placement 05/20/2021 Gastroesophageal reflux disease without esophagi tis 05/20/2021 Former smoker 05/20/2021 COPD, group A, by GOLD 2017 classification 05/20 Pure hypercholesterolemia 07/04/2003 ROTATOR CUFF SYND, left shoulder 07/04/2003 documented as of this encounter (statuses as of 08/31/2023) Resolved Problems Problem Noted Date Diagnosed Date Resolved Date Screening for diabetes mellitus 05/20/2021 06/03/2021 Adjustment disorder with depressed mood 07/04/2003 05/04/2022 Tobacco use disorder 07/04/2003 021 Varicella without complication 05/20/2021 documented as of this encounter (statuses as of 08/31/2023) Immunizations Name Administration Dates Next Due COVID-19 mRNA, LNP-s, No Pre serve, 2-Dose Series (Empiribox) 07/20/2021,10/21/2020,09/30/2020 PPD 07/27/2006 Pneumococcal Conjugate Vacci ne, 20-valent ([id number]) 08/19/2022 Pneumococcal Polysaccharide PPV23 (Pneumovax) 07/09/2021 TDAP (age 10 and older)(Boostrix) 07/09/2021 Zoster Vaccine Recombinant (Shingrix) 11/29/2021 ,07/09/2021 documented as of this encounter Social History Tobacco Use Types Packs/Day Years Used Date Smoking Tobacco: Former Cigarettes 07 08 1 1974 Passive Smoke Exposure: Past Smokeless [...] Sign Reading Time Taken Comments Blood Pressure 160/80 08/31/2023 1:56 PM EDT Pulse 66 08/31/2023 1:56 PM EDT Temperature - - Respiratory Rate - - Oxygen Saturation 98% 08/31/2023 1:56 PM EDT Inhaled Oxygen Concentration - - Weight - - Height - - Body Mass Index - - documented in this encounter Progress Notes * Laya Chandler LPN - 08/31/2023 2:03 PM EDT Patient presented for bp check. States she is having active chest pressure and sob with exertion. Bp as documented. Called provider, advised er. Patient in agreement with er. Offered ems, states she has a operator and truck driver that can take her. Er called with report. Thank you documented in this encounter Nursing Notes * Ramesh Laya CarreraADRIANNA - 08/31/2023 1:54 PM EDT Here for bp check, states that she has chest heaviness under her breast goes thru her back. Does have sob with pain. No radiation to jaw or down arm. documented in this encounter Plan of Treatment Upcoming Encounters Date Type Department Care Team (Late st Contact Info) Description 10/26/2023 8:00 AM EDT Office Visit Family Practice 65 [facility] [address] [place] [address] Aldo Lam, 293 [place] [address] 11/15/2023 11:20 AM EDT Office Visit Otol[facility]ology [facility] 132 [facility] [place] [address] Leigha Gregg PA-C [address] [facility] [address] 08/26/2024 10:00 AM EDT Nurse Only Ancillary 65 [facility] 293 [place] [address] College, Nurse Annual Wellness Visit [address] [place] [address] Health Maintenance Due Date Last Done Comments Alpha-1 Antitrypsin 12/18/1971 Colonoscopy 1998 Sigmoidoscopy 1998 Hepatitis B (3 of 3 - 19+ 3-dose series) 03/06/2002 10/11/2001, 09/03/2001 Cologuard 03/27/2022 03/27/2019 COVID-19 Vaccine ( season) 2023 07/20/2021, 10/21/2020, 09/30/2020 O2 ASSESSMENT COMPLETED IN PAST YEAR FOR [...] this encounter Medical Devices Implanted Type Area Metallurgist Process Device Identifier Shelf Expiration Date Model / Serial / Lot Tube Ventilation 4.8mmx1.32mm - [id number] Implanted:Qty: 1 on 11/10/2022 by Pankaj Arango DO at OR [facility] Right: Ear [employer] 09/29/2030 [id number] / / [id number] documented as of this encounter Care Teams Turner Off Relationship Specialty Start Date End Date Aldo Lam DO [address] [facility] [place] [address] PCP - General Internal Medicine 05/20/21 documented as of this encounter
== END 2023-09-01 18:36 | disposition home or self-care (01) ==
LOC: 2S 14:11 → ED 14:11 → SUATTDRO 16:45 → 2S 17:55
DX: I25.118 Atherosclerotic heart disease of native coronary artery with other forms of angina pectoris; Z88.8 Allergy status to other drugs, medicaments and biological substances; I10 Essential (primary) hypertension; K21.9 Gastro-esophageal reflux disease without esophagitis; Z79.82 Long term (current) use of aspirin; Z79.899 Other long term (current) drug therapy; Z95.818 Presence of other cardiac implants and grafts; Z87.891 Personal history of nicotine dependence; E78.5 Hyperlipidemia, unspecified; J44.9 Chronic obstructive pulmonary disease, unspecified; Z88.1 Allergy status to other antibiotic agents